=== PATIENT | male | born 1955 | race Caucasian/White ===

== ENCOUNTER 2017-04-30 09:02 | Day surgery (SDC) | payer BC, OTHER ==
[~2017-04-30 09:02] MED LIST: Acetaminophen 325 MG Tab PO PRN; Cataract Ophth Solution EYELF ONE; Moxifloxacin 0.5% Ophth Soln 3 ML Bottle EYELF ONE; Ondansetron 4 MG/2 ML SDV IVPUSH PRN; Phenylephrine 10% Ophth Soln 5 ML Bot EYELF ONE; Phenylephrine 10% Ophth Soln 5 ML Bot EYELF PRN; Povidone-Iodine 5% Sterile Ophth Soln 30 ML Bottle EYELF ONE; Proparacaine 0.5% Ophth Soln 15 ML Bottle EYELF ONE; Sodium Chloride 0.9% 10 ML Syringe FLUSH PRN; Timolol Maleate 0.5% Ophth Soln 5 ML Bottle EYELF ONE
[2017-04-30] MEDS ORDERED: Midazolam 1 MG/ML 2 ML SDV IV ONE (09:03)
[2017-04-30] MEDS ORDERED: Sodium Chloride 0.9% 10 ML Syringe IV ONE (09:03)
[2017-04-30] MEDS ORDERED: Dexamethasone 4 MG/ML SDV IV ONE (09:03)
[2017-04-30] MEDS ORDERED: Povidone-Iodine 5% Sterile Ophth Soln 30 ML Bottle EYELF ONE (10:21)
[2017-04-30] MEDS ORDERED: Tetracaine HCl/PF 0.5% 4 ML Bottle EYELF ONE (10:21)
[2017-04-30] MEDS ORDERED: Lidocaine 1% 30 ML SDV ONE (10:21)
[2017-04-30] MEDS ORDERED: Diclofenac Sodium 0.1% Ophth Soln 5 ML Bottle EYELF ONE (10:22)
[2017-04-30] MEDS ORDERED: Dexamethasone/Neomycin/Polymyxin B Ophth Oint 3.5 GM Tube EYELF ONE (10:22)
[2017-04-30] MEDS ORDERED: Apraclonidine 0.5% Ophth Soln 5 ML Bot EYELF ONE (10:22)
[2017-04-30] MEDS ORDERED: Vancomycin 500 MG SDV EYELF ONE (10:22)
[2017-04-30] MEDS ORDERED: Balanced Salt Solution Ophth Irrig 500 ML Bottle IOCULAR ONE (10:22)
[2017-04-30] MEDS ORDERED: Chondroitin Sulfate/Hyaluronate Sodium Ophth Inj 0.75 ML Syringe EYELF ONE (10:23)
--- NOTE | 2017-04-30 11:08 | OR ---
DATE: 04/30/2017 PREOPERATIVE DIAGNOSIS: Cataract, left eye. POSTOPERATIVE DIAGNOSIS: Cataract, left eye. PROCEDURE: Extracapsular cataract extraction with intraocular lens implant, left eye. ANESTHESIA: Topical/local MAC. COMPLICATIONS: None. INDICATION: Mr. Najera was seen in the clinic with complaints of blurred vision, difficulty reading, difficulty seeing road signs. His clinical examination revealed nuclear and cortical cataract. I explained options to Mr. Najera. I offered cataract surgery and I explained risks including, but not limited to infection, retinal detachment, loss of vision, need for additional surgery, and risks associated with anesthesia. We discussed implant options. He has requested a monofocal implant. He is a habitual myop, and we have discussed refractive targets. He has requested a target of [id number] myopia. He understands that he will likely need glasses for best vision, symptomatic. He voiced an understanding with respect to risks and options and is motivated to proceed. OPERATIVE DESCRIPTION: After informed consent was obtained and the risks, benefits, and alternatives were explained, the patient was brought to the operative suite and topical anesthesia was administered. The patient was then prepped and draped in the sterile fashion and attention was placed on the left eye. A sterile lid speculum was placed into the left eye to allow operative exposure. A full-thickness paracentesis was made in the temporal portion of the operative eye. Preservative-free lidocaine 0.1 mL was injected into the anterior chamber followed by viscoelastic. A full-thickness corneal incision was then made into the anterior chamber. A bent needle cystotome was used to create a small mickey in the anterior capsule. The capsulorrhexis forceps were then used to create a 360-degree curvilinear capsulorrhexis. The nucleus was then removed using a phacoemulsification handpiece and the remaining cortical material was then removed with irrigation and aspiration handpiece. Following removal of the cortical material, the capsular bag was then inspected and noted to be free of any holes or tears. Viscoelastic was then injected into the capsular bag and the intraocular lens was inserted into the capsular bag. The viscoelastic material was then removed from both the anterior and posterior chambers and from behind the IOL. The lens and capsular bag were then reinspected. The IOL was well centered and the capsular bag intact. The wound and paracentesis sites were inspected and hydrated with balanced saline solution. Both were found to be self- sealing. The intraocular pressure was assessed digitally and found to be within normal range. A good red reflex was noted at the completion of the procedure. No complications occurred during the operation. At the completion of the procedure, Maxitrol, Voltaren, and Iopidine drops were placed into the operative eye. A sterile eye shield was placed over the operative eye and the patient was transported to the postoperative recovery area having tolerated the procedure well. Postoperative instructions were given along with a postoperative appointment. The patient was advised to call with any questions or concerns. [facility] /[id number]
[2017-04-30 15:24] VITALS: BP 120/67
== END 2017-04-30 11:25 | disposition home or self-care (01) ==
LOC: DL.SDS 09:02
PROVIDERS: ATTEND Ophthalmology
DX: H25.012 Cortical age-related cataract, left eye (principal); H25.12 Age-related nuclear cataract, left eye; J44.9 Chronic obstructive pulmonary disease, unspecified; E11.9 Type 2 diabetes mellitus without complications; K21.9 Gastro-esophageal reflux disease without esophagitis; I10 Essential (primary) hypertension; Z87.891 Personal history of nicotine dependence; Z79.84 Long term (current) use of oral hypoglycemic drugs; Z79.899 Other long term (current) drug therapy; Z88.1 Allergy status to other antibiotic agents; Z88.8 Allergy status to other drugs, medicaments and biological substances
CPT/HCPCS: 66984; 82962; A9270; J1100; J2250; J3370; J7050; V2632

== ENCOUNTER 2017-05-07 06:59 | Day surgery (SDC) | payer OTHER ==
[2017-05-07] MEDS ORDERED: Ondansetron 4 MG/2 ML SDV IVPUSH PRN (07:00)
[2017-05-07] MEDS ORDERED: Phenylephrine 10% Ophth Soln 5 ML Bot EYERT PRN (07:00)
[2017-05-07] MEDS ORDERED: Midazolam 1 MG/ML 2 ML SDV IV ONE (07:00)
[2017-05-07] MEDS ORDERED: Phenylephrine 10% Ophth Soln 5 ML Bot EYERT ONE (07:00)
[2017-05-07] MEDS ORDERED: Povidone-Iodine 5% Sterile Ophth Soln 30 ML Bottle EYERT ONE ×2 (07:00→09:22)
[2017-05-07] MEDS ORDERED: Moxifloxacin 0.5% Ophth Soln 3 ML Bottle EYERT ONE (07:00)
[2017-05-07] MEDS ORDERED: Timolol Maleate 0.5% Ophth Soln 5 ML Bottle EYERT ONE (07:00)
[2017-05-07] MEDS ORDERED: Sodium Chloride 0.9% 10 ML Syringe FLUSH PRN (07:00)
[2017-05-07] MEDS ORDERED: Dexamethasone 4 MG/ML SDV IV ONE (07:00)
[2017-05-07] MEDS ORDERED: Proparacaine 0.5% Ophth Soln 15 ML Bottle EYERT ONE (07:00)
[2017-05-07] MEDS ORDERED: Acetaminophen 325 MG Tab PO PRN (07:00)
[2017-05-07] MEDS ORDERED: Cataract Ophth Solution EYERT ONE (07:00)
[2017-05-07] MEDS ORDERED: Lidocaine 1% 30 ML SDV ONE (09:22)
[2017-05-07] MEDS ORDERED: Apraclonidine 0.5% Ophth Soln 5 ML Bot EYERT ONE (09:23)
[2017-05-07] MEDS ORDERED: Tetracaine HCl/PF 0.5% 4 ML Bottle EYERT ONE (09:23)
[2017-05-07] MEDS ORDERED: Vancomycin 500 MG SDV EYERT ONE (09:24)
[2017-05-07] MEDS ORDERED: Diclofenac Sodium 0.1% Ophth Soln 5 ML Bottle EYERT ONE (09:24)
[2017-05-07] MEDS ORDERED: Dexamethasone/Neomycin/Polymyxin B Ophth Oint 3.5 GM Tube EYERT ONE (09:24)
[2017-05-07] MEDS ORDERED: Chondroitin Sulfate/Hyaluronate Sodium Ophth Inj 0.75 ML Syringe EYERT ONE (09:25)
[2017-05-07] MEDS ORDERED: Balanced Salt Solution Ophth Irrig 500 ML Bottle IOCULAR ONE (09:25)
[2017-05-07 10:21] VITALS: BP 113/74
--- NOTE | 2017-05-07 11:20 | OR ---
DATE: 05/07/2017 PREOPERATIVE DIAGNOSIS: Cataract, right eye. POSTOPERATIVE DIAGNOSIS: Cataract, right eye. PROCEDURE: Extracapsular cataract extraction with intraocular lens implant, right eye. ANESTHESIA: Topical/local MAC. COMPLICATIONS: None. INDICATION: Mr. Najera was seen in the clinic with complaints of blurred vision, difficulty reading, and difficulty seeing street signs. Clinical examination revealed nuclear and cortical cataract. I explained options; I offered cataract surgery; and I explained risks including the potential for infection, retinal detachment, loss of vision, and need for additional surgery amongst others. We discussed implant options. He has requested a monofocal implant. We discussed refractive targets, and he requested targeting mild myopia. He understands he do not require glasses for some activities following surgery. He voiced an understanding with respect to risks and wished to proceed. OPERATIVE DESCRIPTION: After informed consent was obtained and the risks, benefits, and alternatives were explained, the patient was brought to the operative suite and topical anesthesia was administered. The patient was then prepped and draped in the sterile fashion and attention was placed on the right eye. A sterile lid speculum was placed into the right eye to allow operative exposure. A full-thickness paracentesis was made in the temporal portion of the operative eye. Preservative-free lidocaine 0.1 mL was injected into the anterior chamber followed by viscoelastic. A full-thickness corneal incision was then made into the anterior chamber. A bent needle cystotome was used to create a small mickey in the anterior capsule. The capsulorrhexis forceps was then used to create a 360-degree curvilinear capsulorrhexis. The nucleus was then removed using a phacoemulsification handpiece, and the remaining cortical material was then removed with irrigation and aspiration handpiece. Following removal of the cortical material, the capsular bag was then inspected and noted to be free of any holes or tears. Viscoelastic was then injected into the capsular bag, and the intraocular lens was inserted into the capsular bag. The viscoelastic material was then removed from both the anterior and posterior chambers and from behind the IOL. The lens and capsular bag were then reinspected. The IOL was well centered and the capsular bag intact. The wound and paracentesis sites were inspected and hydrated with balanced saline solution. Both were found to be self-sealing. The intraocular pressure was assessed digitally and found to be within normal range. A good red reflex was noted at the completion of the procedure. No complications occurred during the operation. At the completion of the procedure, Maxitrol, Voltaren, and Iopidine drops were placed into the operative eye. A sterile eye shield was placed over the operative eye and the patient was transported to the postoperative recovery area having tolerated the procedure well. Postoperative instructions were given along with a postoperative appointment. The patient was advised to call with any questions or concerns. [facility] /[id number]
[2017-05-07] MEDS ORDERED: Sodium Chloride 0.9% 10 ML Syringe IV ONE (14:58)
== END 2017-05-07 10:22 | disposition home or self-care (01) ==
LOC: DL.SDS 06:59
PROVIDERS: ATTEND Ophthalmology
DX: H25.011 Cortical age-related cataract, right eye (principal); J44.9 Chronic obstructive pulmonary disease, unspecified; E11.9 Type 2 diabetes mellitus without complications; K21.9 Gastro-esophageal reflux disease without esophagitis; I10 Essential (primary) hypertension; Z87.891 Personal history of nicotine dependence; Z79.84 Long term (current) use of oral hypoglycemic drugs; Z79.899 Other long term (current) drug therapy
CPT/HCPCS: 66984; 82962; A9270; J1100; J2250; J3370; J7050; V2632

== ENCOUNTER 2020-05-12 21:11 | Emergency (ER) | payer OTHER ==
[2020-05-12 21:29] VITALS: BP 154/91; PULSE 106
[2020-05-12] MEDS ORDERED: diphenhydrAMINE 50 MG/ML SDV IVPUSH ONE (21:30)
[2020-05-12] MEDS ORDERED: methylPREDNISolone Sodium Succinate 125 MG/2 ML SDV IVPUSH ONE (21:30)
--- NOTE | 2020-05-12 21:36 | EDM.PDOC ---
ED HPI GENERAL MEDICAL PROBLEM - General Chief Complaint: Allergic Reaction Stated Complaint: REACTION TO MEDICATION FACE SWELLING Time Seen by Provider: 05/12/20 21:31 Source of Information: Reports: Patient History Limitations: Reports: No Limitations - History of Present Illness INITIAL COMMENTS - FREE TEXT/NARRATIVE: states on chemo and Onco is Tx him for his tooth abscess with clinda 450mg qid. took one dose and developed swelling in both cheek areas. denies SOB, no drooling. . lower frontal tooth. Pain Score (Numeric/FACES): 5 - Related Data Allergies Allergy/AdvReac Type Severity Reaction Status Date / Time cephalexin [Cephalexin] Allergy Rash Verified 05/12/20 21:29 other environmental related Allergy Cannot Uncoded 05/12/20 21:29 things Remember Home Meds: Home Meds Budesonide/Formoterol [Symbicort 160-4.5 MCG] 4.5 - 160 mcg INH BID 03/17/13 [H istory] Losartan [Cozaar] 25 mg PO DAILY 03/17/13 [History] Sertraline [Zoloft] 50 mg PO DAILY 03/17/13 [History] Albuterol [Proair HFA] 108 mcg INH DAILY 04/29/17 [History] metFORMIN [Glucophage] 500 mg PO DAILY 04/29/17 [History] Past Medical History - Past Health History Medical/Surgical History: Denies Medical/Surgical History HEENT History: Reports: Cataract, Impaired Vision Cardiovascular History: Reports: Hypertension Respiratory History: Reports: Asthma, COPD Gastrointestinal History: Reports: Chronic Diarrhea, GERD, Irritable Bowel Syndrome, Other (See Below) Other Gastrointestinal History: COLITIS Genitourinary History: Reports: None Musculoskeletal History: Reports: None Neurological History: Reports: None Psychiatric History: Reports: Depression Endocrine/Metabolic History: Reports: Diabetes, Type II Hematologic History: Reports: Anemia Immunologic History: Reports: None Oncologic (Cancer) History: Reports: Lung Dermatologic History: Reports: None - Infectious Disease History Infectious Disease History: Reports: Chicken Pox, Measles, Mumps - Past Surgical History Head Surgeries/Procedures: Reports: None HEENT Surgical History: Reports: Cataract Surgery, Tonsillectomy Cardiovascular Surgical History: Reports: None Respiratory Surgical History: Reports: Lung Resection, Thoracotomy, Other (See Below) Other Respiratory Surgeries/Procedures: left lobe resection GI Surgical History: Reports: Cholecystectomy, Colonoscopy Social & Family History - Family History Family Medical History: No Pertinent Family History HEENT: Reports: Glaucoma Cardiac: Reports: Hypertension Respiratory: Reports: Other (See Below) Other Respiratory Family Hisory: emphysema GI: Reports: Colon Polyps - Caffeine Use Caffeine Use: Reports: Coffee, Soda, Tea - Living Situation & Occupation Living situation: Reports: with Family ED ROS ALLERGIC REACTION - Review of Systems Review Of Systems: Comprehensive ROS is negative, except as noted in HPI. ED EXAM GENERAL NO PERIP PULSE - Physical Exam Exam: See Below Exam Limited By: No Limitations General Appearance: Alert, WD/WN, Anxious, Mild Distress Ears: Hearing Grossly Normal Throat/Mouth: Normal Inspection, Normal Oropharynx, Normal Voice, No Airway Compromise, Other (mild cheek swelling) Head: Atraumatic Neck: Non-Tender, Full Range of Motion Respiratory/Chest: No Respiratory Distress Cardiovascular: Regular Rate, Rhythm GI/Abdominal: Soft, Non-Tender (Male) Exam: Deferred Rectal (Males) Exam: Deferred Back Exam: Full Range of Motion Extremities: Normal Range of Motion Neurological: Alert, Oriented, Normal Cognition, Normal Gait, No Motor/Sensory Deficits Psychiatric: Normal Affect, Normal Mood Skin Exam: Warm, Dry, Normal Color Lymphatic: No Adenopathy Course - Vital Signs Last Recorded V/S: Last Vital Signs Temp 36.0 C L 05/12/20 21:18 Pulse 106 H 05/12/20 21:18 Resp 16 05/12/20 21:18 BP 154/91 H 05/12/20 21:18 Pulse Ox 99 05/12/20 21:18 - Orders/Labs/Meds Orders: Active Orders 24 hr Category Date Time Status diphenhydrAMINE [Benadryl] Med 05/12/20 21:30 Once 25 mg IVPUSH ONETIME ONE methylPREDNISolone Sod Succ [Solu-MEDROL] Med 05/12/20 21:30 Once 125 mg IVPUSH ONETIME ONE Medication Orders Diphenhydramine HCl (Benadryl) 25 mg IVPUSH ONETIME ONE Stop: 05/12/20 21:31 Methylprednisolone Sodium Succinate (Solu-Medrol) 125 mg IVPUSH ONETIME ONE Stop: 05/12/20 21:31 Meds: Medications Generic Name Dose Route Start Last Admin Trade Name Freq PRN Reason Stop Dose Admin Diphenhydramine HCl 25 mg 05/12/20 21:30 Benadryl IVPUSH 05/12/20 21:31 ONETIME ONE Methylprednisolone Sodium Succinate 125 mg 05/12/20 21:30 Solu-Medrol IVPUSH 05/12/20 21:31 ONETIME ONE Departure - Departure Time of Disposition: 21:34 Disposition: Home, Self-Care 01 Condition: Good Clinical Impression: Medication reaction Qualifiers: Encounter type: initial encounter Qualified Code(s): T50.905A - Adverse effect of unspecified drugs, medicaments and biological substances, initial encounter - Discharge Information Additional Instructions: 1) stop clindamycin 2) take benadryl 25mg 3 to 4 times daily for cheek swelling 3) notify Oncologist Friday about anti-biotic change 4) recheck if there is any change or concern rx given; amoxil 250mg qid x 40 medrol dospak Sepsis Event Note (ED) - Evaluation Sepsis Screening Result: No Definite Risk - Focused Exam Vital Signs: Vital Signs Temp Pulse Resp BP Pulse Ox 05/12/20 21:18 36.0 C L 106 H 16 154/91 H 99 - My Orders Last 24 Hours: My Active Orders 05/12/20 21:30 diphenhydrAMINE [Benadryl] 25 mg IVPUSH ONETIME ONE methylPREDNISolone Sod Succ [Solu-MEDROL] 125 mg IVPUSH ONETIME ONE - Assessment/Plan Last 24 Hours: My Active Orders 05/12/20 21:30 diphenhydrAMINE [Benadryl] 25 mg IVPUSH ONETIME ONE methylPREDNISolone Sod Succ [Solu-MEDROL] 125 mg IVPUSH ONETIME ONE
== END 2020-05-12 21:53 | disposition home or self-care (01) ==
LOC: DL.ED 21:11
DX: R22.0 Localized swelling, mass and lump, head (principal); I10 Essential (primary) hypertension; J44.9 Chronic obstructive pulmonary disease, unspecified; E11.9 Type 2 diabetes mellitus without complications; Z88.1 Allergy status to other antibiotic agents; Z91.048 Other nonmedicinal substance allergy status; Z79.899 Other long term (current) drug therapy; Z79.84 Long term (current) use of oral hypoglycemic drugs; T36.8X5A Adverse effect of other systemic antibiotics, initial encounter
CPT/HCPCS: 96374; 96375; 99283; J1200; J2930

== ENCOUNTER 2020-12-10 10:22 | Emergency (ER) | payer OTHER ==
[2020-12-10 10:38] VITALS: BP 157/88; PULSE 100
--- NOTE | 2020-12-10 13:40 | EDM.PDOC ---
Scribed by Molly Lindquist 12/10/20 1240 for Stefania Stuart NP ED HPI GENERAL MEDICAL PROBLEM - General Chief Complaint: Respiratory Problem Stated Complaint: COVID EXPOSURE, COUGHING Time Seen by Provider: 12/10/20 12:20 Source of Information: Reports: Patient, RN, RN Notes Reviewed History Limitations: Reports: No Limitations - History of Present Illness INITIAL COMMENTS - FREE TEXT/NARRATIVE: Patient is a 65-year-old male who present to ER with complaint of fever and exposure to COVID. Patient states he has history of lung CA with wedge lobectomy. Symptoms began yesterday. Dolores who lives with him tested positive on Friday. Patient states he would like to consult with his oncologist regarding treatment for COVID. Onset: Gradual Duration: Constant Location: Reports: Head Quality: Reports: Ache Severity: Moderate Improves with: Reports: None Worsens with: Reports: None Associated Symptoms: Reports: No Other Symptoms Chest Pain Score (Numeric/FACES): 2 - Related Data Allergies Allergy/AdvReac Type Severity Reaction Status Date / Time cephalexin [Cephalexin] Allergy Rash Verified 12/10/20 10:34 other environmental related Allergy Cannot Uncoded 05/12/20 21:29 things Remember Home Meds: Home Meds Budesonide/Formoterol [Symbicort 160-4.5 MCG] 4.5 - 160 mcg INH BID 03/17/13 [History] Losartan [Cozaar] 25 mg PO DAILY 03/17/13 [History] Sertraline [Zoloft] 50 mg PO DAILY 03/17/13 [History] Albuterol [Proair HFA] 108 mcg INH DAILY 04/29/17 [History] metFORMIN [Glucophage] 500 mg PO DAILY 04/29/17 [History] Past Medical History - Past Health History Medical/Surgical History: Denies Medical/Surgical History HEENT History: Reports: Cataract, Impaired Vision Cardiovascular History: Reports: Hypertension Respiratory History: Reports: Asthma, COPD Gastrointestinal History: Reports: Chronic Diarrhea, GERD, Irritable Bowel Syndrome, Other (See Below) Other Gastrointestinal History: COLITIS Genitourinary History: Reports: None Musculoskeletal History: Reports: None Neurological History: Reports: None Psychiatric History: Reports: Depression Endocrine/Metabolic History: Reports: Diabetes, Type II Hematologic History: Reports: Anemia Immunologic History: Reports: None Oncologic (Cancer) History: Reports: Lung, Lymphoma Dermatologic History: Reports: None - Infectious Disease History Infectious Disease History: Reports: Chicken Pox, Measles, Mumps - Past Surgical History Head Surgeries/Procedures: Reports: None HEENT Surgical History: Reports: Cataract Surgery, Tonsillectomy Cardiovascular Surgical History: Reports: None Respiratory Surgical History: Reports: Lung Resection, Thoracotomy, Other (See Below) Other Respiratory Surgeries/Procedures: left lobe resection GI Surgical History: Reports: Cholecystectomy, Colonoscopy Other Oncologic Surgeries/Procedures: states dx in 2019. Follow up with PET scans. Social & Family History - Family History Family Medical History: No Pertinent Family History HEENT: Reports: Glaucoma Cardiac: Reports: Hypertension Respiratory: Reports: Other (See Below) Other Respiratory Family Hisory: emphysema GI: Reports: Colon Polyps - Tobacco Use Tobacco Use Status *Q: Former Tobacco User Used Tobacco, but Quit: Yes Month/Year Tobacco Last Used: 2006 - Caffeine Use Caffeine Use: Reports: Coffee - Recreational Drug Use Recreational Drug Use: No - Living Situation & Occupation Living situation: Reports: with Family ED ROS GENERAL - Review of Systems Review Of Systems: Comprehensive ROS is negative, except as noted in HPI. ED EXAM, GENERAL - Physical Exam Exam: See Below Exam Limited By: No Limitations General Appearance: Alert, WD/WN, No Apparent Distress Eye Exam: Bilateral Eye: EOMI, Normal Inspection, PERRL Ears: Normal External Exam, Normal Canal, Hearing Grossly Normal, Normal TMs Nose: Normal Inspection, Normal Mucosa, No Blood Throat/Mouth: Normal Inspection, Normal Lips, Normal Teeth, Normal Gums, Normal Oropharynx, Normal Voice, No Airway Compromise Head: Atraumatic, Normocephalic Neck: Normal Inspection, Supple, Non-Tender, Full Range of Motion Respiratory/Chest: Lungs Clear Cardiovascular: Normal Peripheral Pulses, Regular Rate, Rhythm, No Edema, No Gallop, No JVD, No Murmur, No Rub GI/Abdominal: Normal Bowel Sounds, Soft, Non-Tender, No Organomegaly, No Distention, No Abnormal Bruit, No Mass (Male) Exam: Deferred Rectal (Males) Exam: Deferred Back Exam: Normal Inspection, Full Range of Motion, NT Extremities: Normal Inspection, Normal Range of Motion, Non-Tender, Normal Capillary Refill, No Pedal Edema Neurological: Alert, Oriented, CN II-XII Intact, Normal Cognition, Normal Gait, Normal Reflexes, No Motor/Sensory Deficits Psychiatric: Normal Affect, Normal Mood Skin Exam: Warm, Dry, Intact, Normal Color, No Rash Lymphatic: No Adenopathy Course - Vital Signs Last Recorded V/S: Last Vital Signs Temp 36.2 C 12/10/20 10:38 Pulse 100 12/10/20 10:38 Resp 20 12/10/20 10:38 BP 157/88 H 12/10/20 10:38 Pulse Ox 99 12/10/20 10:38 - Orders/Labs/Meds Orders: Active Orders 24 hr Category Date Time Status Isolation [COMM] Routine Oth 12/10/20 10:31 Active Labs: Laboratory Tests 12/10/20 Range/Units 10:46 SARS-CoV-2 RNA (IVONNE) Positive H (NEGATIVE) Departure - Departure Time of Disposition: 12:38 Disposition: Home, Self-Care 01 Condition: Good Clinical Impression: COVID, Hx of cancer of lung - Discharge Information *PRESCRIPTION DRUG MONITORING PROGRAM REVIEWED*: No *COPY OF PRESCRIPTION DRUG MONITORING REPORT IN PATIENT ERIN: No Instructions: COVID-19 Frequently Asked Questions, What You Should Know About COVID-19 to Protect Yourself and Others - CDC, COVID-19: Quarantine vs. Isolation - [facility] [facility] [place] Forms: ED Department Discharge Additional Instructions: Go home and quarantine Call your oncologist and inquire about "Regeneron" Regen-COV for COVID-19 Treat symptomatically May use Tylenol and/or ibuprofen as directed for fever pain Rest Drink plenty of fluids and stay hydrated Inquire with public health regarding having family members in your home tested Sepsis Event Note (ED) - Evaluation Sepsis Screening Result: Possible Sepsis Risk - Focused Exam Vital Signs: Vital Signs Temp Pulse Resp BP Pulse Ox 12/10/20 10:38 36.2 C 100 20 157/88 H 99 I have read and agree with the documentation that has been completed regarding this visit. By signing this record, I attest that the documentation was completed in my physical presence and is an accurate record of the encounter.
== END 2020-12-10 12:40 | disposition home or self-care (01) ==
LOC: DL.ED 10:22
DX: U07.1 COVID-19 (principal); I10 Essential (primary) hypertension; J44.9 Chronic obstructive pulmonary disease, unspecified; E11.9 Type 2 diabetes mellitus without complications; Z87.891 Personal history of nicotine dependence; Z88.1 Allergy status to other antibiotic agents; Z91.048 Other nonmedicinal substance allergy status; Z79.84 Long term (current) use of oral hypoglycemic drugs; Z79.899 Other long term (current) drug therapy
CPT/HCPCS: 87804; 99283; U0002

== ENCOUNTER 2020-12-18 22:56 | Inpatient (IN) | payer OTHER ==
[2020-12-19 00:01] LABS: ANION GAP 6.7 mEq/L (7-13); CHLORIDE,CL 98 mmol/L (98-107); SODIUM,NA 130 mmol/L (136-145)
--- NOTE | 2020-12-19 00:19 | EDM.PDOC ---
ED HPI GENERAL MEDICAL PROBLEM - General Chief Complaint: Respiratory Problem Stated Complaint: TROUBLE BREATHING COVID POSITIVE WEEK AGE Time Seen by Provider: 12/18/20 23:30 Source of Information: Reports: Patient, Family History Limitations: Reports: No Limitations - History of Present Illness INITIAL COMMENTS - FREE TEXT/NARRATIVE: ED with increased SOB Hx stage 3 lung cancer on Right upper and stage 1 on left, Dx with covid one week ago. Started home oxygen since COVID dx . Today 5L/ NC. On presentation RA 70%. Some cough. No fever, decreased appetite no vomiting. Chest discomfort with cough. Has received one COVID vaccine. Chest Pain Score (Numeric/FACES): 3 Back Pain Score (Numeric/FACES): 5 - Related Data Allergies Allergy/AdvReac Type Severity Reaction Status Date / Time cephalexin [Cephalexin] Allergy Rash Verified 12/10/20 10:34 other environmental related Allergy Cannot Uncoded 05/12/20 21:29 things Remember Home Meds: Home Meds Budesonide/Formoterol [Symbicort 160-4.5 MCG] 2 inh PO BID 03/17/13 [History] Albuterol [Proair HFA] 2 inh PO Q4H PRN 04/29/17 [History] Losartan [Cozaar] 50 mg PO DAILY #30 tablet 12/25/20 [Rx] Rivaroxaban [Xarelto] 10 mg PO WITHDINNER #30 tablet 12/25/20 [Rx] Sertraline [Zoloft] 50 mg PO DAILY #90 12/25/20 [Rx] dexAMETHasone [Decadron] 6 mg PO DAILY 2 Days #2 tab 12/25/20 [Rx] metFORMIN [Glucophage] 500 mg PO BIDMEALS #60 12/25/20 [Rx] Past Medical History - Past Health History Medical/Surgical History: Denies Medical/Surgical History HEENT History: Reports: Cataract, Impaired Vision Cardiovascular History: Reports: Hypertension Respiratory History: Reports: Asthma, COPD Other Respiratory History: stage 3 lung cancer Gastrointestinal History: Reports: Chronic Diarrhea, GERD, Irritable Bowel Syndrome, Other (See Below) Other Gastrointestinal History: COLITIS Genitourinary History: Reports: None Musculoskeletal History: Reports: None Neurological History: Reports: None Psychiatric History: Reports: Depression Endocrine/Metabolic History: Reports: Diabetes, Type II Hematologic History: Reports: Anemia Immunologic History: Reports: None Oncologic (Cancer) History: Reports: Lung, Lymphoma Dermatologic History: Reports: None - Infectious Disease History Infectious Disease History: Reports: Chicken Pox, Measles, Mumps - Past Surgical History Head Surgeries/Procedures: Reports: None HEENT Surgical History: Reports: Cataract Surgery, Tonsillectomy Cardiovascular Surgical History: Reports: None Respiratory Surgical History: Reports: Lung Resection, Thoracotomy, Other (See Below) Other Respiratory Surgeries/Procedures: left lobe resection GI Surgical History: Reports: Cholecystectomy, Colonoscopy Other Oncologic Surgeries/Procedures: states dx in 2019. Follow up with PET scans. Social & Family History - Family History Family Medical History: No Pertinent Family History HEENT: Reports: Glaucoma Cardiac: Reports: Hypertension Respiratory: Reports: Other (See Below) Other Respiratory Family Hisory: emphysema GI: Reports: Colon Polyps - Tobacco Use Tobacco Use Status *Q: Never Tobacco User Second Hand Smoke Exposure: No - Caffeine Use Caffeine Use: Reports: Coffee - Living Situation & Occupation Living situation: Reports: with Family ED ROS GENERAL - Review of Systems Review Of Systems: Comprehensive ROS is negative, except as noted in HPI. ED EXAM, GENERAL - Physical Exam Exam: See Below Exam Limited By: No Limitations General Appearance: Alert, Mild Distress Eye Exam: Bilateral Eye: EOMI Nose: Normal Inspection Throat/Mouth: Normal Inspection Head: Atraumatic, Normocephalic Neck: Normal Inspection Respiratory/Chest: Decreased Breath Sounds (greater right upper). No: Normal Breath Sounds Cardiovascular: Normal Peripheral Pulses, Regular Rate, Rhythm GI/Abdominal: Normal Bowel Sounds, Soft Back Exam: Normal Inspection Extremities: Normal Range of Motion, No Pedal Edema Neurological: Alert, Oriented #1 Interpretation EKG Date: 12/18/20 Time: 23:48 Rhythm: NSR Rate (Beats/Min): 96 [place]: Normal P-Wave: Present QRS: Normal ST-T: Normal Comparison: NA - No Prior EKG Course - Vital Signs Last Recorded V/S: Last Vital Signs Temp 97.2 F 12/25/20 12:00 Pulse 96 12/25/20 12:00 Resp 20 12/25/20 12:00 BP 131/93 H 12/25/20 12:00 Pulse Ox 94 L 12/25/20 12:00 - Orders/Labs/Meds Labs: Laboratory Tests 09/06/21 09/06/21 09/06/21 Range/Units 23:30 23:30 23:30 WBC 4.1 L (5.0-10.0) 10^3/uL RBC 5.08 (4.6-6.2) 10^6/uL Hgb 13.3 L (14.0-18.0) g/dL Hct 40.6 (40.0-54.0) % MCV 79.9 L (80-100) fL MCH 26.2 L (27.0-34.0) pg MCHC 32.8 L (33.0-35.0) g/dL Plt Count 122 L (150-450) 10^3/uL Neut % (Auto) 90.3 H (42.2-75.2) % Lymph % (Auto) 2.9 L (20.5-50.1) % [place] % (Auto) 6.6 (2-8) % Eos % (Auto) 0.2 L (1.0-3.0) % Baso % (Auto) 0.0 (0.0-1.0) % PT (9.0-12.0) SEC INR (0.9-1.2) D-Dimer, Quantitative (0-400) ng/mL ABG pH (7.35-7.45) ABG pCO2 (35-45) mmHg ABG pO2 (70-100) mmHg ABG HCO3 (22-26) mmol/L ABG O2 Saturation (95-100) % ABG Base Excess ((-2)-(+3)) mmol/L Rishabh Test O2 Delivery Device Sodium 130 L (136-145) mmol/L Potassium 3.7 (3.5-5.1) mmol/L Chloride 98 (98-107) mmol/L Carbon Dioxide 29 (21-32) mmol/L Anion Gap 6.7 L (7-13) mEq/L BUN 16 (7-18) mg/dL Creatinine 0.98 (0.70-1.30) mg/dL Est Cr Clr Drug Dosing 73.67 mL/min Estimated GFR (MDRD) > 60 BUN/Creatinine Ratio 16.3 (No establ ref range) Glucose 245 H (70-99) mg/dL Lactic Acid 2.3 H* (0.4-2.0) mmol/L Calcium 8.7 (8.5-10.1) mg/dL Magnesium 1.8 (1.8-2.4) mg/dL Total Bilirubin 0.4 (0.2-1.0) mg/dL AST 69 H (15-37) U/L ALT 163 H (16-63) U/L Alkaline Phosphatase 78 (46-116) U/L Troponin I High Sens 6 (<=76) pg/mL Total Protein 7.0 (6.4-8.2) g/dL Albumin 3.0 L (3.4-5.0) g/dL Globulin 4.0 Albumin/Globulin Ratio 0.75 12/18/20 12/19/20 Range/Units 23:30 00:14 WBC (5.0-10.0) 10^3/uL RBC (4.6-6.2) 10^6/uL Hgb (14.0-18.0) g/dL Hct (40.0-54.0) % MCV (80-100) fL MCH (27.0-34.0) pg MCHC (33.0-35.0) g/dL Plt Count (150-450) 10^3/uL Neut % (Auto) (42.2-75.2) % Lymph % (Auto) (20.5-50.1) % [place] % (Auto) (2-8) % Eos % (Auto) (1.0-3.0) % Baso % (Auto) (0.0-1.0) % PT 9.7 (9.0-12.0) SEC INR 1.0 (0.9-1.2) D-Dimer, Quantitative 682 H (0-400) ng/mL ABG pH 7.45 (7.35-7.45) ABG pCO2 38 (35-45) mmHg ABG pO2 64 L (70-100) mmHg ABG HCO3 26.2 H (22-26) mmol/L ABG O2 Saturation 93 L (95-100) % ABG Base Excess 3 ((-2)-(+3)) mmol/L Rishabh Test Positive O2 Delivery Device Om Sodium (136-145) mmol/L Potassium (3.5-5.1) mmol/L Chloride (98-107) mmol/L Carbon Dioxide (21-32) mmol/L Anion Gap (7-13) mEq/L BUN (7-18) mg/dL Creatinine (0.70-1.30) mg/dL Est Cr Clr Drug Dosing mL/min Estimated GFR (MDRD) BUN/Creatinine Ratio (No establ ref range) Glucose (70-99) mg/dL Lactic Acid (0.4-2.0) mmol/L Calcium (8.5-10.1) mg/dL Magnesium (1.8-2.4) mg/dL Total Bilirubin (0.2-1.0) mg/dL AST (15-37) U/L ALT (16-63) U/L Alkaline Phosphatase (46-116) U/L Troponin I High Sens (<=76) pg/mL Total Protein (6.4-8.2) g/dL Albumin (3.4-5.0) g/dL Globulin Albumin/Globulin Ratio Meds: Medications Discontinued Medications Generic Name Dose Route Start Last Admin Trade Name Freq PRN Reason Stop Dose Admin Acetaminophen 650 mg 12/19/20 01:36 12/24/20 21:06 Acetaminophen 325 Mg Tab PO 650 mg Q4H PRN Administration Pain (Mild 1-3)/fever Albuterol 2.5 mg 12/19/20 01:46 Albuterol 0.083% 2.5 Mg/3 Ml Neb Soln NEB Q2H PRN Wheezing Albuterol 0 gm 12/20/20 14:00 Albuterol 6.7 Gm Inhaler INH Q4HR IKER Albuterol 6.7 gm 12/19/20 18:36 Albuterol 6.7 Gm Inhaler INH Q4H PRN Shortness of Breath Albuterol/Ipratropium 3 ml 12/19/20 07:00 12/19/20 08:20 Albuterol/Ipratropium 3.0-0.5 Mg/3 Ml Neb Soln NEB 3 ml Q6HRRT IKER Administration Amoxicillin/Clavulanate Potassium 1 tab 12/23/20 21:00 12/25/20 08:08 Amoxicillin/Clavulanate K 875-125 Mg Tab PO 1 tab Q12HR IKER Administration Dexamethasone 6 mg 12/19/20 01:45 12/25/20 08:11 Dexamethasone 4 Mg/Ml Sdv IVPUSH 12/27/20 09:01 6 mg DAILY IKER Administration Dextrose/Water 50 ml 12/19/20 08:15 50% Dextrose In Water 50 Ml Syringe IVPUSH Q15M PRN Hypoglycemia Enoxaparin Sodium 40 mg 12/19/20 09:00 12/19/20 09:17 Enoxaparin 40 Mg/0.4 Ml Syringe SUBCUT 40 mg DAILY IKER Administration Enoxaparin Sodium 40 mg 12/19/20 21:00 12/21/20 08:27 Enoxaparin 40 Mg/0.4 Ml Syringe SUBCUT 40 mg Q12HR IKER Administration Glucagon 1 mg 12/19/20 08:15 Glucagon,Human Recombinant 1 Mg Vial IM Q15M PRN Hypoglycemia Glucagon 1 mg 12/23/20 17:17 Glucagon,Human Recombinant 1 Mg Vial IM Q15M PRN Hypoglycemia Heparin Sodium (Porcine) 500 units 12/25/20 14:33 12/25/20 14:44 Heparin Sodium 100 Units/Ml 5 Ml Syringe FLUSH 12/26/20 14:34 500 units ASDIRECTED PRN Administration Other Remdesivir 200 mg/ Sodium 250 mls @ 250 mls/hr 12/19/20 01:39 12/19/20 03:03 Chloride IV 12/19/20 02:38 250 mls/hr ONETIME ONE Administration Remdesivir 100 mg/ Sodium 100 mls @ 100 mls/hr 12/20/20 09:00 12/23/20 08:36 Chloride IV 12/23/20 09:59 100 mls/hr Q24H IKER Administration Sterile Water Confirm 12/19/20 02:37 12/19/20 03:05 Sterile Water For Injection Administered 12/19/20 02:38 Not Given Dose 40 mls @ as directed .ROUTE .STK-MED ONE Piperacillin Sod/Tazobactam 100 mls @ 200 mls/hr 12/19/20 03:00 12/19/20 09:57 Sod 3.375 gm/ Sodium Chloride IV Infused Q6H IKER Infusion Piperacillin Sod/Tazobactam 100 mls @ 200 mls/hr 12/19/20 13:30 12/23/20 12:20 Sod 3.375 gm/ Sodium Chloride IV 200 mls/hr Q6HR IKER Administration Insulin Glargine 20 unit 12/23/20 17:17 12/23/20 17:34 Insulin Glarg,Human.Rec.Analog 100 Unit/Ml SUBCUT 12/23/20 17:18 20 unit ONETIME ONE Administration Insulin Human Lispro 0 unit 12/19/20 12:00 12/19/20 17:11 Insulin Lispro 100 Units/Ml 3 Ml Vial SUBCUT 1 units TIDMEALS IKER Administration Protocol Insulin Human Lispro 0 unit 12/19/20 21:45 12/25/20 12:22 Insulin Lispro 100 Units/Ml 3 Ml Vial SUBCUT 3 units WITHMEALSANDBED IKER Administration Protocol Lorazepam 0.5 mg 12/19/20 02:28 12/24/20 21:07 Lorazepam 0.5 Mg Tab PO 0.5 mg Q8H PRN Administration Anxiety Losartan Potassium 25 mg 12/19/20 09:00 12/24/20 12:02 Losartan 50 Mg Tab PO Not Given DAILY IKER Losartan Potassium 25 mg 12/24/20 09:00 12/24/20 12:02 Losartan 25 Mg Tab PO Not Given DAILY IKER Losartan Potassium 50 mg 12/25/20 09:00 12/25/20 08:08 Losartan 50 Mg Tab PO 50 mg DAILY IKER Administration Losartan Potassium 50 mg 12/24/20 12:00 12/24/20 11:48 Losartan 50 Mg Tab PO 12/24/20 12:01 50 mg ONETIME ONE Administration Metformin HCl 500 mg 12/23/20 13:00 12/25/20 08:07 Metformin 500 Mg Tab PO 500 mg DAILY IKER Administration Mometasone Furoate/Formoterol Fumar 0 puff 12/19/20 21:00 12/25/20 08:09 Formoterol/Mometasone 200-5 Mcg 8.8 Gm Inhaler IH 2 puff BID IKER Administration Rivaroxaban 10 mg 12/21/20 18:00 12/24/20 19:45 Rivaroxaban 10 Mg Tab PO 10 mg WITHDINNER IKER Administration Sertraline HCl 50 mg 12/19/20 09:00 12/25/20 08:08 Sertraline 50 Mg Tab PO 50 mg DAILY IKER Administration Sodium Chloride 10 ml 12/19/20 09:58 12/19/20 13:56 Sodium Chloride 0.9% 10 Ml Syringe IV 10 ml ASDIRECTED PRN Administration Keep Vein Open Sodium Chloride 10 ml 12/19/20 19:35 12/25/20 08:13 Sodium Chloride 0.9% 10 Ml Syringe FLUSH 10 ml ASDIRECTED PRN Administration IV Use Departure - Departure Time of Disposition: 01:25 Disposition: Admitted As Inpatient 67 Condition: Undetermined Clinical Impression: Hypoxia, COVID, Hx of malignant neoplasm of lung - Discharge Information *PRESCRIPTION DRUG MONITORING PROGRAM REVIEWED*: No *COPY OF PRESCRIPTION DRUG MONITORING REPORT IN PATIENT ERIN: No
[2020-12-19 00:37] LABS: O2 DELIVERY DEVICE OM
[2020-12-19 00:38] LABS: ALLEN TEST POSITIVE; BASE EXCESS ARTERIAL 3 mmol/L ((-2)-(+3)); BICARBONATE,ARTERIAL 26.2 mmol/L (22-26); O2 SATURATION ARTERIAL 93 % (95-100); PCO2 ARTERIAL 38 mmHg (35-45); PO2 ARTERIAL 64 mmHg (70-100)
--- NOTE | 2020-12-19 00:39 | CT ---
PROCEDURE INFORMATION: Exam: CT Chest Without Contrast; Diagnostic Exam date and time: 12/18/2020 11:57 PM Age: 65 years old Clinical indication: Other: SOB covid, HX lung CA TECHNIQUE: Imaging protocol: Diagnostic computed tomography of the chest without contrast. Radiation optimization: All CT scans at this facility use at least one of these dose optimization techniques: automated exposure control; mA and/or kV adjustment per patient size (includes targeted exams where dose is matched to clinical indication); or iterative reconstruction. COMPARISON: CT CHEST 03/03/2013 1:34 PM FINDINGS: Tubes, catheters and devices: Right chest Port-A-Cath is noted. Lungs: Right upper lobe lobular and slightly spiculated mass measuring 2.4 x 2.4 cm. Patient has a known history of lung cancer. This focus was not present on a previous study from 2012. There is un appearance of underlying emphysema and pulmonary fibrosis. Some areas of peripheral ground-glass opacification are noted. Lateral segment right middle lobe. Lingular segment of left upper lobe. Posterior mid left lower lobe. Cannot exclude superimposed interstitial pneumonitis. Pleural spaces: Unremarkable. No pneumothorax. No pleural effusion. Heart: Normal heart size. No pericardial effusion. Mediastinal space: Small hiatal hernia. No acute edema. Aorta: Unremarkable. No aortic aneurysm. Lymph nodes: Pretracheal mediastinal lymph node 22 x 13 mm. Probable right hilar lymph node measuring approximately 2.3 x 2.1 cm. Limited evaluation without IV contrast. Liver: Fatty liver change. Gallbladder and bile ducts: Previous cholecystectomy. Adrenal glands: The adrenal glands are normal in size and contour bilaterally. Bones/joints: Unremarkable. No acute fracture. Soft tissues: Unremarkable. IMPRESSION: 1. Right upper lobe lung mass. Patient with a known history of lung cancer. 2. Chronic appearing interstitial fibrosis features. 3. Areas of more subtle peripheral ground-glass opacification involving the lateral segment of the right middle lobe, lingular segment of left upper lobe, and left lower lobe mid posterior region. Possibility of a superimposed interstitial pneumonitis cannot be excluded. 4. No pleural effusion. 5. Pretracheal enlarged mediastinal lymph node. Probable right hilar enlarged lymph node. Limited evaluation without IV contrast. 6. Right chest Port-A-Cath. 7. Fatty liver change. 8. No adrenal nodules. 9. Previous cholecystectomy. 10. Hiatal hernia.
[2020-12-19] MEDS ORDERED: REMDESIVIR 200 MG in Sodium Chloride 0.9% 250 ML IV ONE (01:39)
[2020-12-19] MEDS ORDERED: Albuterol 0.083% 2.5 MG/3 ML Neb Soln NEB PRN (01:46)
--- NOTE | 2020-12-19 01:46 | PCM.HP ---
H&P History of Present Illness - General Date of Service: 12/19/20 Admit Problem/Dx: Admission Diagnosis/Problem Admission Diagnosis/Problem Hypoxia Source of Information: Patient, EMS, EMS Notes Reviewed, Family - History of Present Illness Initial Comments - Free Text/Narative: Patient is a 65-year-old male with a past medical history of bilateral separate non-small cell lung cancer status post lobectomy, chemotherapy, radiation, immunotherapy, hypertension who presented with shortness of breath after COVID- 19 diagnosis. Patient states that he was exposed to COVID-19 pneumonia by family member. Patient states he first noticed worsening shortness of breath on 12-08-20. Patient tested positive for COVID-19 on 12-09-20. Patient states he had progressive worsening shortness of breath since the and he even borrowed a family member's oxygen concentrator. Patient states he does not use oxygen at baseline. Patient dates that he came in tonight because despite the supplemental oxygen he continued or worsening shortness of breath. He denies any fevers, chest pains, lower extremity swelling, headaches, vision changes, focal weakness or numbness. Patient presented the emergency department he was significantly hypoxic and required a nonrebreather to maintain oxygen saturations. Vital signs otherwise stable. Laboratory studies included a sodium 130, potassium 3.7, creatinine 0.98, white count 4.1, hemoglobin 13, platelet 122, AST 69, ALT 163, CRP 2.6, INR 1.0, troponin , D-dimer 682, lactic acid 2.3. ABG was obtained which showed pH of 7.45, PCO2 of 38, PO2 of 64. CT chest was obtained which showed patient's known right upper lobe mass, interstitial fibrosis, pretracheal lymph nodes, no pleural effusion was noted, groundglass opacities noted in the right middle lobe, left upper lobe, left lower lobe. Patient was admitted for further evaluation. I initially placed patient on a high flow nasal cannula 80% FiO2 he was maintaining oxygen saturations. I had a prolonged discussion with the patient regarding his COVID- 19 pneumonia diagnosis, his significant comorbidities with his lung cancer history. Patient maintained that he wished to be full code at this time. Patient states that he is not sure what the next step for his cancer treatment is and states that he did have a trial of immunotherapy which he had a reaction to. - Related Data Allergies/Adverse Reactions: Allergies Allergy/AdvReac Type Severity Reaction Status Date / Time cephalexin [Cephalexin] Allergy Rash Verified 12/10/20 10:34 other environmental related Allergy Cannot Uncoded 05/12/20 21:29 things Remember Home Medications: Home Meds Budesonide/Formoterol [Symbicort 160-4.5 MCG] 4.5 - 160 mcg INH BID 03/17/13 [History] Losartan [Cozaar] 25 mg PO DAILY 03/17/13 [History] Sertraline [Zoloft] 50 mg PO DAILY 03/17/13 [History] Albuterol [Proair HFA] 108 mcg INH DAILY 04/29/17 [History] metFORMIN [Glucophage] 500 mg PO DAILY 04/29/17 [History] Past Medical History - Past Health History Medical/Surgical History: Denies Medical/Surgical History HEENT History: Reports: Cataract, Impaired Vision Cardiovascular History: Reports: Hypertension Respiratory History: Reports: Asthma, COPD Other Respiratory History: stage 3 lung cancer Gastrointestinal History: Reports: Chronic Diarrhea, GERD, Irritable Bowel Syndrome, Other (See Below) Other Gastrointestinal History: COLITIS Genitourinary History: Reports: None Musculoskeletal History: Reports: None Neurological History: Reports: None Psychiatric History: Reports: Depression Endocrine/Metabolic History: Reports: Diabetes, Type II Hematologic History: Reports: Anemia Immunologic History: Reports: None Oncologic (Cancer) History: Reports: Lung, Lymphoma Dermatologic History: Reports: None - Infectious Disease History Infectious Disease History: Reports: Chicken Pox, Measles, Mumps - Past Surgical History Head Surgeries/Procedures: Reports: None HEENT Surgical History: Reports: Cataract Surgery, Tonsillectomy Cardiovascular Surgical History: Reports: None Respiratory Surgical History: Reports: Lung Resection, Thoracotomy, Other (See Below) Other Respiratory Surgeries/Procedures: left lobe resection GI Surgical History: Reports: Cholecystectomy, Colonoscopy Other Oncologic Surgeries/Procedures: states dx in 2020. Follow up with PET scans. Social & Family History - Family History Family Medical History: No Pertinent Family History HEENT: Reports: Glaucoma Cardiac: Reports: Hypertension Respiratory: Reports: Other (See Below) Other Respiratory Family Hisory: emphysema GI: Reports: Colon Polyps - Tobacco Use Tobacco Use Status *Q: Never Tobacco User Second Hand Smoke Exposure: No - Caffeine Use Caffeine Use: Reports: Coffee - Living Situation & Occupation Living situation: Reports: with Family H&P Review of Systems - Review of Systems: Review Of Systems: Comprehensive ROS is negative, except as noted in HPI. Exam - Exam Exam: See Below - Vital Signs Vital Signs: Last Vital Signs Temp 97.6 F 12/18/20 23:25 Pulse 118 H 12/18/20 23:25 Resp 24 H 12/18/20 23:25 BP 134/89 12/18/20 23:25 Pulse Ox Weight: 184 lb - Exam Quality Assessment: Other (Patient is on high flow nasal cannula) General: Alert, Oriented HEENT: Conjunctiva Clear Neck: Supple, Trachea Midline Lungs: Decreased Breath Sounds (Significantly decreased breath sounds bilaterally, crackles noted in right mid and lower lung, patient in obvious respiratory distress on high flow nasal cannula), Crackles Cardiovascular: Regular Rhythm, Tachycardia GI/Abdominal Exam: Normal Bowel Sounds, Soft Extremities: Normal Inspection Peripheral Pulses: 2+: Radial (L), Radial (R) Skin: Warm, Dry Neurological: Cranial Nerves Intact Neuro Extensive - Mental Status: Alert, Oriented x3 Neuro Extensive - Motor, Sensory, Reflexes: CN II-XII Intact Psychiatric: Alert, Normal Affect - Patient Data Lab Results Last 24 hrs: Laboratory Results - last 24 hr 12/18/20 12/18/20 12/18/20 Range/Units 23:30 23:30 23:30 WBC 4.1 L (5.0-10.0) 10^3/uL RBC 5.08 (4.6-6.2) 10^6/uL Hgb 13.3 L (14.0-18.0) g/dL Hct 40.6 (40.0-54.0) % MCV 79.9 L (80-100) fL MCH 26.2 L (27.0-34.0) pg MCHC 32.8 L (33.0-35.0) g/dL Plt Count 122 L (150-450) 10^3/uL Neut % (Auto) 90.3 H (42.2-75.2) % Lymph % (Auto) 2.9 L (20.5-50.1) % Lewis % (Auto) 6.6 (2-8) % Eos % (Auto) 0.2 L (1.0-3.0) % Baso % (Auto) 0.0 (0.0-1.0) % PT (9.0-12.0) SEC INR (0.9-1.2) D-Dimer, Quantitative (0-400) ng/mL ABG pH (7.35-7.45) ABG pCO2 (35-45) mmHg ABG pO2 (70-100) mmHg ABG HCO3 (22-26) mmol/L ABG O2 Saturation (95-100) % ABG Base Excess ((-2)-(+3)) mmol/L Rishabh Test O2 Delivery Device Sodium 130 L (136-145) mmol/L Potassium 3.7 (3.5-5.1) mmol/L Chloride 98 (98-107) mmol/L Carbon Dioxide 29 (21-32) mmol/L Anion Gap 6.7 L (7-13) mEq/L BUN 16 (7-18) mg/dL Creatinine 0.98 (0.70-1.30) mg/dL Est Cr Clr Drug Dosing 73.67 mL/min Estimated GFR (MDRD) > 60 BUN/Creatinine Ratio 16.3 (No establ ref range) Glucose 245 H (70-99) mg/dL Lactic Acid 2.3 H* (0.4-2.0) mmol/L Calcium 8.7 (8.5-10.1) mg/dL Magnesium 1.8 (1.8-2.4) mg/dL Total Bilirubin 0.4 (0.2-1.0) mg/dL AST 69 H (15-37) U/L ALT 163 H (16-63) U/L Alkaline Phosphatase 78 (46-116) U/L Troponin I High Sens 6 (<=76) pg/mL C-Reactive Protein (0.0-0.9) mg/dL Total Protein 7.0 (6.4-8.2) g/dL Albumin 3.0 L (3.4-5.0) g/dL Globulin 4.0 Albumin/Globulin Ratio 0.75 12/18/20 12/19/20 12/19/20 Range/Units 23:30 00:14 23:30 WBC (5.0-10.0) 10^3/uL RBC (4.6-6.2) 10^6/uL Hgb (14.0-18.0) g/dL Hct (40.0-54.0) % MCV (80-100) fL MCH (27.0-34.0) pg MCHC (33.0-35.0) g/dL Plt Count (150-450) 10^3/uL Neut % (Auto) (42.2-75.2) % Lymph % (Auto) (20.5-50.1) % Lewis % (Auto) (2-8) % Eos % (Auto) (1.0-3.0) % Baso % (Auto) (0.0-1.0) % PT 9.7 (9.0-12.0) SEC INR 1.0 (0.9-1.2) D-Dimer, Quantitative 682 H (0-400) ng/mL ABG pH 7.45 (7.35-7.45) ABG pCO2 38 (35-45) mmHg ABG pO2 64 L (70-100) mmHg ABG HCO3 26.2 H (22-26) mmol/L ABG O2 Saturation 93 L (95-100) % ABG Base Excess 3 ((-2)-(+3)) mmol/L Rishabh Test Positive O2 Delivery Device Om Sodium (136-145) mmol/L Potassium (3.5-5.1) mmol/L Chloride (98-107) mmol/L Carbon Dioxide (21-32) mmol/L Anion Gap (7-13) mEq/L BUN (7-18) mg/dL Creatinine (0.70-1.30) mg/dL Est Cr Clr Drug Dosing mL/min Estimated GFR (MDRD) BUN/Creatinine Ratio (No establ ref range) Glucose (70-99) mg/dL Lactic Acid (0.4-2.0) mmol/L Calcium (8.5-10.1) mg/dL Magnesium (1.8-2.4) mg/dL Total Bilirubin (0.2-1.0) mg/dL AST (15-37) U/L ALT (16-63) U/L Alkaline Phosphatase (46-116) U/L Troponin I High Sens (<=76) pg/mL C-Reactive Protein 2.6 H (0.0-0.9) mg/dL Total Protein (6.4-8.2) g/dL Albumin (3.4-5.0) g/dL Globulin Albumin/Globulin Ratio Result Diagrams: 12/18/20 23:30 12/18/20 23:30 Shine Results Last 24 hrs: Microbiology 12/18/20 23:30 Anaerobic Blood Culture - Final Blood - Picc Line - Problem List (1) COVID SNOMED Code(s): 853052429 ICD Code: U07.1 - COVID-19 Status: Acute Current Visit: No (2) Hx of cancer of lung SNOMED Code(s): 795816248, 135196326 ICD Code: Z85.118 - PERSONAL HISTORY OF MALIGNANT NEOPLASM OF BRONCHUS AND LUNG Status: Acute Current Visit: No (3) Hypoxia SNOMED Code(s): 406436590 ICD Code: R09.02 - HYPOXEMIA Status: Acute Current Visit: No (4) ARDS (adult respiratory distress syndrome) SNOMED Code(s): 89420309, 22267249 ICD Code: J80 - ACUTE RESPIRATORY DISTRESS SYNDROME Status: Acute Current Visit: Yes Problem List Initiated/Reviewed/Updated: Yes Orders Last 24hrs: Active Orders 24 hr Category Date Time Status Admission Diagnosis [ADT] Stat ADT 12/19/20 00:57 Ordered Admission Status [Patient Status] [ADT] Routine ADT 12/19/20 00:57 Active Blood Glucose Check, Bedside [RC] BIDMEALS Care 12/19/20 01:36 Ordered Nurse Communication: Isolation [RC] ASDIRECTED Care 12/19/20 01:40 Ordered Oxygen Therapy [RC] PRN Care 12/19/20 01:36 Ordered Up With Assistance [RC] ASDIRECTED Care 12/19/20 01:36 Ordered VTE/DVT Education [RC] PER UNIT ROUTINE Care 12/19/20 01:36 Ordered Vital Signs [RC] Q4H Care 12/19/20 01:36 Ordered Nothing per Oral Now Diet [DIET] Diet 12/19/20 Breakfast Ordered BILIRUBIN DIRECT [CHEM] DAILY Lab 12/19/20 01:45 Stop Req CULTURE BLOOD [BC] Stat Lab 12/18/20 23:30 Results CULTURE BLOOD [BC] Stat Lab 12/18/20 23:35 Received Acetaminophen [TylenoL] Med 12/19/20 01:36 Ordered 650 mg PO Q4H PRN Enoxaparin [Lovenox] Med 12/19/20 09:00 Ordered 40 mg SUBCUT DAILY Remdesivir 100 mg Med 12/20/20 09:00 Ordered Sodium Chloride 0.9% [Normal Saline] 100 ml IV Q24H Remdesivir 200 mg Med 12/19/20 01:39 Ordered Sodium Chloride 0.9% [Normal Saline] 250 ml IV ONETIME dexAMETHasone [Decadron] Med 12/19/20 01:45 Ordered 6 mg IVPUSH DAILY Blood Culture x2 Reflex Set [OM.PC] Stat Oth 12/18/20 23:39 Ordered Isolation [COMM] Stat Oth 12/19/20 01:39 Ordered Code Status [Resuscitation Status] Stat Resus Stat 12/19/20 00:45 Ordered Medication Orders Acetaminophen (Acetaminophen 325 Mg Tab) 650 mg PO Q4H PRN PRN Reason: Pain (Mild 1-3)/fever Dexamethasone (Dexamethasone 4 Mg/Ml Sdv) 6 mg IVPUSH DAILY [facility] Stop: 12/27/20 09:01 Enoxaparin Sodium (Enoxaparin 40 Mg/0.4 Ml Syringe) 40 mg SUBCUT DAILY [facility] Remdesivir 200 mg/ Sodium (Chloride) 250 mls @ 250 mls/hr IV ONETIME ONE Stop: 12/19/20 02:38 Remdesivir 100 mg/ Sodium (Chloride) 100 mls @ 100 mls/hr IV Q24H [facility] Stop: 12/23/20 09:59 Assessment/Plan Comment:: 65-year-old male with significant pulmonary comorbidities including bilateral pulmonary neoplasms status post chemotherapy, radiation, immunotherapy and lobectomy who presented with acute hypoxic respiratory failure secondary to COVID-19 pneumonia. Acute hypoxic respiratory failure secondary to COVID-19 pneumonia/ARDS -Noted groundglass opacities in multiple lung elder with positive covid test on 12/09/20 - overall consistent with COVID-19 pneumonia in a background of interstitial fibrosis likely secondary to patient's recent lung cancer treatments, right upper lobe mass also noted on CT scan with patient's known non-small cell lung cancer -Patient is requiring initially nonrebreather and now high flow nasal cannula, current FiO2 is 80% - PA FiO2 ratio less than 100, patient meets criteria for severe ARDS - continuous pulse oximetry, telemetry monitoring -We will initiate treatment dexamethasone 6 mg daily for 10 days of treatment, remdesivir 200 mg initial with 100 mg daily - daily ALT level while on remdesivir - d/c if ALT >5x upper limit of normal -discussed the benefits and risks of remdesivir treatment patient was agreeable -Scheduled DuoNeb, albuterol nebulizer as needed -Self proning as tolerated -Zosyn for any superimposed bacterial pneumonia concerns -Overall patient is significantly poor prognosis, had prolonged discussion about CODE STATUS -at this point patient wishes to be full code despite the low chance of survival given his non-small cell lung cancer, history of lobectomy and severe ARDS secondary to COVID-19 pneumonia Diabetes mellituswell controlled on Metformin, hold Metformin, twice daily glucose checks for now, may need setting scale insulin given likely hyperglycemia with steroid administration Hypertensioncontinue losartan as studies have shown ours to be potentially beneficial Anxiety/depressioncontinue sertraline, ordered 0.5 mg Ativan every 8 hour for anxiety due to dyspnea Fluidsnone Electrolyteswithin normal lites Dietn.p.o. for now given respiratory status DVT prophylaxis Lovenox
[2020-12-19] MEDS ORDERED: Water For Injection, Sterile 40 ML ONE (02:37)
[2020-12-19] MEDS: Dexamethasone 4 MG/ML SDV IVPUSH SCH ×2 (03:02→09:17)
[2020-12-19] MEDS: LORazepam 0.5 MG Tab PO PRN (03:04)
[2020-12-19] MEDS: Piperacillin/Tazobactam 3.375 GM in Sodium Chloride 0.9% 100 ML IV SCH ×5 (04:24→23:56)
[2020-12-19] MEDS ORDERED: Albuterol/Ipratropium 3.0-0.5 MG/3 ML Neb Soln NEB SCH (07:00)
[2020-12-19] MEDS ORDERED: 50% Dextrose in Water 50 ML Syringe IVPUSH PRN (08:15)
[2020-12-19] MEDS ORDERED: Glucagon,Human Recombinant 1 MG Vial IM PRN (08:15)
[2020-12-19] MEDS ORDERED: Enoxaparin 40 MG/0.4 ML Syringe SUBCUT SCH (09:00)
[2020-12-19] MEDS: Sertraline 50 MG Tab PO SCH (09:17)
[2020-12-19] MEDS: Losartan 50 MG Tab PO SCH (09:18)
[2020-12-19] MEDS: Insulin Lispro 100 Units/ML 3 ML Vial SUBCUT SCH ×3 (13:08→21:48)
[2020-12-19] MEDS: Sodium Chloride 0.9% 10 ML Syringe IV PRN ×2 (13:12→13:56)
[2020-12-19] MEDS ORDERED: Albuterol 6.7 GM Inhaler INH PRN (18:36)
[2020-12-19] MEDS: Acetaminophen 325 MG Tab PO PRN (20:03)
[2020-12-19] MEDS: Formoterol/Mometasone 200-5 MCG 8.8 GM Inhaler IH SCH (21:17)
[2020-12-19] MEDS: Enoxaparin 40 MG/0.4 ML Syringe SUBCUT SCH (21:18)
[2020-12-19] MEDS: Sodium Chloride 0.9% 10 ML Syringe FLUSH PRN (23:55)
[2020-12-20] MEDS: LORazepam 0.5 MG Tab PO PRN ×2 (00:10→21:21)
[2020-12-20] MEDS: Sodium Chloride 0.9% 10 ML Syringe FLUSH PRN (06:05)
[2020-12-20] MEDS: Piperacillin/Tazobactam 3.375 GM in Sodium Chloride 0.9% 100 ML IV SCH ×3 (06:05→17:10)
[2020-12-20] MEDS: Enoxaparin 40 MG/0.4 ML Syringe SUBCUT SCH ×2 (08:07→21:10)
[2020-12-20] MEDS: REMDESIVIR 100 MG in Sodium Chloride 0.9% 100 ML IV SCH (08:07)
[2020-12-20] MEDS: Dexamethasone 4 MG/ML SDV IVPUSH SCH (08:07)
[2020-12-20] MEDS: Sertraline 50 MG Tab PO SCH (08:08)
[2020-12-20] MEDS: Losartan 50 MG Tab PO SCH (08:08)
[2020-12-20] MEDS: Formoterol/Mometasone 200-5 MCG 8.8 GM Inhaler IH SCH ×2 (08:17→21:10)
[2020-12-20] MEDS: Insulin Lispro 100 Units/ML 3 ML Vial SUBCUT SCH ×4 (08:20→21:09)
[2020-12-20] MEDS: Acetaminophen 325 MG Tab PO PRN (12:13)
--- NOTE | 2020-12-20 12:59 | PCM.PN ---
- General Info Date of Service: 12/20/20 Admission Dx/Problem (Free Text): Admission Diagnosis/Problem Admission Diagnosis/Problem Hypoxia Subjective Update: 12/20/20 afebrile/vss on high flow 80% down to 7 liter flow // tolerating prone . desats hard when walking to b.r. no chest pain . slept fair. appetite poor. i/os normal voiding patterns. lab reviewed p.e. lungs decreased throughout but clear. no ronchii or rales. abd benign cor rrr 110 /sats 92-96% at rest . no edema feet well perfused . assess. covid syndrome on high flow 80 to 75 /o2 o2 .6.. day 13 by symptoms count . cont current support and wean as tolerated. b.s tolerable. boh Functional Status: Reports: Pain Controlled - Review of Systems General: Reports: No Symptoms HEENT: Reports: No Symptoms Pulmonary: Reports: No Symptoms, Shortness of Breath, Cough, Wheezing Cardiovascular: Reports: No Symptoms Gastrointestinal: Reports: No Symptoms Genitourinary: Reports: No Symptoms Musculoskeletal: Reports: No Symptoms Skin: Reports: No Symptoms Neurological: Reports: No Symptoms Psychiatric: Reports: No Symptoms - Patient Data Vitals - Most Recent: Last Vital Signs Temp 36.4 C 12/20/20 11:54 Pulse 78 12/20/20 11:54 Resp 20 12/20/20 11:54 BP 134/78 12/20/20 11:54 Pulse Ox 90 L 12/20/20 11:54 Weight - Most Recent: 82.463 kg I&O - Last 24 Hours: Intake & Output 12/19/20 12/20/20 12/20/20 22:59 06:59 14:59 Intake Total 520 200 220 Balance 520 200 220 Lab Results Last 24 Hours: Laboratory Results - last 24 hr 12/19/20 12/19/20 12/20/20 Range/Units 17:03 21:15 06:28 POC Glucose 190 H 202 H (70-99) mg/dL ALT 160 H (16-63) U/L 12/20/20 12/20/20 Range/Units 08:05 11:48 POC Glucose 146 H 275 H (70-99) mg/dL ALT (16-63) U/L Shine Results Last 24 Hours: Microbiology 12/18/20 23:35 Aerobic Blood Culture - Preliminary Blood - Picc Line NO GROWTH AFTER 1 DAY Anaerobic Blood Culture - Preliminary NO GROWTH AFTER 1 DAY 12/18/20 23:30 Aerobic Blood Culture - Preliminary Blood - Picc Line NO GROWTH AFTER 1 DAY Anaerobic Blood Culture - Final Med Orders - Current: Current Medications Acetaminophen (Acetaminophen 325 Mg Tab) 650 mg PO Q4H PRN PRN Reason: Pain (Mild 1-3)/fever Last Admin: 12/20/20 12:13 Dose: 650 mg Documented by: Albuterol (Albuterol 6.7 Gm Inhaler) 6.7 gm INH Q4H PRN PRN Reason: Shortness of Breath Dexamethasone (Dexamethasone 4 Mg/Ml Sdv) 6 mg IVPUSH DAILY [facility] Stop: 12/27/20 09:01 Last Admin: 12/20/20 08:07 Dose: 6 mg Documented by: Dextrose/Water (50% Dextrose In Water 50 Ml Syringe) 50 ml IVPUSH Q15M PRN PRN Reason: Hypoglycemia Enoxaparin Sodium (Enoxaparin 40 Mg/0.4 Ml Syringe) 40 mg SUBCUT Q12HR [facility] Last Admin: 12/20/20 08:07 Dose: 40 mg Documented by: Glucagon (Glucagon,Human Recombinant 1 Mg Vial) 1 mg IM Q15M PRN PRN Reason: Hypoglycemia Remdesivir 100 mg/ Sodium (Chloride) 100 mls @ 100 mls/hr IV Q24H [facility] Stop: 12/23/20 09:59 Last Admin: 12/20/20 08:07 Dose: 100 mls/hr Documented by: Piperacillin Sod/Tazobactam (Sod 3.375 gm/ Sodium Chloride) 100 mls @ 200 mls/hr IV Q6HR [facility] Last Admin: 12/20/20 11:49 Dose: 200 mls/hr Documented by: Insulin Human Lispro (Insulin Lispro 100 Units/Ml 3 Ml Vial) 0 unit SUBCUT WITHMEALSANDBED [facility]; Protocol Last Admin: 12/20/20 11:56 Dose: 3 units Documented by: Lorazepam (Lorazepam 0.5 Mg Tab) 0.5 mg PO Q8H PRN PRN Reason: Anxiety Last Admin: 12/20/20 00:10 Dose: 0.5 mg Documented by: Losartan Potassium (Losartan 50 Mg Tab) 25 mg PO DAILY [facility] Last Admin: 12/20/20 08:08 Dose: 25 mg Documented by: Mometasone Furoate/Formoterol Fumar (Formoterol/Mometasone 200-5 Mcg 8.8 Gm Inhaler) 0 puff IH BID [facility] Last Admin: 12/20/20 08:17 Dose: 2 puff Documented by: Sertraline HCl (Sertraline 50 Mg Tab) 50 mg PO DAILY [facility] Last Admin: 12/20/20 08:08 Dose: 50 mg Documented by: Sodium Chloride (Sodium Chloride 0.9% 10 Ml Syringe) 10 ml FLUSH ASDIRECTED PRN PRN Reason: IV Use Last Admin: 12/20/20 06:05 Dose: 10 ml Documented by: Discontinued Medications Albuterol (Albuterol 0.083% 2.5 Mg/3 Ml Neb Soln) 2.5 mg NEB Q2H PRN PRN Reason: Wheezing Albuterol (Albuterol 6.7 Gm Inhaler) 0 gm INH Q4HR [facility] Albuterol/Ipratropium (Albuterol/Ipratropium 3.0-0.5 Mg/3 Ml Neb Soln) 3 ml NEB Q6HRRT [facility] Last Admin: 12/19/20 08:20 Dose: 3 ml Documented by: Enoxaparin Sodium (Enoxaparin 40 Mg/0.4 Ml Syringe) 40 mg SUBCUT DAILY [facility] Last Admin: 12/19/20 09:17 Dose: 40 mg Documented by: Remdesivir 200 mg/ Sodium (Chloride) 250 mls @ 250 mls/hr IV ONETIME ONE Stop: 12/19/20 02:38 Last Admin: 12/19/20 03:03 Dose: 250 mls/hr Documented by: Sterile Water (Sterile Water For Injection) Confirm Administered Dose 40 mls @ as directed .ROUTE .STK-MED ONE Stop: 12/19/20 02:38 Last Admin: 12/19/20 03:05 Dose: Not Given Documented by: Piperacillin Sod/Tazobactam (Sod 3.375 gm/ Sodium Chloride) 100 mls @ 200 mls/hr IV Q6H [facility] Last Infusion: 12/19/20 09:57 Dose: Infused Documented by: Insulin Human Lispro (Insulin Lispro 100 Units/Ml 3 Ml Vial) 0 unit SUBCUT TIDMEALS [facility]; Protocol Last Admin: 12/19/20 17:11 Dose: 1 units Documented by: Sodium Chloride (Sodium Chloride 0.9% 10 Ml Syringe) 10 ml IV ASDIRECTED PRN PRN Reason: Keep Vein Open Last Admin: 12/19/20 13:56 Dose: 10 ml Documented by: - Exam General: Alert, Oriented HEENT: Pupils Equal, Pupils Reactive, EOMI, Mucous Membr. Moist/[place] Neck: Supple Lungs: Clear to Auscultation, Normal Respiratory Effort Cardiovascular: Regular Rate, Regular Rhythm GI/Abdominal Exam: Normal Bowel Sounds, Soft, Non-Tender, No Organomegaly, No Distention, No Abnormal Bruit, No Mass, Pelvis Stable (Male) Exam: No Hernia, Normal Inspection, Normal Prostate, Circumcised Back Exam: Normal Inspection, Full Range of Motion Extremities: Normal Inspection, Normal Range of Motion, Non-Tender, No Pedal Edema, Normal Capillary Refill Skin: Warm, Dry, Intact Wound/Incisions: Healing Well Neurological: No New Focal Deficit Psy/Mental Status: Alert, Normal Affect, Normal Mood - Patient Data Lab Results Last 24 hrs: Laboratory Results - last 24 hr 12/19/20 12/19/20 12/20/20 Range/Units 17:03 21:15 06:28 POC Glucose 190 H 202 H (70-99) mg/dL ALT 160 H (16-63) U/L 12/20/20 12/20/20 Range/Units 08:05 11:48 POC Glucose 146 H 275 H (70-99) mg/dL ALT (16-63) U/L Result Diagrams: 12/18/20 23:30 12/18/20 23:30 Shine Results Last 24 hrs: Microbiology 12/18/20 23:35 Aerobic Blood Culture - Preliminary Blood - Picc Line NO GROWTH AFTER 1 DAY Anaerobic Blood Culture - Preliminary NO GROWTH AFTER 1 DAY 12/18/20 23:30 Aerobic Blood Culture - Preliminary Blood - Picc Line NO GROWTH AFTER 1 DAY Anaerobic Blood Culture - Final Sepsis Event Note - Evaluation Sepsis Screening Result: No Definite Risk - Focused Exam Vital Signs: Vital Signs Temp Pulse Resp BP BP BP Pulse Ox 12/20/20 11:54 36.4 C 78 20 134/78 90 L 12/20/20 09:41 103/59 L 12/20/20 08:08 122/100 H 12/20/20 08:00 36.9 C 78 20 122/100 H 86 L 12/20/20 04:00 36.1 C 74 19 114/69 83 L - Problem List & Annotations (1) COVID SNOMED Code(s): 294229757 Code(s): U07.1 - COVID-19 Status: Acute Priority: High Current Visit: No Onset Date: ~12/07/20 (2) Hx of cancer of lung SNOMED Code(s): 610950474, 916871105 Code(s): Z85.118 - PERSONAL HISTORY OF MALIGNANT NEOPLASM OF BRONCHUS AND LUNG Status: Acute Priority: Medium Current Visit: No Onset Date: ~12/20/20 (3) Hypoxia SNOMED Code(s): 928832395 Code(s): R09.02 - HYPOXEMIA Status: Acute Priority: High Current Visit: No Onset Date: ~12/20/20 - Problem List Review Problem List Initiated/Reviewed/Updated: Yes - Plan Plan:: 65-year-old male with significant pulmonary comorbidities including bilateral pulmonary neoplasms status post chemotherapy, radiation, immunotherapy and lobectomy who presented with acute hypoxic respiratory failure secondary to COVID-19 pneumonia. Acute hypoxic respiratory failure secondary to COVID-19 pneumonia/ARDS -Noted groundglass opacities in multiple lung elder with positive covid test on 12/09/20 - overall consistent with COVID-19 pneumonia in a background of interstitial fibrosis likely secondary to patient's recent lung cancer treatments, right upper lobe mass also noted on CT scan with patient's known non-small cell lung cancer -Patient is requiring initially nonrebreather and now high flow nasal cannula, current FiO2 is 80% - PA FiO2 ratio less than 100, patient meets criteria for severe ARDS - continuous pulse oximetry, telemetry monitoring -We will initiate treatment dexamethasone 6 mg daily for 10 days of treatment, remdesivir 200 mg initial with 100 mg daily - daily ALT level while on remdesivir - d/c if ALT >5x upper limit of normal -discussed the benefits and risks of remdesivir treatment patient was agreeable -Scheduled DuoNeb, albuterol nebulizer as needed -Self proning as tolerated -Zosyn for any superimposed bacterial pneumonia concerns -Overall patient is significantly poor prognosis, had prolonged discussion about CODE STATUS -at this point patient wishes to be full code despite the low chance of survival given his non-small cell lung cancer, history of lobectomy and severe ARDS secondary to COVID-19 pneumonia Diabetes mellituswell controlled on Metformin, hold Metformin, twice daily glucose checks for now, may need setting scale insulin given likely hyperg lycemia with steroid administration Hypertensioncontinue losartan as studies have shown ours to be potentially beneficial Anxiety/depressioncontinue sertraline, ordered 0.5 mg Ativan every 8 hour for anxiety due to dyspnea Fluidsnone Electrolyteswithin normal lites Dietn.p.o. for now given respiratory status DVT prophylaxis Lovenox. 12/20/20 afebrile/vss on high flow 80% down to 7 liter flow // tolerating prone . desats hard when walking to b.r. no chest pain . slept fair. appetite poor. i/os normal voiding patterns. lab reviewed p.e. lungs decreased throughout but clear. no ronchii or rales. abd benign cor rrr 110 /sats 92-96% at rest . no edema feet well perfused . assess. covid syndrome on high flow 80 to 75 /o2 o2 .6.. day 13 by symptoms count . cont current support and wean as tolerated. b.s tolerable. boh
[2020-12-20] MEDS ORDERED: Albuterol 6.7 GM Inhaler INH SCH (14:00)
[2020-12-20 15:22] LABS: ANION GAP 12.3 mEq/L (7-13); CHLORIDE,CL 105 mmol/L (98-107); SODIUM,NA 142 mmol/L (136-145)
[2020-12-21] MEDS: Piperacillin/Tazobactam 3.375 GM in Sodium Chloride 0.9% 100 ML IV SCH ×4 (00:52→17:16)
[2020-12-21 06:47] LABS: CHLORIDE,CL 104 mmol/L (98-107); SODIUM,NA 142 mmol/L (136-145)
[2020-12-21] MEDS: REMDESIVIR 100 MG in Sodium Chloride 0.9% 100 ML IV SCH (08:13)
[2020-12-21] MEDS: Insulin Lispro 100 Units/ML 3 ML Vial SUBCUT SCH ×4 (08:14→21:04)
[2020-12-21] MEDS: Dexamethasone 4 MG/ML SDV IVPUSH SCH (08:15)
[2020-12-21] MEDS: Losartan 50 MG Tab PO SCH (08:26)
[2020-12-21] MEDS: Sertraline 50 MG Tab PO SCH (08:26)
[2020-12-21] MEDS: Enoxaparin 40 MG/0.4 ML Syringe SUBCUT SCH (08:27)
[2020-12-21] MEDS: Acetaminophen 325 MG Tab PO PRN (08:27)
[2020-12-21] MEDS: Formoterol/Mometasone 200-5 MCG 8.8 GM Inhaler IH SCH ×2 (08:28→21:05)
--- NOTE | 2020-12-21 12:24 | PCM.PN ---
- General Info Date of Service: 12/21/20 Admission Dx/Problem (Free Text): Admission Diagnosis/Problem Admission Diagnosis/Problem Hypoxia Subjective Update: 12/20/20 afebrile/vss on high flow 80% down to 7 liter flow // tolerating prone . desats hard when walking to b.r. no chest pain . slept fair. appetite poor. i/os normal voiding patterns. lab reviewed p.e. lungs decreased throughout but clear. no ronchii or rales. abd benign cor rrr 110 /sats 92-96% at rest . no edema feet well perfused . assess. covid syndrome on high flow 80 to 75 /o2 o2 .6.. day 13 by symptoms count . cont current support and wean as tolerated. b.s tolerable. boh 12/21/20 afebrile vss o2 at 70% with 30 liters flow rate. slept fair . mild chest discomfort now better(with deep breathes being easier)/ cough mild.no pleuritic or cardiac pain. appetite poor. b.s stable taking glucerna. day 2 remdesivier.// steriods // high flow o2// hhn. p.e. bs better with better air exchange.no ronchii or rales. decreased rt posterior lobe (lobectomy) resting rr 20 cor:rrr 100-110 no murmur s3/s4 abd benign m.s benign. neuro:more alert and interactive.[id number] assess:plan 1// covid day 12 or 13 ding better turning corner slowly // day 2 re mdkelseyvier and hgih flow o2 day 5 . anticipate weaning today and over next few days. 2// p.e. prophylaxis started oral xaralto sec to high d dimer. no signs of organ failure or cv compromise,euvolemic 3// anorexia slowly resolving. 4// dm stable. 5// lung cancer and pneumonia day 5 ? repeat xray or cont emperic treatment for few more days and dc . 6// home going possible over weekend or early next week . boh Functional Status: Reports: Pain Controlled - Review of Systems General: Reports: No Symptoms, Weakness, Fatigue Pulmonary: Reports: Shortness of Breath, Cough Cardiovascular: Reports: No Symptoms Gastrointestinal: Reports: No Symptoms, Decreased Appetite Genitourinary: Reports: No Symptoms Musculoskeletal: Reports: No Symptoms Skin: Reports: No Symptoms Neurological: Reports: No Symptoms Psychiatric: Reports: No Symptoms - Patient Data Vitals - Most Recent: Last Vital Signs Temp 37.1 C 12/21/20 08:00 Pulse 101 H 12/21/20 08:00 Resp 20 12/21/20 08:00 BP 112/78 12/21/20 08:26 Pulse Ox 90 L 12/21/20 08:00 Weight - Most Recent: 82.463 kg I&O - Last 24 Hours: Intake & Output 12/20/20 12/21/20 12/21/20 22:59 06:59 14:59 Intake Total 460 200 300 Balance 460 200 300 Lab Results Last 24 Hours: Laboratory Results - last 24 hr 12/20/20 12/20/20 12/20/20 Range/Units 06:28 06:28 06:28 WBC 4.2 L (5.0-10.0) 10^3/uL RBC 5.01 (4.6-6.2) 10^6/uL Hgb 13.1 L (14.0-18.0) g/dL Hct 40.4 (40.0-54.0) % MCV 80.6 (80-100) fL MCH 26.1 L (27.0-34.0) pg MCHC 32.4 L (33.0-35.0) g/dL Plt Count 144 L (150-450) 10^3/uL Neut % (Auto) 83.2 H (42.2-75.2) % Lymph % (Auto) 6.4 L (20.5-50.1) % Swisher % (Auto) 10.2 H (2-8) % Eos % (Auto) 0.2 L (1.0-3.0) % Baso % (Auto) 0.0 (0.0-1.0) % Add Manual Diff Yes Neutrophils % (Manual) 81 H (42-75) % Band Neutrophils % 4 % Lymphocytes % (Manual) 8 L (20-50) % Monocytes % (Manual) 7 (2-8) % Toxic Granulation 1+ slight ESR 25 H (0-15) mm/hr D-Dimer, Quantitative (0-400) ng/mL Sodium 142 D (136-145) mmol/L Potassium 4.3 (3.5-5.1) mmol/L Chloride 105 (98-107) mmol/L Carbon Dioxide 29 (21-32) mmol/L Anion Gap 12.3 (7-13) mEq/L BUN 21 H (7-18) mg/dL Creatinine 1.02 (0.70-1.30) mg/dL Est Cr Clr Drug Dosing 70.78 mL/min Estimated GFR (MDRD) > 60 BUN/Creatinine Ratio 20.6 (No establ ref range) Glucose 161 H (70-99) mg/dL POC Glucose (70-99) mg/dL Calcium 8.7 (8.5-10.1) mg/dL Total Bilirubin 0.4 (0.2-1.0) mg/dL AST 63 H (15-37) U/L ALT 166 H (16-63) U/L Alkaline Phosphatase 75 (46-116) U/L C-Reactive Protein 1.4 H (0.0-0.9) mg/dL Total Protein 6.5 (6.4-8.2) g/dL Albumin 2.7 L (3.4-5.0) g/dL Globulin 3.8 Albumin/Globulin Ratio 0.71 12/20/20 12/20/20 12/20/20 Range/Units 06:28 11:48 17:08 WBC (5.0-10.0) 10^3/uL RBC (4.6-6.2) 10^6/uL Hgb (14.0-18.0) g/dL Hct (40.0-54.0) % MCV (80-100) fL MCH (27.0-34.0) pg MCHC (33.0-35.0) g/dL Plt Count (150-450) 10^3/uL Neut % (Auto) (42.2-75.2) % Lymph % (Auto) (20.5-50.1) % Swisher % (Auto) (2-8) % Eos % (Auto) (1.0-3.0) % Baso % (Auto) (0.0-1.0) % Add Manual Diff Neutrophils % (Manual) (42-75) % Band Neutrophils % % Lymphocytes % (Manual) (20-50) % Monocytes % (Manual) (2-8) % Toxic Granulation ESR (0-15) mm/hr D-Dimer, Quantitative 349 (0-400) ng/mL Sodium (136-145) mmol/L Potassium (3.5-5.1) mmol/L Chloride (98-107) mmol/L Carbon Dioxide (21-32) mmol/L Anion Gap (7-13) mEq/L BUN (7-18) mg/dL Creatinine (0.70-1.30) mg/dL Est Cr Clr Drug Dosing mL/min Estimated GFR (MDRD) BUN/Creatinine Ratio (No establ ref range) Glucose (70-99) mg/dL POC Glucose 275 H 239 H (70-99) mg/dL Calcium (8.5-10.1) mg/dL Total Bilirubin (0.2-1.0) mg/dL AST (15-37) U/L ALT (16-63) U/L Alkaline Phosphatase (46-116) U/L C-Reactive Protein (0.0-0.9) mg/dL Total Protein (6.4-8.2) g/dL Albumin (3.4-5.0) g/dL Globulin Albumin/Globulin Ratio 12/20/20 12/21/20 12/21/20 Range/Units 21:04 06:17 06:17 WBC 5.9 (5.0-10.0) 10^3/uL RBC 4.94 (4.6-6.2) 10^6/uL Hgb 12.8 L (14.0-18.0) g/dL Hct 39.6 L (40.0-54.0) % MCV 80.2 (80-100) fL MCH 25.9 L (27.0-34.0) pg MCHC 32.3 L (33.0-35.0) g/dL Plt Count 151 (150-450) 10^3/uL Neut % (Auto) 85.8 H (42.2-75.2) % Lymph % (Auto) 6.6 L (20.5-50.1) % Swisher % (Auto) 6.9 (2-8) % Eos % (Auto) 0.5 L (1.0-3.0) % Baso % (Auto) 0.2 (0.0-1.0) % Add Manual Diff Neutrophils % (Manual) (42-75) % Band Neutrophils % % Lymphocytes % (Manual) (20-50) % Monocytes % (Manual) (2-8) % Toxic Granulation ESR 23 H (0-15) mm/hr D-Dimer, Quantitative 437 H (0-400) ng/mL Sodium (136-145) mmol/L Potassium (3.5-5.1) mmol/L Chloride (98-107) mmol/L Carbon Dioxide (21-32) mmol/L Anion Gap (7-13) mEq/L BUN (7-18) mg/dL Creatinine (0.70-1.30) mg/dL Est Cr Clr Drug Dosing mL/min Estimated GFR (MDRD) BUN/Creatinine Ratio (No establ ref range) Glucose (70-99) mg/dL POC Glucose 202 H (70-99) mg/dL Calcium (8.5-10.1) mg/dL Total Bilirubin (0.2-1.0) mg/dL AST (15-37) U/L ALT (16-63) U/L Alkaline Phosphatase (46-116) U/L C-Reactive Protein (0.0-0.9) mg/dL Total Protein (6.4-8.2) g/dL Albumin (3.4-5.0) g/dL Globulin Albumin/Globulin Ratio 12/21/20 12/21/20 Range/Units 06:17 08:07 WBC (5.0-10.0) 10^3/uL RBC (4.6-6.2) 10^6/uL Hgb (14.0-18.0) g/dL Hct (40.0-54.0) % MCV (80-100) fL MCH (27.0-34.0) pg MCHC (33.0-35.0) g/dL Plt Count (150-450) 10^3/uL Neut % (Auto) (42.2-75.2) % Lymph % (Auto) (20.5-50.1) % Swisher % (Auto) (2-8) % Eos % (Auto) (1.0-3.0) % Baso % (Auto) (0.0-1.0) % Add Manual Diff Neutrophils % (Manual) (42-75) % Band Neutrophils % % Lymphocytes % (Manual) (20-50) % Monocytes % (Manual) (2-8) % Toxic Granulation ESR (0-15) mm/hr D-Dimer, Quantitative (0-400) ng/mL Sodium 142 (136-145) mmol/L Potassium 4.0 (3.5-5.1) mmol/L Chloride 104 (98-107) mmol/L Carbon Dioxide 33 H (21-32) mmol/L Anion Gap 9.0 (7-13) mEq/L BUN 24 H (7-18) mg/dL Creatinine 0.99 (0.70-1.30) mg/dL Est Cr Clr Drug Dosing 72.93 mL/min Estimated GFR (MDRD) > 60 BUN/Creatinine Ratio 24.2 (No establ ref range) Glucose 118 H (70-99) mg/dL POC Glucose 118 H (70-99) mg/dL Calcium 8.3 L (8.5-10.1) mg/dL Total Bilirubin 0.4 (0.2-1.0) mg/dL AST 47 H (15-37) U/L ALT 140 H (16-63) U/L Alkaline Phosphatase 71 (46-116) U/L C-Reactive Protein 1.1 H (0.0-0.9) mg/dL Total Protein 6.2 L (6.4-8.2) g/dL Albumin 2.5 L (3.4-5.0) g/dL Globulin 3.7 Albumin/Globulin Ratio 0.68 Shine Results Last 24 Hours: Microbiology 12/18/20 23:35 Aerobic Blood Culture - Preliminary Blood - Picc Line NO GROWTH AFTER 2 DAYS Anaerobic Blood Culture - Preliminary NO GROWTH AFTER 2 DAYS 12/18/20 23:30 Aerobic Blood Culture - Preliminary Blood - Picc Line NO GROWTH AFTER 2 DAYS Anaerobic Blood Culture - Final Med Orders - Current: Current Medications Acetaminophen (Acetaminophen 325 Mg Tab) 650 mg PO Q4H PRN PRN Reason: Pain (Mild 1-3)/fever Last Admin: 12/21/20 08:27 Dose: 650 mg Documented by: Albuterol (Albuterol 6.7 Gm Inhaler) 6.7 gm INH Q4H PRN PRN Reason: Shortness of Breath Dexamethasone (Dexamethasone 4 Mg/Ml Sdv) 6 mg IVPUSH DAILY [facility] Stop: 12/27/20 09:01 Last Admin: 12/21/20 08:15 Dose: 6 mg Documented by: Dextrose/Water (50% Dextrose In Water 50 Ml Syringe) 50 ml IVPUSH Q15M PRN PRN Reason: Hypoglycemia Glucagon (Glucagon,Human Recombinant 1 Mg Vial) 1 mg IM Q15M PRN PRN Reason: Hypoglycemia Remdesivir 100 mg/ Sodium (Chloride) 100 mls @ 100 mls/hr IV Q24H [facility] Stop: 12/23/20 09:59 Last Admin: 12/21/20 08:13 Dose: 100 mls/hr Documented by: Piperacillin Sod/Tazobactam (Sod 3.375 gm/ Sodium Chloride) 100 mls @ 200 mls/hr IV Q6HR [facility] Last Admin: 12/21/20 06:39 Dose: 200 mls/hr Documented by: Insulin Human Lispro (Insulin Lispro 100 Units/Ml 3 Ml Vial) 0 unit SUBCUT WITHMEALSANDBED [facility]; Protocol Last Admin: 12/21/20 08:14 Dose: Not Given Documented by: Lorazepam (Lorazepam 0.5 Mg Tab) 0.5 mg PO Q8H PRN PRN Reason: Anxiety Last Admin: 12/20/20 21:21 Dose: 0.5 mg Documented by: Losartan Potassium (Losartan 50 Mg Tab) 25 mg PO DAILY [facility] Last Admin: 12/21/20 08:26 Dose: 25 mg Documented by: Mometasone Furoate/Formoterol Fumar (Formoterol/Mometasone 200-5 Mcg 8.8 Gm Inhaler) 0 puff IH BID [facility] Last Admin: 12/21/20 08:28 Dose: 2 puff Documented by: [facility]aroxaban ([facility] 10 Mg Tab) [facility] Sertraline HCl (Sertraline 50 Mg Tab) 50 mg PO DAILY [facility] Last Admin: 12/21/20 08:26 Dose: 50 mg Documented by: Sodium Chloride (Sodium Chloride 0.9% 10 Ml Syringe) 10 ml FLUSH ASDIRECTED PRN PRN Reason: IV Use Last Admin: 12/20/20 06:05 Dose: 10 ml Documented by: Discontinued Medications Albuterol (Albuterol 0.083% 2.5 Mg/3 Ml Neb Soln) 2.5 mg NEB Q2H PRN PRN Reason: Wheezing Albuterol (Albuterol 6.7 Gm Inhaler) 0 gm INH Q4HR [facility] Albuterol/Ipratropium (Albuterol/Ipratropium 3.0-0.5 Mg/3 Ml Neb Soln) 3 ml NEB Q6HRRT [facility] Last Admin: 12/19/20 08:20 Dose: 3 ml Documented by: Enoxaparin Sodium (Enoxaparin 40 Mg/0.4 Ml Syringe) 40 mg SUBCUT DAILY [facility] Last Admin: 12/19/20 09:17 Dose: 40 mg Documented by: Enoxaparin Sodium (Enoxaparin 40 Mg/0.4 Ml Syringe) 40 mg SUBCUT Q12HR [facility] Last Admin: 12/21/20 08:27 Dose: 40 mg Documented by: Remdesivir 200 mg/ Sodium (Chloride) 250 mls @ 250 mls/hr IV ONETIME ONE Stop: 12/19/20 02:38 Last Admin: 12/19/20 03:03 Dose: 250 mls/hr Documented by: Sterile Water (Sterile Water For Injection) Confirm Administered Dose 40 mls @ as directed .ROUTE .STK-MED ONE Stop: 12/19/20 02:38 Last Admin: 12/19/20 03:05 Dose: Not Given Documented by: Piperacillin Sod/Tazobactam (Sod 3.375 gm/ Sodium Chloride) 100 mls @ 200 mls/hr IV Q6H [facility] Last Infusion: 12/19/20 09:57 Dose: Infused Documented by: Insulin Human Lispro (Insulin Lispro 100 Units/Ml 3 Ml Vial) 0 unit SUBCUT TIDMEALS [facility]; Protocol Last Admin: 12/19/20 17:11 Dose: 1 units Documented by: Sodium Chloride (Sodium Chloride 0.9% 10 Ml Syringe) 10 ml IV ASDIRECTED PRN PRN Reason: Keep Vein Open Last Admin: 12/19/20 13:56 Dose: 10 ml Documented by: - Exam Quality Assessment: Supplemental Oxygen General: Alert, Oriented HEENT: Pupils Equal, Pupils Reactive, EOMI, Mucous Membr. Moist/Gore Neck: Supple Lungs: Clear to Auscultation, Normal Respiratory Effort, Decreased Breath Sounds Cardiovascular: Regular Rate, Regular Rhythm GI/Abdominal Exam: Normal Bowel Sounds, Soft, Non-Tender, No Organomegaly, No Distention, No Abnormal Bruit, No Mass, Pelvis Stable (Male) Exam: No Hernia, Normal Inspection, Normal Prostate, Circumcised Back Exam: Normal Inspection, Full Range of Motion Extremities: Normal Inspection, Normal Range of Motion, Non-Tender, No Pedal Edema, Normal Capillary Refill Skin: Warm, Dry, Intact Wound/Incisions: Healing Well Neurological: No New Focal Deficit Psy/Mental Status: Alert, Normal Affect, Normal Mood - Patient Data Lab Results Last 24 hrs: Laboratory Results - last 24 hr 12/20/20 12/20/20 12/20/20 Range/Units 06:28 06:28 06:28 WBC 4.2 L (5.0-10.0) 10^3/uL RBC 5.01 (4.6-6.2) 10^6/uL Hgb 13.1 L (14.0-18.0) g/dL Hct 40.4 (40.0-54.0) % MCV 80.6 (80-100) fL MCH 26.1 L (27.0-34.0) pg MCHC 32.4 L (33.0-35.0) g/dL Plt Count 144 L (150-450) 10^3/uL Neut % (Auto) 83.2 H (42.2-75.2) % Lymph % (Auto) 6.4 L (20.5-50.1) % Swisher % (Auto) 10.2 H (2-8) % Eos % (Auto) 0.2 L (1.0-3.0) % Baso % (Auto) 0.0 (0.0-1.0) % Add Manual Diff Yes Neutrophils % (Manual) 81 H (42-75) % Band Neutrophils % 4 % Lymphocytes % (Manual) 8 L (20-50) % Monocytes % (Manual) 7 (2-8) % Toxic Granulation 1+ slight ESR 25 H (0-15) mm/hr D-Dimer, Quantitative (0-400) ng/mL Sodium 142 D (136-145) mmol/L Potassium 4.3 (3.5-5.1) mmol/L Chloride 105 (98-107) mmol/L Carbon Dioxide 29 (21-32) mmol/L Anion Gap 12.3 (7-13) mEq/L BUN 21 H (7-18) mg/dL Creatinine 1.02 (0.70-1.30) mg/dL Est Cr Clr Drug Dosing 70.78 mL/min Estimated GFR (MDRD) > 60 BUN/Creatinine Ratio 20.6 (No establ ref range) Glucose 161 H (70-99) mg/dL POC Glucose (70-99) mg/dL Calcium 8.7 (8.5-10.1) mg/dL Total Bilirubin 0.4 (0.2-1.0) mg/dL AST 63 H (15-37) U/L ALT 166 H (16-63) U/L Alkaline Phosphatase 75 (46-116) U/L C-Reactive Protein 1.4 H (0.0-0.9) mg/dL Total Protein 6.5 (6.4-8.2) g/dL Albumin 2.7 L (3.4-5.0) g/dL Globulin 3.8 Albumin/Globulin Ratio 0.71 12/20/20 12/20/20 12/20/20 Range/Units 06:28 11:48 17:08 WBC (5.0-10.0) 10^3/uL RBC (4.6-6.2) 10^6/uL Hgb (14.0-18.0) g/dL Hct (40.0-54.0) % MCV (80-100) fL MCH (27.0-34.0) pg MCHC (33.0-35.0) g/dL Plt Count (150-450) 10^3/uL Neut % (Auto) (42.2-75.2) % Lymph % (Auto) (20.5-50.1) % Swisher % (Auto) (2-8) % Eos % (Auto) (1.0-3.0) % Baso % (Auto) (0.0-1.0) % Add Manual Diff Neutrophils % (Manual) (42-75) % Band Neutrophils % % Lymphocytes % (Manual) (20-50) % Monocytes % (Manual) (2-8) % Toxic Granulation ESR (0-15) mm/hr D-Dimer, Quantitative 349 (0-400) ng/mL Sodium (136-145) mmol/L Potassium (3.5-5.1) mmol/L Chloride (98-107) mmol/L Carbon Dioxide (21-32) mmol/L Anion Gap (7-13) mEq/L BUN (7-18) mg/dL Creatinine (0.70-1.30) mg/dL Est Cr Clr Drug Dosing mL/min Estimated GFR (MDRD) BUN/Creatinine Ratio (No establ ref range) Glucose (70-99) mg/dL POC Glucose 275 H 239 H (70-99) mg/dL Calcium (8.5-10.1) mg/dL Total Bilirubin (0.2-1.0) mg/dL AST (15-37) U/L ALT (16-63) U/L Alkaline Phosphatase (46-116) U/L C-Reactive Protein (0.0-0.9) mg/dL Total Protein (6.4-8.2) g/dL Albumin (3.4-5.0) g/dL Globulin Albumin/Globulin Ratio 12/20/20 12/21/20 12/21/20 Range/Units 21:04 06:17 06:17 WBC 5.9 (5.0-10.0) 10^3/uL RBC 4.94 (4.6-6.2) 10^6/uL Hgb 12.8 L (14.0-18.0) g/dL Hct 39.6 L (40.0-54.0) % MCV 80.2 (80-100) fL MCH 25.9 L (27.0-34.0) pg MCHC 32.3 L (33.0-35.0) g/dL Plt Count 151 (150-450) 10^3/uL Neut % (Auto) 85.8 H (42.2-75.2) % Lymph % (Auto) 6.6 L (20.5-50.1) % Swisher % (Auto) 6.9 (2-8) % Eos % (Auto) 0.5 L (1.0-3.0) % Baso % (Auto) 0.2 (0.0-1.0) % Add Manual Diff Neutrophils % (Manual) (42-75) % Band Neutrophils % % Lymphocytes % (Manual) (20-50) % Monocytes % (Manual) (2-8) % Toxic Granulation ESR 23 H (0-15) mm/hr D-Dimer, Quantitative 437 H (0-400) ng/mL Sodium (136-145) mmol/L Potassium (3.5-5.1) mmol/L Chloride (98-107) mmol/L Carbon Dioxide (21-32) mmol/L Anion Gap (7-13) mEq/L BUN (7-18) mg/dL Creatinine (0.70-1.30) mg/dL Est Cr Clr Drug Dosing mL/min Estimated GFR (MDRD) BUN/Creatinine Ratio (No establ ref range) Glucose (70-99) mg/dL POC Glucose 202 H (70-99) mg/dL Calcium (8.5-10.1) mg/dL Total Bilirubin (0.2-1.0) mg/dL AST (15-37) U/L ALT (16-63) U/L Alkaline Phosphatase (46-116) U/L C-Reactive Protein (0.0-0.9) mg/dL Total Protein (6.4-8.2) g/dL Albumin (3.4-5.0) g/dL Globulin Albumin/Globulin Ratio 12/21/20 12/21/20 Range/Units 06:17 08:07 WBC (5.0-10.0) 10^3/uL RBC (4.6-6.2) 10^6/uL Hgb (14.0-18.0) g/dL Hct (40.0-54.0) % MCV (80-100) fL MCH (27.0-34.0) pg MCHC (33.0-35.0) g/dL Plt Count (150-450) 10^3/uL Neut % (Auto) (42.2-75.2) % Lymph % (Auto) (20.5-50.1) % Swisher % (Auto) (2-8) % Eos % (Auto) (1.0-3.0) % Baso % (Auto) (0.0-1.0) % Add Manual Diff Neutrophils % (Manual) (42-75) % Band Neutrophils % % Lymphocytes % (Manual) (20-50) % Monocytes % (Manual) (2-8) % Toxic Granulation ESR (0-15) mm/hr D-Dimer, Quantitative (0-400) ng/mL Sodium 142 (136-145) mmol/L Potassium 4.0 (3.5-5.1) mmol/L Chloride 104 (98-107) mmol/L Carbon Dioxide 33 H (21-32) mmol/L Anion Gap 9.0 (7-13) mEq/L BUN 24 H (7-18) mg/dL Creatinine 0.99 (0.70-1.30) mg/dL Est Cr Clr Drug Dosing 72.93 mL/min Estimated GFR (MDRD) > 60 BUN/Creatinine Ratio 24.2 (No establ ref range) Glucose 118 H (70-99) mg/dL POC Glucose 118 H (70-99) mg/dL Calcium 8.3 L (8.5-10.1) mg/dL Total Bilirubin 0.4 (0.2-1.0) mg/dL AST 47 H (15-37) U/L ALT 140 H (16-63) U/L Alkaline Phosphatase 71 (46-116) U/L C-Reactive Protein 1.1 H (0.0-0.9) mg/dL Total Protein 6.2 L (6.4-8.2) g/dL Albumin 2.5 L (3.4-5.0) g/dL Globulin 3.7 Albumin/Globulin Ratio 0.68 Result Diagrams: 12/21/20 06:17 12/21/20 06:17 Shine Results Last 24 hrs: Microbiology 12/18/20 23:35 Aerobic Blood Culture - Preliminary Blood - Picc Line NO GROWTH AFTER 2 DAYS Anaerobic Blood Culture - Preliminary NO GROWTH AFTER 2 DAYS 12/18/20 23:30 Aerobic Blood Culture - Preliminary Blood - Picc Line NO GROWTH AFTER 2 DAYS Anaerobic Blood Culture - Final Sepsis Event Note - Evaluation Sepsis Screening Result: No Definite Risk - Focused Exam Vital Signs: Vital Signs Temp Pulse Resp BP BP BP Pulse Ox 12/21/20 08:26 112/78 12/21/20 08:00 37.1 C 101 H 20 112/87 90 L 12/21/20 04:00 36.4 C 70 20 133/69 92 L 12/21/20 01:00 Pulse Ox 12/21/20 08:26 12/21/20 08:00 12/21/20 04:00 12/21/20 01:00 90 L - Problem List & Annotations (1) COVID SNOMED Code(s): 562133137 Code(s): U07.1 - COVID-19 Status: Acute Priority: Medium Current Visit: No Onset Date: ~12/07/20 Annotation/Comment:: better see note. (2) Hx of cancer of lung SNOMED Code(s): 132871306, 539463497 Code(s): Z85.118 - PERSONAL HISTORY OF MALIGNANT NEOPLASM OF BRONCHUS AND LUNG Status: Acute Priority: Medium Current Visit: No Onset Date: ~12/20/20 Annotation/Comment:: emperic antibiotics cefapime and suspect good response clinically so will anticipate. (3) Hypoxia SNOMED Code(s): 266993984 Code(s): R09.02 - HYPOXEMIA Status: Acute Priority: Medium Current Visit: No Onset Date: ~12/20/20 Annotation/Comment:: improving 72% and flow rate 30 liters and weaning todayas tolerated. emperic treatment of elavated d dimer given hx of cancer and no available pulm angiogram. didmier 370 to 440 again this am so appears related to inflamitory response. no clinical symptoms of p.e but high risk. monitoring d dimer /hgn a nd platelets daily . (4) Thrombocytopenia SNOMED Code(s): 703660444 Code(s): D69.6 - THROMBOCYTOPENIA, UNSPECIFIED Status: Acute Priority: Medium Current Visit: Yes Onset Date: ~12/19/20 Annotation/Comment:: consumption plus hx of chronic thombocytopenia related to chemo and rad suspected. - Problem List Review Problem List Initiated/Reviewed/Updated: Yes - My Orders Last 24 Hours: My Active Orders 12/20/20 14:26 Antiembolic Devices [RC] PER UNIT ROUTINE SCD [Sequential Compression Device] [OM.PC] Routine 12/21/20 18:00 Rivaroxaban [Xarelto] 10 mg PO WITHDINNER - Plan Plan:: 65-year-old male with significant pulmonary comorbidities including bilateral pulmonary neoplasms status post chemotherapy, radiation, immunotherapy and lob ectomy who presented with acute hypoxic respiratory failure secondary to COVID- 19 pneumonia. Acute hypoxic respiratory failure secondary to COVID-19 pneumonia/ARDS -Noted groundglass opacities in multiple lung elder with positive covid test on 12/09/20 - overall consistent with COVID-19 pneumonia in a background of interstitial fibrosis likely secondary to patient's recent lung cancer treatments, right upper lobe mass also noted on CT scan with patient's known non-small cell lung cancer -Patient is requiring initially nonrebreather and now high flow nasal cannula, current FiO2 is 80% - PA FiO2 ratio less than 100, patient meets criteria for severe ARDS - continuous pulse oximetry, telemetry monitoring -We will initiate treatment dexamethasone 6 mg daily for 10 days of treatment, remdesivir 200 mg initial with 100 mg daily - daily ALT level while on remdesivir - d/c if ALT >5x upper limit of normal -discussed the benefits and risks of remdesivir treatment patient was agreeable -Scheduled DuoNeb, albuterol nebulizer as needed -Self proning as tolerated -Zosyn for any superimposed bacterial pneumonia concerns -Overall patient is significantly poor prognosis, had prolonged discussion about CODE STATUS -at this point patient wishes to be full code despite the low chance of survival given his non-small cell lung cancer, history of lobectomy and severe ARDS secondary to COVID-19 pneumonia Diabetes mellituswell controlled on Metformin, hold Metformin, twice daily glucose checks for now, may need setting scale insulin given likely hyperglycemia with steroid administration Hypertensioncontinue losartan as studies have shown ours to be potentially beneficial Anxiety/depressioncontinue sertraline, ordered 0.5 mg Ativan every 8 hour for anxiety due to dyspnea Fluidsnone Electrolyteswithin normal lites Dietn.p.o. for now given respiratory status DVT prophylaxis Lovenox. 12/20/20 afebrile/vss on high flow 80% down to 7 liter flow // tolerating prone . desats hard when walking to b.r. no chest pain . slept fair. appetite poor. i/os normal voiding patterns. lab reviewed p.e. lungs decreased throughout but clear. no ronchii or rales. abd benign cor rrr 110 /sats 92-96% at rest . no edema feet well perfused . assess. covid syndrome on high flow 80 to 75 /o2 o2 .6.. day 13 by symptoms count . cont current support and wean as tolerated. b.s tolerable. boh 12/21/20 afebrile vss o2 at 70% with 30 liters flow rate. slept fair . mild chest discomfort now better(with deep breathes being easier)/ cough mild.no pleuritic or cardiac pain. appetite poor. b.s stable taking glucerna. day 2 remdesivier.// steriods // high flow o2// hhn. p.e. bs better with better air exchange.no ronchii or rales. decreased rt posterior lobe (lobectomy) resting rr 20 cor:rrr 100-110 no murmur s3/s4 abd benign m.s benign. neuro:more alert and interactive.aox4 assess:plan 1// covid day 12 or 13 ding better turning corner slowly // day 2 remdesivier and hgih flow o2 day 5 . anticipate weaning today and over next few days. 2// p.e. prophylaxis started oral xaralto sec to high d dimer. no signs of organ failure or cv compromise,euvolemic 3// anorexia slowly resolving. 4// dm stable. 5// lung cancer and pneumonia day 5 ? repeat xray or cont emperic treatment for few more days and dc . 6// home going possible over weekend or early next week . boh 12/21/20 afebrile vss o2 at 70% with 30 liters flow rate. slept fair . mild chest discomfort now better(with deep breathes being easier)/ cough mild.no pleuritic or cardiac pain. appetite poor. b.s stable taking glucerna. day 2 remdesivier.// steriods // high flow o2// hhn. p.e. bs better with better air exchange.no ronchii or rales. decreased rt posterior lobe (lobectomy) resting rr 20 cor:rrr 100-110 no murmur s3/s4 abd benign m.s benign. neuro:more alert and interactive.aox4 assess:plan 1// covid day 12 or 13 ding better turning corner slowly // day 2 remdesivier and hgih flow o2 day 5 . anticipate weaning today and over next few days. 2// p.e. prophylaxis started oral xaralto sec to high d dimer. no signs of organ failure or cv compromise,euvolemic 3// anorexia slowly resolving. 4// dm stable. 5// lung cancer and pneumonia day 5 ? repeat xray or cont emperic treatment for few more days and dc . 6// home going possible over weekend or early next week . boh
[2020-12-21] MEDS: Rivaroxaban 10 MG Tab PO SCH (17:17)
[2020-12-21] MEDS: LORazepam 0.5 MG Tab PO PRN (21:00)
[2020-12-22] MEDS: Piperacillin/Tazobactam 3.375 GM in Sodium Chloride 0.9% 100 ML IV SCH ×5 (05:35→17:46)
[2020-12-22] MEDS: Losartan 50 MG Tab PO SCH (09:44)
[2020-12-22] MEDS: Sertraline 50 MG Tab PO SCH (09:44)
[2020-12-22] MEDS: Formoterol/Mometasone 200-5 MCG 8.8 GM Inhaler IH SCH ×2 (09:45→21:07)
[2020-12-22] MEDS: Dexamethasone 4 MG/ML SDV IVPUSH SCH (09:46)
[2020-12-22] MEDS: REMDESIVIR 100 MG in Sodium Chloride 0.9% 100 ML IV SCH (09:47)
[2020-12-22] MEDS: Sodium Chloride 0.9% 10 ML Syringe FLUSH PRN ×4 (09:47→13:12)
[2020-12-22] MEDS: Acetaminophen 325 MG Tab PO PRN (09:49)
[2020-12-22] MEDS: Insulin Lispro 100 Units/ML 3 ML Vial SUBCUT SCH ×4 (09:55→21:06)
--- NOTE | 2020-12-22 10:27 | PCM.PN ---
- General Info Date of Service: 12/22/20 Admission Dx/Problem (Free Text): Admission Diagnosis/Problem Admission Diagnosis/Problem Hypoxia Subjective Update: 12/22/20 afebrile good night /slept fair.desats to mid 80S and o2 increased to 80% and 30 liters air flow. feels comfortable and sitting in chair.sats 94% hr100// rr 20 eating better// no n/v .voiding well . no pain really . p.e. lungs decreased slightly rt base and fair otherwise. no rales or ronchii no increased wob cor rrr without murmur / no chest wall pain . abd benign neuro aox 4 and good awareness/[place] easily . lab lfts remain elevated but stable. day 3 remdesivir/ day 3 zosyn// day 3 high flow o2 with nebs. assess: 1// covid stable but not weaning yesterday and again looks and feels better but slowly improving . cont . current treatments . o2 at 30 liters flow and 80 %fio2. 2//pneumonia: on zosyn and will cont . limit xrays sec to exposure.hgigher risk for sepsis sec to lung ca recurrance ad fibrosis likely will need o2 home therapy sith slow progress during recovery . 3//lung ca no change in status. 4//nutrition : improving appetite. 5// weakness still prominant but starting to improve. tolerates non prone positions better. in chair and comfortable. boh Functional Status: Reports: Pain Controlled - Review of Systems General: Reports: No Symptoms HEENT: Reports: No Symptoms Pulmonary: Reports: No Symptoms, Shortness of Breath Cardiovascular: Reports: No Symptoms Gastrointestinal: Reports: No Symptoms Genitourinary: Reports: No Symptoms Musculoskeletal: Reports: No Symptoms Skin: Reports: No Symptoms Neurological: Reports: No Symptoms Psychiatric: Reports: No Symptoms - Patient Data Vitals - Most Recent: Last Vital Signs Temp 36.3 C 12/22/20 08:00 Pulse 92 12/22/20 08:00 Resp 20 12/22/20 08:00 BP 129/80 12/22/20 09:44 Pulse Ox 95 12/22/20 08:00 Weight - Most Recent: 82.463 kg I&O - Last 24 Hours: Intake & Output 12/21/20 12/22/20 12/22/20 22:59 06:59 14:59 Intake Total 440 0 Balance 440 0 Lab Results Last 24 Hours: Laboratory Results - last 24 hr 12/21/20 12/21/20 12/21/20 Range/Units 12:10 17:13 20:58 POC Glucose 324 H 277 H 217 H (70-99) mg/dL 12/22/20 Range/Units 08:00 POC Glucose 129 H (70-99) mg/dL Shine Results Last 24 Hours: Microbiology 12/18/20 23:35 Aerobic Blood Culture - Preliminary Blood - Picc Line NO GROWTH AFTER 3 DAYS Anaerobic Blood Culture - Preliminary NO GROWTH AFTER 3 DAYS 12/18/20 23:30 Aerobic Blood Culture - Preliminary Blood - Picc Line NO GROWTH AFTER 3 DAYS Anaerobic Blood Culture - Final Med Orders - Current: Current Medications Acetaminophen (Acetaminophen 325 Mg Tab) 650 mg PO Q4H PRN PRN Reason: Pain (Mild 1-3)/fever Last Admin: 12/22/20 09:49 Dose: 650 mg Documented by: Albuterol (Albuterol 6.7 Gm Inhaler) 6.7 gm INH Q4H PRN PRN Reason: Shortness of Breath Dexamethasone (Dexamethasone 4 Mg/Ml Sdv) 6 mg IVPUSH DAILY [facility] Stop: 12/27/20 09:01 Last Admin: 12/22/20 09:46 Dose: 6 mg Documented by: Dextrose/Water (50% Dextrose In Water 50 Ml Syringe) 50 ml IVPUSH Q15M PRN PRN Reason: Hypoglycemia Glucagon (Glucagon,Human Recombinant 1 Mg Vial) 1 mg IM Q15M PRN PRN Reason: Hypoglycemia Remdesivir 100 mg/ Sodium (Chloride) 100 mls @ 100 mls/hr IV Q24H [facility] Stop: 12/23/20 09:59 Last Admin: 12/22/20 09:47 Dose: 100 mls/hr Documented by: Piperacillin Sod/Tazobactam (Sod 3.375 gm/ Sodium Chloride) 100 mls @ 200 mls/hr IV Q6HR [facility] Last Admin: 12/22/20 05:35 Dose: 200 mls/hr Documented by: Insulin Human Lispro (Insulin Lispro 100 Units/Ml 3 Ml Vial) 0 unit SUBCUT WITHMEALSANDBED [facility]; Protocol Last Admin: 12/22/20 09:55 Dose: Not Given Documented by: Lorazepam (Lorazepam 0.5 Mg Tab) 0.5 mg PO Q8H PRN PRN Reason: Anxiety Last Admin: 12/21/20 21:00 Dose: 0.5 mg Documented by: Losartan Potassium (Losartan 50 Mg Tab) 25 mg PO DAILY [facility] Last Admin: 12/22/20 09:44 Dose: 25 mg Documented by: Mometasone Furoate/Formoterol Fumar (Formoterol/Mometasone 200-5 Mcg 8.8 Gm Inhaler) 0 puff IH BID [facility] Last Admin: 12/22/20 09:45 Dose: 2 puff Documented by: Rivaroxaban (Rivaroxaban 10 Mg Tab) 10 mg PO WITHDINNER [facility] Last Admin: 12/21/20 17:17 Dose: 10 mg Documented by: Sertraline HCl (Sertraline 50 Mg Tab) 50 mg PO DAILY [facility] Last Admin: 12/22/20 09:44 Dose: 50 mg Documented by: Sodium Chloride (Sodium Chloride 0.9% 10 Ml Syringe) 10 ml FLUSH ASDIRECTED PRN PRN Reason: IV Use Last Admin: 12/22/20 09:47 Dose: 10 ml Documented by: Discontinued Medications Albuterol (Albuterol 0.083% 2.5 Mg/3 Ml Neb Soln) 2.5 mg NEB Q2H PRN PRN Reason: Wheezing Albuterol (Albuterol 6.7 Gm Inhaler) 0 gm INH Q4HR [facility] Albuterol/Ipratropium (Albuterol/Ipratropium 3.0-0.5 Mg/3 Ml Neb Soln) 3 ml NEB Q6HRRT [facility] Last Admin: 12/19/20 08:20 Dose: 3 ml Documented by: Enoxaparin Sodium (Enoxaparin 40 Mg/0.4 Ml Syringe) 40 mg SUBCUT DAILY [facility] Last Admin: 12/19/20 09:17 Dose: 40 mg Documented by: Enoxaparin Sodium (Enoxaparin 40 Mg/0.4 Ml Syringe) 40 mg SUBCUT Q12HR [facility] Last Admin: 12/21/20 08:27 Dose: 40 mg Documented by: Remdesivir 200 mg/ Sodium (Chloride) 250 mls @ 250 mls/hr IV ONETIME ONE Stop: 12/19/20 02:38 Last Admin: 12/19/20 03:03 Dose: 250 mls/hr Documented by: Sterile Water (Sterile Water For Injection) Confirm Administered Dose 40 mls @ as directed .ROUTE .STK-MED ONE Stop: 12/19/20 02:38 Last Admin: 12/19/20 03:05 Dose: Not Given Documented by: Piperacillin Sod/Tazobactam (Sod 3.375 gm/ Sodium Chloride) 100 mls @ 200 mls/hr IV Q6H [facility] Last Infusion: 12/19/20 09:57 Dose: Infused Documented by: Insulin Human Lispro (Insulin Lispro 100 Units/Ml 3 Ml Vial) 0 unit SUBCUT TIDMEALS [facility]; Protocol Last Admin: 12/19/20 17:11 Dose: 1 units Documented by: Sodium Chloride (Sodium Chloride 0.9% 10 Ml Syringe) 10 ml IV ASDIRECTED PRN PRN Reason: Keep Vein Open Last Admin: 12/19/20 13:56 Dose: 10 ml Documented by: - Exam Quality Assessment: Supplemental Oxygen General: Alert, Oriented HEENT: Pupils Equal, Pupils Reactive, EOMI, Mucous Membr. Moist/[place]ia Neck: Supple Lungs: Clear to Auscultation, Normal Respiratory Effort, Decreased Breath Sounds Cardiovascular: Regular Rate, Regular Rhythm GI/Abdominal Exam: Normal Bowel Sounds, Soft, Non-Tender, No Organomegaly, No Distention, No Abnormal Bruit, No Mass, Pelvis Stable (Male) Exam: No Hernia, Normal Inspection, Normal Prostate, Circumcised Back Exam: Normal Inspection, Full Range of Motion Extremities: Normal Inspection, Normal Range of Motion, Non-Tender, No Pedal Edema, Normal Capillary Refill Skin: Warm, Dry, Intact Wound/Incisions: Healing Well Neurological: No New Focal Deficit Psy/Mental Status: Alert, Normal Affect, Normal Mood - Patient Data Lab Results Last 24 hrs: Laboratory Results - last 24 hr 12/21/20 12/21/20 12/21/20 Range/Units 12:10 17:13 20:58 POC Glucose 324 H 277 H 217 H (70-99) mg/dL 12/22/20 Range/Units 08:00 POC Glucose 129 H (70-99) mg/dL Result Diagrams: 12/21/20 06:17 12/21/20 06:17 Shine Results Last 24 hrs: Microbiology 12/18/20 23:35 Aerobic Blood Culture - Preliminary Blood - Picc Line NO GROWTH AFTER 3 DAYS Anaerobic Blood Culture - Preliminary NO GROWTH AFTER 3 DAYS 12/18/20 23:30 Aerobic Blood Culture - Preliminary Blood - Picc Line NO GROWTH AFTER 3 DAYS Anaerobic Blood Culture - Final Sepsis Event Note - Evaluation Sepsis Screening Result: No Definite Risk - Focused Exam Vital Signs: Vital Signs Temp Pulse Resp BP BP BP Pulse Ox 12/22/20 09:44 129/80 12/22/20 08:00 36.3 C 92 20 129/80 95 12/22/20 04:00 36.7 C 72 20 107/68 92 L 12/22/20 01:00 12/22/20 00:00 36.4 C 82 20 105/61 92 L Pulse Ox 12/22/20 09:44 12/22/20 08:00 12/22/20 04:00 12/22/20 01:00 92 L 12/22/20 00:00 - Problem List & Annotations (1) COVID SNOMED Code(s): 327424547 Code(s): U07.1 - COVID-19 Status: Acute Priority: Medium Current Visit: No Onset Date: ~12/07/20 Annotation/Comment:: better see note. (2) Hx of cancer of lung SNOMED Code(s): 545165635, 588455134 Code(s): Z85.118 - PERSONAL HISTORY OF MALIGNANT NEOPLASM OF BRONCHUS AND LUNG Status: Acute Priority: Medium Current Visit: No Onset Date: ~12/20/20 Annotation/Comment:: emperic antibiotics cefapime and suspect good response clinically so will anticipate. (3) Hypoxia SNOMED Code(s): 627898886 Code(s): R09.02 - HYPOXEMIA Status: Acute Priority: Medium Current Visit: No Onset Date: ~12/20/20 Annotation/Comment:: improving 72% and flow rate 30 liters and weaning todayas tolerated. emperic treatment of elavated d dimer given hx of cancer and no available pulm angiogram. didmier 370 to 440 again this am so appears related to inflamitory response. no clinical symptoms of p.e but high risk. monitoring d dimer /hgn a nd platelets daily . (4) Thrombocytopenia SNOMED Code(s): 210799652 Code(s): D69.6 - THROMBOCYTOPENIA, UNSPECIFIED Status: Acute Priority: Medium Current Visit: Yes Onset Date: ~12/19/20 Annotation/Comment:: consumption plus hx of chronic thombocytopenia related to chemo and rad suspected. - Problem List Review Problem List Initiated/Reviewed/Updated: Yes - My Orders Last 24 Hours: My Active Orders 12/21/20 18:00 Rivaroxaban [Xarelto] 10 mg PO WITHDINNER - Plan Plan:: 65-year-old male with significant pulmonary comorbidities including bilateral pulmonary neoplasms status post chemotherapy, radiation, immunotherapy and lobectomy who presented with acute hypoxic respiratory failure secondary to COVID-19 pneumonia. Acute hypoxic respiratory failure secondary to COVID-19 pneumonia/ARDS -Noted groundglass opacities in multiple lung elder with positive covid test on 12/09/20 - overall consistent with COVID-19 pneumonia in a background of interstitial fibrosis likely secondary to patient's recent lung cancer treatments, right upper lobe mass also noted on CT scan with patient's known non-small cell lung cancer -Patient is requiring initially nonrebreather and now high flow nasal cannula, current FiO2 is 80% - PA FiO2 ratio less than 100, patient meets criteria for severe ARDS - continuous pulse oximetry, telemetry monitoring -We will initiate treatment dexamethasone 6 mg daily for 10 days of treatment, remdesivir 200 mg initial with 100 mg daily - daily ALT level while on remdesivir - d/c if ALT >5x upper limit of normal -discussed the benefits and risks of remdesivir treatment patient was agreeable -Scheduled DuoNeb, albuterol nebulizer as needed -Self proning as tolerated -Zosyn for any superimposed bacterial pneumonia concerns -Overall patient is significantly poor prognosis, had prolonged discussion about CODE STATUS -at this point patient wishes to be full code despite the low c janis of survival given his non-small cell lung cancer, history of lobectomy and severe ARDS secondary to COVID-19 pneumonia Diabetes mellituswell controlled on Metformin, hold Metformin, twice daily glucose checks for now, may need setting scale insulin given likely hyper glycemia with steroid administration Hypertensioncontinue losartan as studies have shown ours to be potentially beneficial Anxiety/depressioncontinue sertraline, ordered 0.5 mg Ativan every 8 hour for anxiety due to dyspnea Fluidsnone Electrolyteswithin normal lites Dietn.p.o. for now given respiratory status DVT prophylaxis Lovenox. 12/20/20 afebrile/vss on high flow 80% down to 7 liter flow // tolerating prone . desats hard when walking to b.r. no chest pain . slept fair. appetite poor. i/os normal voiding patterns. lab reviewed p.e. lungs decreased throughout but clear. no ronchii or rales. abd benign cor rrr 110 /sats 92-96% at rest . no edema feet well perfused . assess. covid syndrome on high flow 80 to 75 /o2 o2 .6.. day 13 by symptoms count . cont current support and wean as tolerated. [facility] afebrile vss o2 at 70% with 30 liters flow rate. slept fair . mild chest discomfort now better(with deep breathes being easier)/ cough mild.no pleuritic or cardiac pain. appetite poor. b.s stable taking glucerna. day 2 remdesivier.// steriods // high flow o2// hhn. p.e. bs better with better air exchange.no ronchii or rales. decreased rt posterior lobe (lobectomy) resting rr 20 cor:rrr 100-110 no murmur s3/s4 abd benign m.s benign. neuro:more alert and interactive.aox4 assess:plan 1// covid day 12 or 13 ding better turning corner slowly // day 2 remdesivier and hgih flow o2 day 5 . anticipate weaning today and over next few days. 2// p.e. prophylaxis started oral xaralto sec to high d dimer. no signs of organ failure or cv compromise,euvolemic 3// anorexia slowly resolving. 4// dm stable. 5// lung cancer and pneumonia day 5 ? repeat xray or cont emperic treatment for few more days and dc . 6// home going possible over weekend or early next week . [facility] afebrile vss o2 at 70% with 30 liters flow rate. slept fair . mild chest discomfort now better(with deep breathes being easier)/ cough mild.no pleuritic or cardiac pain. appetite poor. b.s stable taking glucerna. day 2 remdesivier.// steriods // high flow o2// hhn. p.e. bs better with better air exchange.no ronchii or rales. decreased rt posterior lobe (lobectomy) resting rr 20 cor:rrr 100-110 no murmur s3/s4 abd benign m.s benign. neuro:more alert and interactive.aox4 assess:plan 1// covid day 12 or 13 ding better turning corner slowly // day 2 remdesivier and hgih flow o2 day 5 . anticipate weaning today and over next few days. 2// p.e. prophylaxis started oral xaralto sec to high d dimer. no signs of organ failure or cv compromise,euvolemic 3// anorexia slowly resolving. 4// dm stable. 5// lung cancer and pneumonia day 5 ? repeat xray or cont emperic treatment for few more days and dc . 6// home going possible over weekend or early next week . [facility] 12/22/20 afebrile good night /slept fair.desats to mid 80S and o2 increased to 80% and 30 liters air flow. feels comfortable and sitting in chair.sats 94% hr100// rr 20 eating better// no n/v .voiding well . no pain really . p.e. lungs decreased slightly rt base and fair otherwise. no rales or ronchii no increased wob cor rrr without murmur / no chest wall pain . abd benign neuro aox 4 and good awareness/[place] easily . lab lfts remain elevated but stable. day 3 remdesivir/ day 3 zosyn// day 3 high flow o2 with nebs. assess: 1// covid stable but not weaning yesterday and again looks and feels better but slowly improving . cont . current treatments . o2 at 30 liters flow and 80 %fio2. 2//pneumonia: on zosyn and will cont . limit xrays sec to exposure.hgigher risk for sepsis sec to lung ca recurrance ad fibrosis likely will need o2 home therapy sith slow progress during recovery . 3//lung ca no change in status. 4//nutrition : improving appetite. 5// weakness still prominant but starting to improve. tolerates non prone positions better. in chair and comfortable. boh
[2020-12-22] MEDS: Rivaroxaban 10 MG Tab PO SCH (17:47)
[2020-12-22] MEDS: LORazepam 0.5 MG Tab PO PRN (21:07)
[2020-12-23] MEDS: Piperacillin/Tazobactam 3.375 GM in Sodium Chloride 0.9% 100 ML IV SCH ×3 (00:32→12:20)
[2020-12-23] MEDS: Losartan 50 MG Tab PO SCH (08:35)
[2020-12-23] MEDS: Dexamethasone 4 MG/ML SDV IVPUSH SCH (08:35)
[2020-12-23] MEDS: Sertraline 50 MG Tab PO SCH (08:36)
[2020-12-23] MEDS: REMDESIVIR 100 MG in Sodium Chloride 0.9% 100 ML IV SCH (08:36)
[2020-12-23] MEDS: Insulin Lispro 100 Units/ML 3 ML Vial SUBCUT SCH ×4 (08:45→21:01)
[2020-12-23] MEDS: Formoterol/Mometasone 200-5 MCG 8.8 GM Inhaler IH SCH ×2 (08:46→21:00)
--- NOTE | 2020-12-23 10:35 | PCM.PN ---
- General Info Date of Service: 12/23/20 Admission Dx/Problem (Free Text): covid/resp failure Subjective Update: 12/22/20 afebrile good night /slept fair.desats to mid 80S and o2 increased to 80% and 30 liters air flow. feels comfortable and sitting in chair.sats 94% hr100// rr 20 eating better// no n/v .voiding well . no pain really . p.e. lungs decreased slightly rt base and fair otherwise. no rales or ronchii no increased wob cor rrr without murmur / no chest wall pain . abd benign neuro aox 4 and good awareness/[place] easily . lab lfts remain elevated but stable. day 3 remdesivir/ day 3 zosyn// day 3 high flow o2 with nebs. assess: 1// covid stable but not weaning yesterday and again looks and feels better but slowly improving . cont . current treatments . o2 at 30 liters flow and 80 %fio2. 2//pneumonia: on zosyn and will cont . limit xrays sec to exposure.hgigher risk for sepsis sec to lung ca recurrance ad fibrosis likely will need o2 home therapy sith slow progress during recovery . 3//lung ca no change in status. 4//nutrition : improving appetite. 5// weakness still prominant but starting to improve. tolerates non prone positions better. in chair and comfortable. boh Functional Status: Reports: Pain Controlled - Review of Systems General: Reports: No Symptoms HEENT: Reports: No Symptoms Pulmonary: Reports: No Symptoms Cardiovascular: Reports: No Symptoms, Dyspnea on Exertion Gastrointestinal: Reports: No Symptoms Genitourinary: Reports: No Symptoms Musculoskeletal: Reports: No Symptoms Skin: Reports: No Symptoms Neurological: Reports: No Symptoms Psychiatric: Reports: No Symptoms - Patient Data Vitals - Most Recent: Last Vital Signs Temp 37.0 C 12/23/20 08:32 Pulse 70 12/23/20 08:32 Resp 22 H 12/23/20 08:32 BP 136/82 12/23/20 08:35 Pulse Ox 96 12/23/20 08:32 Weight - Most Recent: 82.463 kg I&O - Last 24 Hours: Intake & Output 12/22/20 12/23/20 12/23/20 22:59 06:59 14:59 Intake Total 300 400 Balance 300 400 Lab Results Last 24 Hours: Laboratory Results - last 24 hr 12/22/20 12/22/20 12/22/20 Range/Units 12:16 17:42 20:20 POC Glucose 205 H 293 H 317 H (70-99) mg/dL 12/23/20 Range/Units 08:45 POC Glucose 134 H (70-99) mg/dL Shine Results Last 24 Hours: Microbiology 12/18/20 23:35 Aerobic Blood Culture - Preliminary Blood - Picc Line NO GROWTH AFTER 4 DAYS Anaerobic Blood Culture - Preliminary NO GROWTH AFTER 4 DAYS 12/18/20 23:30 Aerobic Blood Culture - Preliminary Blood - Picc Line NO GROWTH AFTER 4 DAYS Anaerobic Blood Culture - Final Med Orders - Current: Current Medications Acetaminophen (Acetaminophen 325 Mg Tab) 650 mg PO Q4H PRN PRN Reason: Pain (Mild 1-3)/fever Last Admin: 12/22/20 09:49 Dose: 650 mg Documented by: Albuterol (Albuterol 6.7 Gm Inhaler) 6.7 gm INH Q4H PRN PRN Reason: Shortness of Breath Dexamethasone (Dexamethasone 4 Mg/Ml Sdv) 6 mg IVPUSH DAILY [facility] Stop: 12/27/20 09:01 Last Admin: 12/23/20 08:35 Dose: 6 mg Documented by: Dextrose/Water (50% Dextrose In Water 50 Ml Syringe) 50 ml IVPUSH Q15M PRN PRN Reason: Hypoglycemia Glucagon (Glucagon,Human Recombinant 1 Mg Vial) 1 mg IM Q15M PRN PRN Reason: Hypoglycemia Piperacillin Sod/Tazobactam (Sod 3.375 gm/ Sodium Chloride) 100 mls @ 200 mls/hr IV Q6HR [facility] Last Admin: 12/23/20 05:45 Dose: 200 mls/hr Documented by: Insulin Human Lispro (Insulin Lispro 100 Units/Ml 3 Ml Vial) 0 unit SUBCUT WITHMEALSANDBED [facility]; Protocol Last Admin: 12/23/20 08:45 Dose: Not Given Documented by: Lorazepam (Lorazepam 0.5 Mg Tab) 0.5 mg PO Q8H PRN PRN Reason: Anxiety Last Admin: 12/22/20 21:07 Dose: 0.5 mg Documented by: Losartan Potassium (Losartan 50 Mg Tab) 25 mg PO DAILY [facility] Last Admin: 12/23/20 08:35 Dose: 25 mg Documented by: Mometasone Furoate/Formoterol Fumar (Formoterol/Mometasone 200-5 Mcg 8.8 Gm Inhaler) 0 puff IH BID [facility] Last Admin: 12/23/20 08:46 Dose: 2 puff Documented by: Rivaroxaban (Rivaroxaban 10 Mg Tab) 10 mg PO WITHDINNER [facility] Last Admin: 12/22/20 17:47 Dose: 10 mg Documented by: Sertraline HCl (Sertraline 50 Mg Tab) 50 mg PO DAILY [facility] Last Admin: 12/23/20 08:36 Dose: 50 mg Documented by: Sodium Chloride (Sodium Chloride 0.9% 10 Ml Syringe) 10 ml FLUSH ASDIRECTED PRN PRN Reason: IV Use Last Admin: 12/22/20 13:12 Dose: 10 ml Documented by: Discontinued Medications Albuterol (Albuterol 0.083% 2.5 Mg/3 Ml Neb Soln) 2.5 mg NEB Q2H PRN PRN Reason: Wheezing Albuterol (Albuterol 6.7 Gm Inhaler) 0 gm INH Q4HR [facility] Albuterol/Ipratropium (Albuterol/Ipratropium 3.0-0.5 Mg/3 Ml Neb Soln) 3 ml NEB Q6HRRT [facility] Last Admin: 12/19/20 08:20 Dose: 3 ml Documented by: Enoxaparin Sodium (Enoxaparin 40 Mg/0.4 Ml Syringe) 40 mg SUBCUT DAILY [facility] Last Admin: 12/19/20 09:17 Dose: 40 mg Documented by: Enoxaparin Sodium (Enoxaparin 40 Mg/0.4 Ml Syringe) 40 mg SUBCUT Q12HR [facility] Last Admin: 12/21/20 08:27 Dose: 40 mg Documented by: Remdesivir 200 mg/ Sodium (Chloride) 250 mls @ 250 mls/hr IV ONETIME ONE Stop: 12/19/20 02:38 Last Admin: 12/19/20 03:03 Dose: 250 mls/hr Documented by: Remdesivir 100 mg/ Sodium (Chloride) 100 mls @ 100 mls/hr IV Q24H [facility] Stop: 12/23/20 09:59 Last Admin: 12/23/20 08:36 Dose: 100 mls/hr Documented by: Sterile Water (Sterile Water For Injection) Confirm Administered Dose 40 mls @ as directed .ROUTE .STK-MED ONE Stop: 12/19/20 02:38 Last Admin: 12/19/20 03:05 Dose: Not Given Documented by: Piperacillin Sod/Tazobactam (Sod 3.375 gm/ Sodium Chloride) 100 mls @ 200 mls/hr IV Q6H [facility] Last Infusion: 12/19/20 09:57 Dose: Infused Documented by: Insulin Human Lispro (Insulin Lispro 100 Units/Ml 3 Ml Vial) 0 unit SUBCUT TIDMEALS [facility]; Protocol Last Admin: 12/19/20 17:11 Dose: 1 units Documented by: Sodium Chloride (Sodium Chloride 0.9% 10 Ml Syringe) 10 ml IV ASDIRECTED PRN PRN Reason: Keep Vein Open Last Admin: 12/19/20 13:56 Dose: 10 ml Documented by: - Exam Quality Assessment: Supplemental Oxygen General: Alert, Oriented HEENT: Pupils Equal, Pupils Reactive, EOMI, Mucous Membr. Moist/[place] Neck: Supple Lungs: Clear to Auscultation, Normal Respiratory Effort, Decreased Breath Sounds Cardiovascular: Regular Rate, Regular Rhythm GI/Abdominal Exam: Normal Bowel Sounds, Soft, Non-Tender, No Organomegaly, No Distention, No Abnormal Bruit, No Mass, Pelvis Stable (Male) Exam: No Hernia, Normal Inspection, Normal Prostate, Circumcised Back Exam: Normal Inspection, Full Range of Motion Extremities: Normal Inspection, Normal Range of Motion, Non-Tender, No Pedal Edema, Normal Capillary Refill Skin: Warm, Dry, Intact Wound/Incisions: Healing Well Neurological: No New Focal Deficit Psy/Mental Status: Alert, Normal Affect, Normal Mood - Patient Data Lab Results Last 24 hrs: Laboratory Results - last 24 hr 12/22/20 12/22/20 12/22/20 Range/Units 12:16 17:42 20:20 POC Glucose 205 H 293 H 317 H (70-99) mg/dL 12/23/20 Range/Units 08:45 POC Glucose 134 H (70-99) mg/dL Result Diagrams: 12/21/20 06:17 12/21/20 06:17 Shine Results Last 24 hrs: Microbiology 12/18/20 23:35 Aerobic Blood Culture - Preliminary Blood - Picc Line NO GROWTH AFTER 4 DAYS Anaerobic Blood Culture - Preliminary NO GROWTH AFTER 4 DAYS 12/18/20 23:30 Aerobic Blood Culture - Preliminary Blood - Picc Line NO GROWTH AFTER 4 DAYS Anaerobic Blood Culture - Final Sepsis Event Note - Evaluation Sepsis Screening Result: No Definite Risk - Focused Exam Vital Signs: Vital Signs Temp Pulse Resp BP BP Pulse Ox 12/23/20 08:35 136/82 12/23/20 08:32 37.0 C 70 22 H 136/82 96 12/23/20 04:00 36.7 C 70 18 118/67 93 L 12/23/20 00:00 36.9 C 74 20 137/70 91 L - Problem List & Annotations (1) COVID SNOMED Code(s): 701280745 Code(s): U07.1 - COVID-19 Status: Acute Priority: Medium Current Visit: No Onset Date: ~12/07/20 Annotation/Comment:: better see note. 12/22/20 slow improvment no weaning (2) Hx of cancer of lung SNOMED Code(s): 106499397, 348580692 Code(s): Z85.118 - PERSONAL HISTORY OF MALIGNANT NEOPLASM OF BRONCHUS AND LUNG Status: Acute Priority: Medium Current Visit: No Onset Date: ~12/20/20 Annotation/Comment:: emperic antibiotics cefapime and suspect good response clinically so will cont. (3) Hypoxia SNOMED Code(s): 567403559 Code(s): R09.02 - HYPOXEMIA Status: Acute Priority: Medium Current Visit: No Onset Date: ~12/20/20 Annotation/Comment:: improving 72% and flow rate 30 liters and weaning today as tolerated. emperic treatment of elavated d dimer given hx of cancer and no available pulm angiogram. ddimier 370 to 440 again this am so appears related to inflamitory response. no clinical symptoms of p.e but high risk. monitoring d dimer /hgn a nd platelets daily . (4) Thrombocytopenia SNOMED Code(s): 115292014 Code(s): D69.6 - THROMBOCYTOPENIA, UNSPECIFIED Status: Acute Priority: Medium Current Visit: Yes Onset Date: ~12/19/20 Annotation/Comment:: consumption plus hx of chronic thombocytopenia related to chemo and rad suspected. - Problem List Review Problem List Initiated/Reviewed/Updated: Yes - Assessment Assessment:: 12/22/20 afebrile good night /slept fair.desats to mid 80S and o2 increased to 80% and 30 liters air flow. feels comfortable and sitting in chair.sats 94% hr100// rr 20 eating better// no n/v .voiding well . no pain really . p.e. lungs decreased slightly rt base and fair otherwise. no rales or ronchii no increased wob cor rrr without murmur / no chest wall pain . abd benign neuro aox 4 and good awareness/[place] easily . lab lfts remain elevated but stable. day 3 remdesivir/ day 3 zosyn// day 3 high flow o2 with nebs. assess: 1// covid stable but not weaning yesterday and again looks and feels better but slowly improving . cont . current treatments . o2 at 30 liters flow and 80 %fio2. 2//pneumonia: on zosyn and will cont . limit xrays sec to exposure.hgigher risk for sepsis sec to lung ca recurrance ad fibrosis likely will need o2 home therapy sith slow progress during recovery . 3//lung ca no change in status. 4//nutrition : improving appetite. 5// weakness still prominant but starting to improve. tolerates non prone positions better. in chair and comfortable. chon - Plan Plan:: 65-year-old male with significant pulmonary comorbidities including bilateral pulmonary neoplasms status post chemotherapy, radiation, immunotherapy and lobectomy who presented with acute hypoxic respiratory failure secondary to COVID-19 pneumonia. Acute hypoxic respiratory failure secondary to COVID-19 pneumonia/ARDS -Noted groundglass opacities in multiple lung elder with positive covid test on 12/09/20 - overall consistent with COVID-19 pneumonia in a background of interstitial fibrosis likely secondary to patient's recent lung cancer treatments, right upper lobe mass also noted on CT scan with patient's known non-small cell lung cancer -Patient is requiring initially nonrebreather and now high flow nasal cannula, current FiO2 is 80% - PA FiO2 ratio less than 100, patient meets criteria for severe ARDS - continuous pulse oximetry, telemetry monitoring -We will initiate treatment dexamethasone 6 mg daily for 10 days of treatment, remdesivir 200 mg initial with 100 mg daily - daily ALT level while on remdesivir - d/c if ALT >5x upper limit of normal -discussed the benefits and risks of remdesivir treatment patient was agreeable -Scheduled DuoNeb, albuterol nebulizer as needed -Self proning as tolerated -Zosyn for any superimposed bacterial pneumonia concerns -Overall patient is significantly poor prognosis, had prolonged discussion about CODE STATUS -at this point patient wishes to be full code despite the low chance of survival given his non-small cell lung cancer, history of lobectomy and severe ARDS secondary to COVID-19 pneumonia Diabetes mellituswell controlled on Metformin, hold Metformin, twice daily glucose checks for now, may need setting scale insulin given likely hyperglycemia with steroid administration Hypertensioncontinue losartan as studies have shown ours to be potentially beneficial Anxiety/depressioncontinue sertraline, ordered 0.5 mg Ativan every 8 hour for anxiety due to dyspnea Fluidsnone Electrolyteswithin normal lites Dietn.p.o. for now given respiratory status DVT prophylaxis Lovenox. 12/20/20 afebrile/vss on high flow 80% down to 7 liter flow // tolerating prone . desats hard when walking to b.r. no chest pain . slept fair. appetite poor. i/os normal voiding patterns. lab reviewed p.e. lungs decreased throughout but clear. no ronchii or rales. abd benign cor rrr 110 /sats 92-96% at rest . no edema feet well perfused . assess. covid syndrome on high flow 80 to 75 /o2 o2 .6.. day 13 by symptoms count . cont current support and wean as tolerated. b.s tolerable. boh 12/21/20 afebrile vss o2 at 70% with 30 liters flow rate. slept fair . mild chest discomfort now better(with deep breathes being easier)/ cough mild.no pleuritic or cardiac pain. appetite poor. b.s stable taking glucerna. day 2 remdesivier.// steriods // high flow o2// hhn. p.e. bs better with better air exchange.no ronchii or rales. decreased rt posterior lobe (lobectomy) resting rr 20 cor:rrr 100-110 no murmur s3/s4 abd benign m.s benign. neuro:more alert and interactive.aox4 assess:plan 1// covid day 12 or 13 ding better turning corner slowly // day 2 remdesivier and hgih flow o2 day 5 . anticipate weaning today and over next few days. 2// p.e. prophylaxis started oral xaralto sec to high d dimer. no signs of organ failure or cv compromise,euvolemic 3// anorexia slowly resolving. 4// dm stable. 5// lung cancer and pneumonia day 5 ? repeat xray or cont emperic treatment for few more days and dc . 6// home going possible over weekend or early next week . boh 12/21/20 afebrile vss o2 at 70% with 30 liters flow rate. slept fair . mild chest discomfort now better(with deep breathes being easier)/ cough mild.no pleuritic or cardiac pain. appetite poor. b.s stable taking glucerna. day 2 remdesivier.// steriods // high flow o2// hhn. p.e. bs better with better air exchange.no ronchii or rales. decreased rt posterior lobe (lobectomy) resting rr 20 cor:rrr 100-110 no murmur s3/s4 abd benign m.s benign. neuro:more alert and interactive.aox4 assess:plan 1// covid day 12 or 13 ding better turning corner slowly // day 2 remdesivier and hgih flow o2 day 5 . anticipate weaning today and over next few days. 2// p.e. prophylaxis started oral xaralto sec to high d dimer. no signs of organ failure or cv compromise,euvolemic 3// anorexia slowly resolving. 4// dm stable. 5// lung cancer and pneumonia day 5 ? repeat xray or cont emperic treatment for few more days and dc . 6// home going possible over weekend or early next week . boh 12/22/20 afebrile good night /slept fair.desats to mid 80S and o2 increased to 80% and 30 liters air flow. feels comfortable and sitting in chair.sats 94% hr100// rr 20 eating better// no n/v .voiding well . no pain really . p.e. lungs decreased slightly rt base and fair otherwise. no rales or ronchii no increased wob cor rrr without murmur / no chest wall pain . abd benign neuro aox 4 and good awareness/[place] easily . lab lfts remain elevated but stable. day 3 remdesivir/ day 3 zosyn// day 3 high flow o2 with nebs. assess: 1// covid stable but not weaning yesterday and again looks and feels better but slowly improving . cont . current treatments . o2 at 30 liters flow and 80 %fio2. 2//pneumonia: on Zosyn and will cont . limit xrays sec to exposure.hgigher risk for sepsis sec to lung ca recurrance ad fibrosis likely will need o2 home therapy sith slow progress during recovery . 3//lung ca no change in status. 4//nutrition : improving appetite. 5// weakness still prominent but starting to improve. tolerates non prone positions better. in chair and comfortable. boh
--- NOTE | 2020-12-23 12:42 | PCM.PN ---
- General Info Date of Service: 12/23/20 Admission Dx/Problem (Free Text): covid/resp failure Subjective Update: 12/23/20* afebrile // vss tachycardia and tachypnea improved. fio2 80 to 62% high flow 30 liters. sats mid 90s and wob easier. p.e. unchanged. assess: plan 1// covid improving and will wean aggressively as tolerated today. 2// elevated d dimer : on Xarelto and tracking.discussed anticoag. recommendations and cont x 3 months. 3// elevated b.s : sec to steroids day 4 remdisivir /zosyn and dexamethasone and treat with insulin sliding scale as appetite improving. 4// elevated lfts: sec to unknown causes plus remdisivir .cont monitors stable since started. 5// pneumonia : day 4 zosyn and will cont today and switch in am if clinically improving. 6// copd/pulm fibrosis: stable ,cont . current hhn. 7// bone marrow suppression: wbc stable/hgn stable/ mild thrombocytopenia monitoring. 8// home going status: dc planing likely on o2 and in next 72-96 hours if cont. to improve. boh Functional Status: Reports: Pain Controlled, Tolerating Diet - Review of Systems General: Reports: No Symptoms HEENT: Reports: No Symptoms Pulmonary: Reports: No Symptoms, Shortness of Breath, Cough Cardiovascular: Reports: No Symptoms Gastrointestinal: Reports: No Symptoms Genitourinary: Reports: No Symptoms Musculoskeletal: Reports: No Symptoms Skin: Reports: No Symptoms Neurological: Reports: No Symptoms Psychiatric: Reports: No Symptoms - Patient Data Vitals - Most Recent: Last Vital Signs Temp 37.0 C 12/23/20 08:32 Pulse 70 12/23/20 08:32 Resp 22 H 12/23/20 08:32 BP 136/82 12/23/20 08:35 Pulse Ox 96 12/23/20 08:32 Weight - Most Recent: 82.463 kg I&O - Last 24 Hours: Intake & Output 12/22/20 12/23/20 12/23/20 22:59 06:59 14:59 Intake Total 300 400 240 Balance 300 400 240 Lab Results Last 24 Hours: Laboratory Results - last 24 hr 12/22/20 12/22/20 12/22/20 Range/Units 12:16 17:42 20:20 POC Glucose 205 H 293 H 317 H (70-99) mg/dL 12/23/20 Range/Units 08:45 POC Glucose 134 H (70-99) mg/dL Shine Results Last 24 Hours: Microbiology 12/18/20 23:35 Aerobic Blood Culture - Preliminary Blood - Picc Line NO GROWTH AFTER 4 DAYS Anaerobic Blood Culture - Preliminary NO GROWTH AFTER 4 DAYS 12/18/20 23:30 Aerobic Blood Culture - Preliminary Blood - Picc Line NO GROWTH AFTER 4 DAYS Anaerobic Blood Culture - Final Med Orders - Current: Current Medications Acetaminophen (Acetaminophen 325 Mg Tab) 650 mg PO Q4H PRN PRN Reason: Pain (Mild 1-3)/fever Last Admin: 12/22/20 09:49 Dose: 650 mg Documented by: Albuterol (Albuterol 6.7 Gm Inhaler) 6.7 gm INH Q4H PRN PRN Reason: Shortness of Breath Dexamethasone (Dexamethasone 4 Mg/Ml Sdv) 6 mg IVPUSH DAILY [facility] Stop: 12/27/20 09:01 Last Admin: 12/23/20 08:35 Dose: 6 mg Documented by: Dextrose/Water (50% Dextrose In Water 50 Ml Syringe) 50 ml IVPUSH Q15M PRN PRN Reason: Hypoglycemia Glucagon (Glucagon,Human Recombinant 1 Mg Vial) 1 mg IM Q15M PRN PRN Reason: Hypoglycemia Piperacillin Sod/Tazobactam (Sod 3.375 gm/ Sodium Chloride) 100 mls @ 200 mls/hr IV Q6HR [facility] Last Admin: 12/23/20 12:20 Dose: 200 mls/hr Documented by: Insulin Human Lispro (Insulin Lispro 100 Units/Ml 3 Ml Vial) 0 unit SUBCUT WITHMEALSANDBED [facility]; Protocol Last Admin: 12/23/20 12:19 Dose: 3 units Documented by: Lorazepam (Lorazepam 0.5 Mg Tab) 0.5 mg PO Q8H PRN PRN Reason: Anxiety Last Admin: 12/22/20 21:07 Dose: 0.5 mg Documented by: Losartan Potassium (Losartan 50 Mg Tab) 25 mg PO DAILY [facility] Last Admin: 12/23/20 08:35 Dose: 25 mg Documented by: Mometasone Furoate/Formoterol Fumar (Formoterol/Mometasone 200-5 Mcg 8.8 Gm Inhaler) 0 puff IH BID [facility] Last Admin: 12/23/20 08:46 Dose: 2 puff Documented by: Rivaroxaban (Rivaroxaban 10 Mg Tab) 10 mg PO WITHDINNER [facility] Last Admin: 12/22/20 17:47 Dose: 10 mg Documented by: Sertraline HCl (Sertraline 50 Mg Tab) 50 mg PO DAILY [facility] Last Admin: 12/23/20 08:36 Dose: 50 mg Documented by: Sodium Chloride (Sodium Chloride 0.9% 10 Ml Syringe) 10 ml FLUSH ASDIRECTED PRN PRN Reason: IV Use Last Admin: 12/22/20 13:12 Dose: 10 ml Documented by: Discontinued Medications Albuterol (Albuterol 0.083% 2.5 Mg/3 Ml Neb Soln) 2.5 mg NEB Q2H PRN PRN Reason: Wheezing Albuterol (Albuterol 6.7 Gm Inhaler) 0 gm INH Q4HR IKER Albuterol/Ipratropium (Albuterol/Ipratropium 3.0-0.5 Mg/3 Ml Neb Soln) 3 ml NEB Q6HRRT [facility] Last Admin: 12/19/20 08:20 Dose: 3 ml Documented by: Enoxaparin Sodium (Enoxaparin 40 Mg/0.4 Ml Syringe) 40 mg SUBCUT DAILY [facility] Last Admin: 12/19/20 09:17 Dose: 40 mg Documented by: Enoxaparin Sodium (Enoxaparin 40 Mg/0.4 Ml Syringe) 40 mg SUBCUT Q12HR [facility] Last Admin: 12/21/20 08:27 Dose: 40 mg Documented by: Remdesivir 200 mg/ Sodium (Chloride) 250 mls @ 250 mls/hr IV ONETIME ONE Stop: 12/19/20 02:38 Last Admin: 12/19/20 03:03 Dose: 250 mls/hr Documented by: Remdesivir 100 mg/ Sodium (Chloride) 100 mls @ 100 mls/hr IV Q24H [facility] Stop: 12/23/20 09:59 Last Admin: 12/23/20 08:36 Dose: 100 mls/hr Documented by: Sterile Water (Sterile Water For Injection) Confirm Administered Dose 40 mls @ as directed .ROUTE .STK-MED ONE Stop: 12/19/20 02:38 Last Admin: 12/19/20 03:05 Dose: Not Given Documented by: Piperacillin Sod/Tazobactam (Sod 3.375 gm/ Sodium Chloride) 100 mls @ 200 mls/hr IV Q6H [facility] Last Infusion: 12/19/20 09:57 Dose: Infused Documented by: Insulin Human Lispro (Insulin Lispro 100 Units/Ml 3 Ml Vial) 0 unit SUBCUT TIDMEALS [facility]; Protocol Last Admin: 12/19/20 17:11 Dose: 1 units Documented by: Sodium Chloride (Sodium Chloride 0.9% 10 Ml Syringe) 10 ml IV ASDIRECTED PRN PRN Reason: Keep Vein Open Last Admin: 12/19/20 13:56 Dose: 10 ml Documented by: - Exam Quality Assessment: Supplemental Oxygen, DVT Prophylaxis General: Alert, Oriented HEENT: Pupils Equal, Pupils Reactive, EOMI, Mucous Membr. Moist/[place] Neck: Supple Lungs: Clear to Auscultation, Normal Respiratory Effort, Decreased Breath Sounds Cardiovascular: Regular Rate, Regular Rhythm GI/Abdominal Exam: Normal Bowel Sounds, Soft, Non-Tender, No Organomegaly, No Distention, No Abnormal Bruit, No Mass, Pelvis Stable (Male) Exam: No Hernia, Normal Inspection, Normal Prostate, Circumcised Back Exam: Normal Inspection, Full Range of Motion Extremities: Normal Inspection, Normal Range of Motion, Non-Tender, No Pedal Edema, Normal Capillary Refill Skin: Warm, Dry, Intact Wound/Incisions: Healing Well Neurological: No New Focal Deficit Psy/Mental Status: Alert, Normal Affect, Normal Mood - Patient Data Lab Results Last 24 hrs: Laboratory Results - last 24 hr 12/22/20 12/22/20 12/22/20 Range/Units 12:16 17:42 20:20 POC Glucose 205 H 293 H 317 H (70-99) mg/dL 12/23/20 Range/Units 08:45 POC Glucose 134 H (70-99) mg/dL Result Diagrams: 12/21/20 06:17 12/21/20 06:17 Shine Results Last 24 hrs: Microbiology 12/18/20 23:35 Aerobic Blood Culture - Preliminary Blood - Picc Line NO GROWTH AFTER 4 DAYS Anaerobic Blood Culture - Preliminary NO GROWTH AFTER 4 DAYS 12/18/20 23:30 Aerobic Blood Culture - Preliminary Blood - Picc Line NO GROWTH AFTER 4 DAYS Anaerobic Blood Culture - Final Sepsis Event Note - Evaluation Sepsis Screening Result: No Definite Risk - Focused Exam Vital Signs: Vital Signs Temp Pulse Resp BP BP Pulse Ox 12/23/20 08:35 136/82 12/23/20 08:32 37.0 C 70 22 H 136/82 96 12/23/20 04:00 36.7 C 70 18 118/67 93 L - Problem List & Annotations (1) COVID SNOMED Code(s): 513856299 Code(s): U07.1 - COVID-19 Status: Acute Priority: Medium Current Visit: No Onset Date: ~12/07/20 Annotation/Comment:: better see note. 12/22/20 slow improvment no weaning . doing better weaning. (2) Hx of cancer of lung SNOMED Code(s): 438097076, 226804761 Code(s): Z85.118 - PERSONAL HISTORY OF MALIGNANT NEOPLASM OF BRONCHUS AND LUNG Status: Acute Priority: Medium Current Visit: No Onset Date: ~12/20/20 Annotation/Comment:: emperic antibiotics cefapime and suspect good response clinically so will cont. 12/23/20 switch to po augmentin in am if stable (3) Hypoxia SNOMED Code(s): 868408788 Code(s): R09.02 - HYPOXEMIA Status: Acute Priority: Medium Current Visit: No Onset Date: ~12/20/20 Annotation/Comment:: improving 72% and flow rate 30 liters and weaning today as tolerated. emperic treatment of elavated d dimer given hx of cancer and no available pulm angiogram. ddimier 370 to 440 again this am so appears related to inflamitory response. no clinical symptoms of p.e but high risk. monitoring d dimer /hgn a nd platelets daily . (4) Thrombocytopenia SNOMED Code(s): 878321209 Code(s): D69.6 - THROMBOCYTOPENIA, UNSPECIFIED Status: Acute Priority: Medium Current Visit: Yes Onset Date: ~12/19/20 Annotation/Comment:: consumption plus hx of chronic thombocytopenia related to chemo and rad suspected. (5) Elevated LFTs SNOMED Code(s): 184642722 Code(s): R79.89 - OTHER SPECIFIED ABNORMAL FINDINGS OF BLOOD CHEMISTRY Status: Acute Priority: Medium Current Visit: Yes Onset Date: ~12/19/20 Annotation/Comment:: increased lfts prior to starting remdisivir and no known symptoms jaundice /hepatitis // + prev. cholycystectomy .// changes in lfts and cbc may be related to lung ca treatments. monitoring daily/ day 4 remdisivir - Problem List Review Problem List Initiated/Reviewed/Updated: Yes - Assessment Assessment:: 12/23/20* afebrile // vss tachycardia and tachypnea improved. fio2 80 to 62% high flow 30 liters. sats mid 90s and wob easier. p.e. unchanged. assess: plan 1// covid improving and will wean aggressively as tolerated today. 2// elevated d dimer : on Xarelto and tracking.discussed anticoag. recommendations and cont x 3 months. 3// elevated b.s : sec to steroids day 4 remdisivir /zosyn and dexamethasone and treat with insulin sliding scale as appetite improving. 4// elevated lfts: sec to unknown causes plus remdisivir .cont monitors stable since started. 5// pneumonia : day 4 zosyn and will cont today and switch in am if clinically improving. 6// copd/pulm fibrosis: stable ,cont . current hhn. 7// bone marrow suppression: wbc stable/hgn stable/ mild thrombocytopenia monitoring. 8// home going status: dc planing likely on o2 and in next 72-96 hours if cont. to improve. boh - Plan Plan:: 65-year-old male with significant pulmonary comorbidities including bilateral pulmonary neoplasms status post chemotherapy, radiation, immunotherapy and lobectomy who presented with acute hypoxic respiratory failure secondary to COVID-19 pneumonia. Acute hypoxic respiratory failure secondary to COVID-19 pneumonia/ARDS -Noted groundglass opacities in multiple lung elder with positive covid test on 12/09/20 - overall consistent with COVID-19 pneumonia in a background of interstitial fibrosis likely secondary to patient's recent lung cancer treatments, right upper lobe mass also noted on CT scan with patient's known non-small cell lung cancer -Patient is requiring initially nonrebreather and now high flow nasal cannula, current FiO2 is 80% - PA FiO2 ratio less than 100, patient meets criteria for severe ARDS - continuous pulse oximetry, telemetry monitoring -We will initiate treatment dexamethasone 6 mg daily for 10 days of treatment, remdesivir 200 mg initial with 100 mg daily - daily ALT level while on remdesivir - d/c if ALT >5x upper limit of normal -discussed the benefits and risks of remdesivir treatment patient was agreeable -Scheduled DuoNeb, albuterol nebulizer as needed -Self proning as tolerated -Zosyn for any superimposed bacterial pneumonia concerns -Overall patient is significantly poor prognosis, had prolonged discussion about CODE STATUS -at this point patient wishes to be full code despite the low chance of survival given his non-small cell lung cancer, history of lobectomy and severe ARDS secondary to COVID-19 pneumonia Diabetes mellituswell controlled on Metformin, hold Metformin, twice daily glucose checks for now, may need setting scale insulin given likely hyperglycemi a with steroid administration Hypertensioncontinue losartan as studies have shown ours to be potentially beneficial Anxiety/depressioncontinue sertraline, ordered 0.5 mg Ativan every 8 hour for anxiety due to dyspnea Fluidsnone Electrolyteswithin normal lites Dietn.p.o. for now given respiratory status DVT prophylaxis Lovenox. 12/20/20 afebrile/vss on high flow 80% down to 7 liter flow // tolerating prone . desats hard when walking to b.r. no chest pain . slept fair. appetite poor. i/os normal voiding patterns. lab reviewed p.e. lungs decreased throughout but clear. no ronchii or rales. abd benign cor rrr 110 /sats 92-96% at rest . no edema feet well perfused . assess. covid syndrome on high flow 80 to 75 /o2 o2 .6.. day 13 by symptoms count . cont current support and wean as tolerated. b.s tolerable. boh 12/21/20 afebrile vss o2 at 70% with 30 liters flow rate. slept fair . mild chest discomfort now better(with deep breathes being easier)/ cough mild.no pleuritic or cardiac pain. appetite poor. b.s stable taking glucerna. day 2 remdesivier.// steriods // high flow o2// hhn. p.e. bs better with better air exchange.no ronchii or rales. decreased rt posterior lobe (lobectomy) resting rr 20 cor:rrr 100-110 no murmur s3/s4 abd benign m.s benign. neuro:more alert and interactive.aox4 assess:plan 1// covid day 12 or 13 ding better turning corner slowly // day 2 remdesivier and hgih flow o2 day 5 . anticipate weaning today and over next few days. 2// p.e. prophylaxis started oral xaralto sec to high d dimer. no signs of organ failure or cv compromise,euvolemic 3// anorexia slowly resolving. 4// dm stable. 5// lung cancer and pneumonia day 5 ? repeat xray or cont emperic treatment for few more days and dc . 6// home going possible over weekend or early next week . boh 12/21/20 afebrile vss o2 at 70% with 30 liters flow rate. slept fair . mild chest discomfort now better(with deep breathes being easier)/ cough mild.no pleuritic or cardiac pain. appetite poor. b.s stable taking glucerna. day 2 remdesivier.// steriods // high flow o2// hhn. p.e. bs better with better air exchange.no ronchii or rales. decreased rt posterior lobe (lobectomy) resting rr 20 cor:rrr 100-110 no murmur s3/s4 abd benign m.s benign. neuro:more alert and interactive.aox4 assess:plan 1// covid day 12 or 13 ding better turning corner slowly // day 2 remdesivier and hgih flow o2 day 5 . anticipate weaning today and over next few days. 2// p.e. prophylaxis started oral xaralto sec to high d dimer. no signs of organ failure or cv compromise,euvolemic 3// anorexia slowly resolving. 4// dm stable. 5// lung cancer and pneumonia day 5 ? repeat xray or cont emperic treatment for few more days and dc . 6// home going possible over weekend or early next week . boh 12/22/20 afebrile good night /slept fair.desats to mid 80S and o2 increased to 80% and 30 liters air flow. feels comfortable and sitting in chair.sats 94% hr100// rr 20 eating better// no n/v .voiding well . no pain really . p.e. lungs decreased slightly rt base and fair otherwise. no rales or ronchii no increased wob cor rrr without murmur / no chest wall pain . abd benign neuro aox 4 and good awareness/[place] easily . lab lfts remain elevated but stable. day 3 remdesivir/ day 3 zosyn// day 3 high flow o2 with nebs. assess: 1// covid stable but not weaning yesterday and again looks and feels better but slowly improving . cont . current treatments . o2 at 30 liters flow and 80 %fio2. 2//pneumonia: on Zosyn and will cont . limit xrays sec to exposure.hgigher risk for sepsis sec to lung ca recurrance ad fibrosis likely will need o2 home therapy sith slow progress during recovery . 3//lung ca no change in status. 4//nutrition : improving appetite. 5// weakness still prominent but starting to improve. tolerates non prone positions better. in chair and comfortable. boh 12/23/20* afebrile // vss tachycardia and tachypnea improved. fio2 80 to 62% high flow 30 liters. sats mid 90s and wob easier. p.e. unchanged. assess: plan 1// covid improving and will wean aggressively as tolerated today. 2// elevated d dimer : on Xarelto and tracking.discussed anticoag. recommendations and cont x 3 months. 3// elevated b.s : sec to steroids day 4 remdisivir /zosyn and dexamethasone and treat with insulin sliding scale as appetite improving. 4// elevated lfts: sec to unknown causes plus remdisivir .cont monitors stable since started. 5// pneumonia : day 4 zosyn and will cont today and switch in am if clinically improving. 6// copd/pulm fibrosis: stable ,cont . current hhn. 7// bone marrow suppression: wbc stable/hgn stable/ mild thrombocytopenia monitoring. 8// home going status: dc planing likely on o2 and in next 72-96 hours if cont. to improve. boh
[2020-12-23 15:13] LABS: ANION GAP 12.3 mEq/L (7-13); CHLORIDE,CL 100 mmol/L (98-107); SODIUM,NA 136 mmol/L (136-145)
[2020-12-23] MEDS: metFORMIN 500 MG Tab PO SCH (15:57)
[2020-12-23] MEDS ORDERED: Insulin Glarg,Human.Rec.Analog 100 Unit/ML SUBCUT ONE (17:17)
[2020-12-23] MEDS ORDERED: Glucagon,Human Recombinant 1 MG Vial IM PRN (17:17)
[2020-12-23] MEDS: Rivaroxaban 10 MG Tab PO SCH (17:36)
[2020-12-23] MEDS: Amoxicillin/Clavulanate K 875-125 MG Tab PO SCH (21:00)
[2020-12-23] MEDS: LORazepam 0.5 MG Tab PO PRN (21:02)
[2020-12-24] MEDS: Insulin Lispro 100 Units/ML 3 ML Vial SUBCUT SCH ×4 (08:32→21:13)
[2020-12-24] MEDS: Formoterol/Mometasone 200-5 MCG 8.8 GM Inhaler IH SCH ×2 (08:32→21:05)
[2020-12-24] MEDS: Amoxicillin/Clavulanate K 875-125 MG Tab PO SCH ×2 (08:34→21:06)
[2020-12-24] MEDS: Sertraline 50 MG Tab PO SCH (08:35)
[2020-12-24] MEDS: Dexamethasone 4 MG/ML SDV IVPUSH SCH (08:35)
[2020-12-24] MEDS: metFORMIN 500 MG Tab PO SCH (08:45)
[2020-12-24] MEDS ORDERED: Losartan 25 MG Tab PO SCH (09:00)
--- NOTE | 2020-12-24 11:16 | PCM.PN ---
- General Info Date of Service: 12/24/20 Admission Dx/Problem (Free Text): covid/resp failure Subjective Update: 12/24/20 afebrile// vss feeling better / eating better. no new pains or complaints. slept fair. p.e. gen normal// no jaundice or abd pain . lungs clear and decreased.less wob currently 50% fio2 at 30 liters with sats 90-95% cor rrr abd benign. neuro clear and oriented. skin normal . boh lab: improved throughout. hgn stable /platlets stable wbc normal. lytes stable/ lfts stable b.s high and gen lantus 20 units and fbs this am form 340 to 124. assess:plan 1// covid day 13-14 doing better and agreesive weaning as tolerated switch to n.c. if able . day 5 remdesivir and dexamethasone. 2// secondary diabetes improved with daily Lantus will cont x 24 hours. restarted low dose metformin / increase dose if tolerated. 3// dc plans for fri//. dc if cont to improve with or without home o2 to be determined. 4// zosyn dced and now on augmentin and cont. x 5 day for 10 day course for clinical sec pneumonia. 5// lung ca stable . pulm fibrosis stable on hhn.increase activity and rehab. elavated d dimer >2100 and will cont Xarelto x 3 months 6// mild anemia tracking boh Functional Status: Reports: Pain Controlled - Review of Systems General: Reports: No Symptoms, Fatigue HEENT: Reports: No Symptoms Pulmonary: Reports: Shortness of Breath Cardiovascular: Reports: No Symptoms Gastrointestinal: Reports: No Symptoms Genitourinary: Reports: No Symptoms Musculoskeletal: Reports: No Symptoms Skin: Reports: No Symptoms Neurological: Reports: No Symptoms Psychiatric: Reports: No Symptoms - Patient Data Vitals - Most Recent: Last Vital Signs Temp 36.4 C 12/24/20 08:00 Pulse 68 12/24/20 08:00 Resp 22 H 12/24/20 08:00 BP 150/86 H 12/24/20 08:00 Pulse Ox 91 L 12/24/20 08:00 Weight - Most Recent: 82.463 kg I&O - Last 24 Hours: Intake & Output 12/23/20 12/24/20 12/24/20 22:59 06:59 14:59 Intake Total 450 150 Balance 450 150 Lab Results Last 24 Hours: Laboratory Results - last 24 hr 12/23/20 12/23/20 12/23/20 Range/Units 12:18 14:45 14:45 WBC 6.6 (5.0-10.0) 10^3/uL RBC 4.95 (4.6-6.2) 10^6/uL Hgb 12.9 L (14.0-18.0) g/dL Hct 39.4 L (40.0-54.0) % MCV 79.6 L (80-100) fL MCH 26.1 L (27.0-34.0) pg MCHC 32.7 L (33.0-35.0) g/dL Plt Count 195 (150-450) 10^3/uL Neut % (Auto) 93.6 H (42.2-75.2) % Lymph % (Auto) 2.6 L (20.5-50.1) % Finney % (Auto) 3.3 (2-8) % Eos % (Auto) 0.5 L (1.0-3.0) % Baso % (Auto) 0.0 (0.0-1.0) % D-Dimer, Quantitative 301 (0-400) ng/mL Sodium (136-145) mmol/L Potassium (3.5-5.1) mmol/L Chloride (98-107) mmol/L Carbon Dioxide (21-32) mmol/L Anion Gap (7-13) mEq/L BUN (7-18) mg/dL Creatinine (0.70-1.30) mg/dL Est Cr Clr Drug Dosing mL/min Estimated GFR (MDRD) BUN/Creatinine Ratio (No establ ref range) Glucose (70-99) mg/dL POC Glucose 282 H (70-99) mg/dL Calcium (8.5-10.1) mg/dL Total Bilirubin (0.2-1.0) mg/dL AST (15-37) U/L ALT (16-63) U/L Alkaline Phosphatase (46-116) U/L C-Reactive Protein (0.0-0.9) mg/dL Total Protein (6.4-8.2) g/dL Albumin (3.4-5.0) g/dL Globulin Albumin/Globulin Ratio 12/23/20 12/23/20 12/23/20 Range/Units 14:45 16:01 20:57 WBC (5.0-10.0) 10^3/uL RBC (4.6-6.2) 10^6/uL Hgb (14.0-18.0) g/dL Hct (40.0-54.0) % MCV (80-100) fL MCH (27.0-34.0) pg MCHC (33.0-35.0) g/dL Plt Count (150-450) 10^3/uL Neut % (Auto) (42.2-75.2) % Lymph % (Auto) (20.5-50.1) % Finney % (Auto) (2-8) % Eos % (Auto) (1.0-3.0) % Baso % (Auto) (0.0-1.0) % D-Dimer, Quantitative (0-400) ng/mL Sodium 136 (136-145) mmol/L Potassium 4.3 (3.5-5.1) mmol/L Chloride 100 (98-107) mmol/L Carbon Dioxide 28 (21-32) mmol/L Anion Gap 12.3 (7-13) mEq/L BUN 23 H (7-18) mg/dL Creatinine 1.11 (0.70-1.30) mg/dL Est Cr Clr Drug Dosing 65.05 mL/min Estimated GFR (MDRD) > 60 BUN/Creatinine Ratio 20.7 (No establ ref range) Glucose 409 H* (70-99) mg/dL POC Glucose 292 H 192 H (70-99) mg/dL Calcium 8.6 (8.5-10.1) mg/dL Total Bilirubin 0.4 (0.2-1.0) mg/dL AST 43 H (15-37) U/L ALT 105 H (16-63) U/L Alkaline Phosphatase 71 (46-116) U/L C-Reactive Protein 7.7 H (0.0-0.9) mg/dL Total Protein 6.5 (6.4-8.2) g/dL Albumin 2.6 L (3.4-5.0) g/dL Globulin 3.9 Albumin/Globulin Ratio 0.67 12/24/20 Range/Units 08:29 WBC (5.0-10.0) 10^3/uL RBC (4.6-6.2) 10^6/uL Hgb (14.0-18.0) g/dL Hct (40.0-54.0) % MCV (80-100) fL MCH (27.0-34.0) pg MCHC (33.0-35.0) g/dL Plt Count (150-450) 10^3/uL Neut % (Auto) (42.2-75.2) % Lymph % (Auto) (20.5-50.1) % Finney % (Auto) (2-8) % Eos % (Auto) (1.0-3.0) % Baso % (Auto) (0.0-1.0) % D-Dimer, Quantitative (0-400) ng/mL Sodium (136-145) mmol/L Potassium (3.5-5.1) mmol/L Chloride (98-107) mmol/L Carbon Dioxide (21-32) mmol/L Anion Gap (7-13) mEq/L BUN (7-18) mg/dL Creatinine (0.70-1.30) mg/dL Est Cr Clr Drug Dosing mL/min Estimated GFR (MDRD) BUN/Creatinine Ratio (No establ ref range) Glucose (70-99) mg/dL POC Glucose 114 H (70-99) mg/dL Calcium (8.5-10.1) mg/dL Total Bilirubin (0.2-1.0) mg/dL AST (15-37) U/L ALT (16-63) U/L Alkaline Phosphatase (46-116) U/L C-Reactive Protein (0.0-0.9) mg/dL Total Protein (6.4-8.2) g/dL Albumin (3.4-5.0) g/dL Globulin Albumin/Globulin Ratio Shine Results Last 24 Hours: Microbiology 12/18/20 23:35 Aerobic Blood Culture - Final Blood - Picc Line NO GROWTH AFTER 5 DAYS Anaerobic Blood Culture - Final NO GROWTH AFTER 5 DAYS 12/18/20 23:30 Aerobic Blood Culture - Final Blood - Picc Line NO GROWTH AFTER 5 DAYS Anaerobic Blood Culture - Final Med Orders - Current: Current Medications Acetaminophen (Acetaminophen 325 Mg Tab) 650 mg PO Q4H PRN PRN Reason: Pain (Mild 1-3)/fever Last Admin: 12/22/20 09:49 Dose: 650 mg Documented by: Albuterol (Albuterol 6.7 Gm Inhaler) 6.7 gm INH Q4H PRN PRN Reason: Shortness of Breath Amoxicillin/Clavulanate Potassium (Amoxicillin/Clavulanate K 875-125 Mg Tab) 1 tab PO Q12HR [facility] Last Admin: 12/24/20 08:34 Dose: 1 tab Documented by: Dexamethasone (Dexamethasone 4 Mg/Ml Sdv) 6 mg IVPUSH DAILY [facility] Stop: 12/27/20 09:01 Last Admin: 12/24/20 08:35 Dose: 6 mg Documented by: Dextrose/Water (50% Dextrose In Water 50 Ml Syringe) 50 ml IVPUSH Q15M PRN PRN Reason: Hypoglycemia Glucagon (Glucagon,Human Recombinant 1 Mg Vial) 1 mg IM Q15M PRN PRN Reason: Hypoglycemia Glucagon (Glucagon,Human Recombinant 1 Mg Vial) 1 mg IM Q15M PRN PRN Reason: Hypoglycemia Insulin Human Lispro (Insulin Lispro 100 Units/Ml 3 Ml Vial) 0 unit SUBCUT WITHMEALSANDBED [facility]; Protocol Last Admin: 12/24/20 08:32 Dose: Not Given Documented by: Lorazepam (Lorazepam 0.5 Mg Tab) 0.5 mg PO Q8H PRN PRN Reason: Anxiety Last Admin: 12/23/20 21:02 Dose: 0.5 mg Documented by: Losartan Potassium (Losartan 50 Mg Tab) 25 mg PO DAILY [facility] Last Admin: 12/23/20 08:35 Dose: 25 mg Documented by: Losartan Potassium (Losartan 25 Mg Tab) 25 mg PO DAILY [facility] Metformin HCl (Metformin 500 Mg Tab) 500 mg PO DAILY [facility] Last Admin: 12/23/20 15:57 Dose: 500 mg Documented by: Mometasone Furoate/Formoterol Fumar (Formoterol/Mometasone 200-5 Mcg 8.8 Gm Inhaler) 0 puff IH BID [facility] Last Admin: 12/24/20 08:32 Dose: 2 puff Documented by: Rivaroxaban (Rivaroxaban 10 Mg Tab) 10 mg PO WITHDINNER [facility] Last Admin: 12/23/20 17:36 Dose: 10 mg Documented by: Sertraline HCl (Sertraline 50 Mg Tab) 50 mg PO DAILY [facility] Last Admin: 12/24/20 08:35 Dose: 50 mg Documented by: Sodium Chloride (Sodium Chloride 0.9% 10 Ml Syringe) 10 ml FLUSH ASDIRECTED PRN PRN Reason: IV Use Last Admin: 12/22/20 13:12 Dose: 10 ml Documented by: Discontinued Medications Albuterol (Albuterol 0.083% 2.5 Mg/3 Ml Neb Soln) 2.5 mg NEB Q2H PRN PRN Reason: Wheezing Albuterol (Albuterol 6.7 Gm Inhaler) 0 gm INH Q4HR [facility] Albuterol/Ipratropium (Albuterol/Ipratropium 3.0-0.5 Mg/3 Ml Neb Soln) 3 ml NEB Q6HRRT [facility] Last Admin: 12/19/20 08:20 Dose: 3 ml Documented by: Enoxaparin Sodium (Enoxaparin 40 Mg/0.4 Ml Syringe) 40 mg SUBCUT DAILY [facility] Last Admin: 12/19/20 09:17 Dose: 40 mg Documented by: Enoxaparin Sodium (Enoxaparin 40 Mg/0.4 Ml Syringe) 40 mg SUBCUT Q12HR [facility] Last Admin: 12/21/20 08:27 Dose: 40 mg Documented by: Remdesivir 200 mg/ Sodium (Chloride) 250 mls @ 250 mls/hr IV ONETIME ONE Stop: 12/19/20 02:38 Last Admin: 12/19/20 03:03 Dose: 250 mls/hr Documented by: Remdesivir 100 mg/ Sodium (Chloride) 100 mls @ 100 mls/hr IV Q24H [facility] Stop: 12/23/20 09:59 Last Admin: 12/23/20 08:36 Dose: 100 mls/hr Documented by: Sterile Water (Sterile Water For Injection) Confirm Administered Dose 40 mls @ as directed .ROUTE .STK-MED ONE Stop: 12/19/20 02:38 Last Admin: 12/19/20 03:05 Dose: Not Given Documented by: Piperacillin Sod/Tazobactam (Sod 3.375 gm/ Sodium Chloride) 100 mls @ 200 mls/hr IV Q6H [facility] Last Infusion: 12/19/20 09:57 Dose: Infused Documented by: Piperacillin Sod/Tazobactam (Sod 3.375 gm/ Sodium Chloride) 100 mls @ 200 mls/hr IV Q6HR [facility] Last Admin: 12/23/20 12:20 Dose: 200 mls/hr Documented by: Insulin Glargine (Insulin Glarg,Human.Rec.Analog 100 Unit/Ml) 20 unit SUBCUT ONETIME ONE Stop: 12/23/20 17:18 Last Admin: 12/23/20 17:34 Dose: 20 unit Documented by: Insulin Human Lispro (Insulin Lispro 100 Units/Ml 3 Ml Vial) 0 unit SUBCUT TIDMEALS [facility]; Protocol Last Admin: 12/19/20 17:11 Dose: 1 units Documented by: Sodium Chloride (Sodium Chloride 0.9% 10 Ml Syringe) 10 ml IV ASDIRECTED PRN PRN Reason: Keep Vein Open Last Admin: 12/19/20 13:56 Dose: 10 ml Documented by: - Exam General: Alert, Oriented HEENT: Pupils Equal, Pupils Reactive, EOMI, Mucous Membr. Moist/[place] Neck: Supple Lungs: Clear to Auscultation, Normal Respiratory Effort, Decreased Breath Sounds Cardiovascular: Regular Rate, Regular Rhythm GI/Abdominal Exam: Normal Bowel Sounds, Soft, Non-Tender, No Organomegaly, No Distention, No Abnormal Bruit, No Mass, Pelvis Stable (Male) Exam: No Hernia, Normal Inspection, Normal Prostate, Circumcised Back Exam: Normal Inspection, Full Range of Motion Extremities: Normal Inspection, Normal Range of Motion, Non-Tender, No Pedal Edema, Normal Capillary Refill Skin: Warm, Dry, Intact Wound/Incisions: Healing Well Neurological: No New Focal Deficit Psy/Mental Status: Alert, Normal Affect, Normal Mood - Patient Data Lab Results Last 24 hrs: Laboratory Results - last 24 hr 12/23/20 12/23/20 12/23/20 Range/Units 12:18 14:45 14:45 WBC 6.6 (5.0-10.0) 10^3/uL RBC 4.95 (4.6-6.2) 10^6/uL Hgb 12.9 L (14.0-18.0) g/dL Hct 39.4 L (40.0-54.0) % MCV 79.6 L (80-100) fL MCH 26.1 L (27.0-34.0) pg MCHC 32.7 L (33.0-35.0) g/dL Plt Count 195 (150-450) 10^3/uL Neut % (Auto) 93.6 H (42.2-75.2) % Lymph % (Auto) 2.6 L (20.5-50.1) % Finney % (Auto) 3.3 (2-8) % Eos % (Auto) 0.5 L (1.0-3.0) % Baso % (Auto) 0.0 (0.0-1.0) % D-Dimer, Quantitative 301 (0-400) ng/mL Sodium (136-145) mmol/L Potassium (3.5-5.1) mmol/L Chloride (98-107) mmol/L Carbon Dioxide (21-32) mmol/L Anion Gap (7-13) mEq/L BUN (7-18) mg/dL Creatinine (0.70-1.30) mg/dL Est Cr Clr Drug Dosing mL/min Estimated GFR (MDRD) BUN/Creatinine Ratio (No establ ref range) Glucose (70-99) mg/dL POC Glucose 282 H (70-99) mg/dL Calcium (8.5-10.1) mg/dL Total Bilirubin (0.2-1.0) mg/dL AST (15-37) U/L ALT (16-63) U/L Alkaline Phosphatase (46-116) U/L C-Reactive Protein (0.0-0.9) mg/dL Total Protein (6.4-8.2) g/dL Albumin (3.4-5.0) g/dL Globulin Albumin/Globulin Ratio 12/23/20 12/23/20 12/23/20 Range/Units 14:45 16:01 20:57 WBC (5.0-10.0) 10^3/uL RBC (4.6-6.2) 10^6/uL Hgb (14.0-18.0) g/dL Hct (40.0-54.0) % MCV (80-100) fL MCH (27.0-34.0) pg MCHC (33.0-35.0) g/dL Plt Count (150-450) 10^3/uL Neut % (Auto) (42.2-75.2) % Lymph % (Auto) (20.5-50.1) % Finney % (Auto) (2-8) % Eos % (Auto) (1.0-3.0) % Baso % (Auto) (0.0-1.0) % D-Dimer, Quantitative (0-400) ng/mL Sodium 136 (136-145) mmol/L Potassium 4.3 (3.5-5.1) mmol/L Chloride 100 (98-107) mmol/L Carbon Dioxide 28 (21-32) mmol/L Anion Gap 12.3 (7-13) mEq/L BUN 23 H (7-18) mg/dL Creatinine 1.11 (0.70-1.30) mg/dL Est Cr Clr Drug Dosing 65.05 mL/min Estimated GFR (MDRD) > 60 BUN/Creatinine Ratio 20.7 (No establ ref range) Glucose 409 H* (70-99) mg/dL POC Glucose 292 H 192 H (70-99) mg/dL Calcium 8.6 (8.5-10.1) mg/dL Total Bilirubin 0.4 (0.2-1.0) mg/dL AST 43 H (15-37) U/L ALT 105 H (16-63) U/L Alkaline Phosphatase 71 (46-116) U/L C-Reactive Protein 7.7 H (0.0-0.9) mg/dL Total Protein 6.5 (6.4-8.2) g/dL Albumin 2.6 L (3.4-5.0) g/dL Globulin 3.9 Albumin/Globulin Ratio 0.67 /04/03 Range/Units 08:29 WBC (5.0-10.0) 10^3/uL RBC (4.6-6.2) 10^6/uL Hgb (14.0-18.0) g/dL Hct (40.0-54.0) % MCV (80-100) fL MCH (27.0-34.0) pg MCHC (33.0-35.0) g/dL Plt Count (150-450) 10^3/uL Neut % (Auto) (42.2-75.2) % Lymph % (Auto) (20.5-50.1) % Finney % (Auto) (2-8) % Eos % (Auto) (1.0-3.0) % Baso % (Auto) (0.0-1.0) % D-Dimer, Quantitative (0-400) ng/mL Sodium (136-145) mmol/L Potassium (3.5-5.1) mmol/L Chloride (98-107) mmol/L Carbon Dioxide (21-32) mmol/L Anion Gap (7-13) mEq/L BUN (7-18) mg/dL Creatinine (0.70-1.30) mg/dL Est Cr Clr Drug Dosing mL/min Estimated GFR (MDRD) BUN/Creatinine Ratio (No establ ref range) Glucose (70-99) mg/dL POC Glucose 114 H (70-99) mg/dL Calcium (8.5-10.1) mg/dL Total Bilirubin (0.2-1.0) mg/dL AST (15-37) U/L ALT (16-63) U/L Alkaline Phosphatase (46-116) U/L C-Reactive Protein (0.0-0.9) mg/dL Total Protein (6.4-8.2) g/dL Albumin (3.4-5.0) g/dL Globulin Albumin/Globulin Ratio Result Diagrams: 12/23/20 14:45 12/23/20 14:45 Shine Results Last 24 hrs: Microbiology 12/18/20 23:35 Aerobic Blood Culture - Final Blood - Picc Line NO GROWTH AFTER 5 DAYS Anaerobic Blood Culture - Final NO GROWTH AFTER 5 DAYS 12/18/20 23:30 Aerobic Blood Culture - Final Blood - Picc Line NO GROWTH AFTER 5 DAYS Anaerobic Blood Culture - Final Sepsis Event Note - Evaluation Sepsis Screening Result: No Definite Risk - Focused Exam Vital Signs: Vital Signs Temp Pulse Resp BP Pulse Ox 12/24/20 08:00 36.4 C 68 22 H 150/86 H 91 L 12/24/20 04:00 36.3 C 72 20 133/82 93 L 12/24/20 00:00 80 21 H 92 L - Problem List & Annotations (1) COVID SNOMED Code(s): 059467439 Code(s): U07.1 - COVID-19 Status: Acute Priority: Medium Current Visit: No Onset Date: ~12/07/20 Annotation/Comment:: better see note. 12/22/20 slow improvment no weaning . doing better weaning. 12/24/20 down to 50% 30 liter flow rate (2) Hx of cancer of lung SNOMED Code(s): 444738218, 746137925 Code(s): Z85.118 - PERSONAL HISTORY OF MALIGNANT NEOPLASM OF BRONCHUS AND LUNG Status: Acute Priority: Medium Current Visit: No Onset Date: ~12/20/20 Annotation/Comment:: starting augmetnin x 5 days (3) Hypoxia SNOMED Code(s): 747100507 Code(s): R09.02 - HYPOXEMIA Status: Acute Priority: Medium Current Visit: No Onset Date: ~12/20/20 Annotation/Comment:: 50% flow rate30 liters (4) Thrombocytopenia SNOMED Code(s): 770448486 Code(s): D69.6 - THROMBOCYTOPENIA, UNSPECIFIED Status: Acute Priority: Low Current Visit: Yes Onset Date: ~12/19/20 Annotation/Comment:: resolving. (5) Elevated LFTs SNOMED Code(s): 268502410 Code(s): R79.89 - OTHER SPECIFIED ABNORMAL FINDINGS OF BLOOD CHEMISTRY Status: Acute Priority: Medium Current Visit: Yes Onset Date: ~12/19/20 Annotation/Comment:: day 5 remdisavir/dexamethasone - Problem List Review Problem List Initiated/Reviewed/Updated: Yes - My Orders Last 24 Hours: My Active Orders 12/23/20 13:00 metFORMIN [Glucophage] 500 mg PO DAILY 12/23/20 17:17 Glucagon,Human Recombinant [GlucaGen] 1 mg IM Q15M PRN 12/23/20 21:00 Amoxicillin/Clavulanate K [Augmentin 875 MG/125 MG] 1 tab PO Q12HR 12/24/20 09:00 Losartan [Cozaar] 25 mg PO DAILY - Assessment Assessment:: 12/24/20 afebrile// vss feeling better / eating better. no new pains or complaints. slept fair. p.e. gen normal// no jaundice or abd pain . lungs clear and decreased.less wob currently 50% fio2 at 30 liters with sats 90-95% cor rrr abd benign. neuro clear and oriented. skin normal . boh lab: improved throughout. hgn stable /platlets stable wbc normal. lytes stable/ lfts stable b.s high and gen lantus 20 units and fbs this am form 340 to 124. assess:plan 1// covid day 13-14 doing better and agreesive weaning as tolerated switch to n.c. if able . day 5 remdesivir and dexamethasone. 2// secondary diabetes improved with daily Lantus will cont x 24 hours. restarted low dose metformin / increase dose if tolerated. 3// dc plans for mon//tu. dc if cont to improve with or without home o2 to be determined. 4// zosyn dced and now on augmentin and cont. x 5 day for 10 day course for clinical sec pneumonia. 5// lung ca stable . pulm fibrosis stable on hhn.increase activity and rehab. elavated d dimer >2100 and will cont Xarelto x 3 months 6// mild anemia tracking boh - Plan Plan:: 65-year-old male with significant pulmonary comorbidities including bilateral pulmonary neoplasms status post chemotherapy, radiation, immunotherapy and lobectomy who presented with acute hypoxic respiratory failure secondary to COVID-19 pneumonia. Acute hypoxic respiratory failure secondary to COVID-19 pneumonia/ARDS -Noted groundglass opacities in multiple lung elder with positive covid test on 12/09/20 - overall consistent with COVID-19 pneumonia in a background of interstitial fibrosis likely secondary to patient's recent lung cancer treatments, right upper lobe mass also noted on CT scan with patient's known non-small cell lung cancer -Patient is requiring initially nonrebreather and now high flow nasal cannula, current FiO2 is 80% - PA FiO2 ratio less than 100, patient meets criteria for severe ARDS - continuous pulse oximetry, telemetry monitoring -We will initiate treatment dexamethasone 6 mg daily for 10 days of treatment, remdesivir 200 mg initial with 100 mg daily - daily ALT level while on remdesivir - d/c if ALT >5x upper limit of normal -discussed the benefits and risks of remdesivir treatment patient was agreeable -Scheduled DuoNeb, albuterol nebulizer as needed -Self proning as tolerated -Zosyn for any superimposed bacterial pneumonia concerns -Overall patient is significantly poor prognosis, had prolonged discussion about CODE STATUS -at this point patient wishes to be full code despite the low chance of survival given his non-small cell lung cancer, history of lobectomy and severe ARDS secondary to COVID-19 pneumonia Diabetes mellituswell controlled on Metformin, hold Metformin, twice daily glucose checks for now, may need setting scale insulin given likely hyperglycemia with steroid administration Hypertensioncontinue losartan as studies have shown ours to be potentially beneficial Anxiety/depressioncontinue sertraline, ordered 0.5 mg Ativan every 8 hour for anxiety due to dyspnea Fluidsnone Electrolyteswithin normal lites Dietn.p.o. for now given respiratory status DVT prophylaxis Lovenox. 12/20/20 afebrile/vss on high flow 80% down to 7 liter flow // tolerating prone . desats hard when walking to b.r. no chest pain . slept fair. appetite poor. i/os normal voiding patterns. lab reviewed p.e. lungs decreased throughout but clear. no ronchii or rales. abd benign cor rrr 110 /sats 92-96% at rest . no edema feet well perfused . assess. covid syndrome on high flow 80 to 75 /o2 o2 .6.. day 13 by symptoms count . cont current support and wean as tolerated. b.s tolerable. boh 12/21/20 afebrile vss o2 at 70% with 30 liters flow rate. slept fair . mild chest discomfort now better(with deep breathes being easier)/ cough mild.no pleuritic or cardiac pain. appetite poor. b.s stable taking glucerna. day 2 remdesivier.// steriods // high flow o2// hhn. p.e. bs better with better air exchange.no ronchii or rales. decreased rt posterior lobe (lobectomy) resting rr 20 cor:rrr 100-110 no murmur s3/s4 abd benign m.s benign. neuro:more alert and interactive.aox4 assess:plan 1// covid day 12 or 13 ding better turning corner slowly // day 2 remdesivier and hgih flow o2 day 5 . anticipate weaning today and over next few days. 2// p.e. prophylaxis started oral xaralto sec to high d dimer. no signs of organ failure or cv compromise,euvolemic 3// anorexia slowly resolving. 4// dm stable. 5// lung cancer and pneumonia day 5 ? repeat xray or cont emperic treatment for few more days and dc . 6// home going possible over weekend or early next week . boh 12/21/20 afebrile vss o2 at 70% with 30 liters flow rate. slept fair . mild chest discomfort now better(with deep breathes being easier)/ cough mild.no pleuritic or cardiac pain. appetite poor. b.s stable taking glucerna. day 2 remdesivier.// steriods // high flow o2// hhn. p.e. bs better with better air exchange.no ronchii or rales. decreased rt posterior lobe (lobectomy) resting rr 20 cor:rrr 100-110 no murmur s3/s4 abd benign m.s benign. neuro:more alert and interactive.aox4 assess:plan 1// covid day 12 or 13 ding better turning corner slowly // day 2 remdesivier and hgih flow o2 day 5 . anticipate weaning today and over next few days. 2// p.e. prophylaxis started oral xaralto sec to high d dimer. no signs of organ failure or cv compromise,euvolemic 3// anorexia slowly resolving. 4// dm stable. 5// lung cancer and pneumonia day 5 ? repeat xray or cont emperic treatment for few more days and dc . 6// home going possible over weekend or early next week . boh 12/22/20 afebrile good night /slept fair.desats to mid 80S and o2 increased to 80% and 30 liters air flow. feels comfortable and sitting in chair.sats 94% hr100// rr 20 eating better// no n/v .voiding well . no pain really . p.e. lungs decreased slightly rt base and fair otherwise. no rales or ronchii no increased wob cor rrr without murmur / no chest wall pain . abd benign neuro aox 4 and good awareness/[place] easily . lab lfts remain elevated but stable. day 3 remdesivir/ day 3 zosyn// day 3 high flow o2 with nebs. assess: 1// covid stable but not weaning yesterday and again looks and feels better but slowly improving . cont . current treatments . o2 at 30 liters flow and 80 %fio2. 2//pneumonia: on Zosyn and will cont . limit xrays sec to exposure.hgigher risk for sepsis sec to lung ca recurrance ad fibrosis likely will need o2 home therapy sith slow progress during recovery . 3//lung ca no change in status. 4//nutrition : improving appetite. 5// weakness still prominent but starting to improve. tolerates non prone positions better. in chair and comfortable. boh 12/23/20* afebrile // vss tachycardia and tachypnea improved. fio2 80 to 62% high flow 30 liters. sats mid 90s and wob easier. p.e. unchanged. assess: plan 1// covid improving and will wean aggressively as tolerated today. 2// elevated d dimer : on Xarelto and tracking.discussed anticoag. recommendations and cont x 3 months. 3// elevated b.s : sec to steroids day 4 remdisivir /zosyn and dexamethasone and treat with insulin sliding scale as appetite improving. 4// elevated lfts: sec to unknown causes plus remdisivir .cont monitors stable since started. 5// pneumonia : day 4 zosyn and will cont today and switch in am if clinically improving. 6// copd/pulm fibrosis: stable ,cont . current hhn. 7// bone marrow suppression: wbc stable/hgn stable/ mild thrombocytopenia monitoring. 8// home going status: dc planing likely on o2 and in next 72-96 hours if cont. to improve. boh 12/24/20 afebrile// vss feeling better / eating better. no new pains or complaints. slept fair. p.e. gen normal// no jaundice or abd pain . lungs clear and decreased.less wob currently 50% fio2 at 30 liters with sats 90-95% cor rrr abd benign. neuro clear and oriented. skin normal . boh lab: improved throughout. hgn stable /platlets stable wbc normal. lytes stable/ lfts stable b.s high and gen lantus 20 units and fbs this am form 340 to 124. assess:plan 1// covid day 13-14 doing better and agreesive weaning as tolerated switch to n.c. if able . day 5 remdesivir and dexamethasone. 2// secondary diabetes improved with daily Lantus will cont x 24 hours. restarted low dose metformin / increase dose if tolerated. 3// dc plans for mon//tu. dc if cont to improve with or without home o2 to be determined. 4// zosyn dced and now on augmentin and cont. x 5 day for 10 day course for clinical sec pneumonia. 5// lung ca stable . pulm fibrosis stable on hhn.increase activity and rehab. elavated d dimer >2100 and will cont Xarelto x 3 months 6// mild anemia [id number]
[2020-12-24] MEDS ORDERED: Losartan 50 MG Tab PO ONE (12:00)
[2020-12-24] MEDS: Losartan 50 MG Tab PO SCH (12:02)
[2020-12-24] MEDS: Rivaroxaban 10 MG Tab PO SCH (19:45)
[2020-12-24] MEDS: Acetaminophen 325 MG Tab PO PRN (21:06)
[2020-12-24] MEDS: LORazepam 0.5 MG Tab PO PRN (21:07)
[2020-12-24] MEDS: Sodium Chloride 0.9% 10 ML Syringe FLUSH PRN (21:09)
[2020-12-25] MEDS: metFORMIN 500 MG Tab PO SCH (08:07)
[2020-12-25] MEDS: Sertraline 50 MG Tab PO SCH (08:08)
[2020-12-25] MEDS: Amoxicillin/Clavulanate K 875-125 MG Tab PO SCH (08:08)
[2020-12-25] MEDS: Formoterol/Mometasone 200-5 MCG 8.8 GM Inhaler IH SCH (08:09)
[2020-12-25] MEDS: Dexamethasone 4 MG/ML SDV IVPUSH SCH (08:11)
[2020-12-25] MEDS: Sodium Chloride 0.9% 10 ML Syringe FLUSH PRN (08:13)
[2020-12-25] MEDS: Insulin Lispro 100 Units/ML 3 ML Vial SUBCUT SCH ×2 (08:22→12:22)
[2020-12-25] MEDS ORDERED: Losartan 50 MG Tab PO SCH (09:00)
--- NOTE | 2020-12-25 11:05 | PCM.DCSUM1 ---
Discharge Summary - Hospital Course Free Text/Narrative:: 12/25/20 afebrile/vss //nasal can 4 liters at rest and sat 90-96% // rr 18 // hr 90-100. feels good // eating well// walking in room . no pains. no nausea and john resolving some. still desats with activity. lungs clearer with good air exchange bilaterally. no increased wob cor rrr no murmur s3/4 abd benign. neuro sharp. skin normal lab trending down , d dimer 340 , redrawn today for lfts and routine labs. pending. follow up with primary oncology in one week. cont o2 at home and taper as able. cont anticoag x 3 months unless dced by primary. avoid asa and ansaids. reviewed dc plans with patient and he is agreeable to all plans ad happy . boh HPI Initial Comments: Jimmy [facility]IVE Admission History & Physical Patient Name: SOFIA CAMACHO Date of : 1955 Patient Status: Inpatient Attending Provider: Abdiaziz Kimbrough Date: 12/19/20 01:41 Initialization Date: 12/19/20 01:41 H&P History of Present Illness - General Date of Service: 12/19/20 Admit Problem/Dx: Admission Diagnosis/Problem Admission Diagnosis/Problem Hypoxia Source of Information: Patient, EMS, EMS Notes Reviewed, Family - History of Present Illness Initial Comments - Free Text/Narative: Patient is a 65-year-old male with a past medical history of bilateral separate non-small cell lung cancer status post lobectomy, chemotherapy, radiation, immunotherapy, hypertension who presented with shortness of breath after COVID- 19 diagnosis. Patient states that he was exposed to COVID-19 pneumonia by family member. Patient states he first noticed worsening shortness of breath on 12-08-20. Patient tested positive for COVID-19 on 12-09-20. Patient states he had progressive worsening shortness of breath since the and he even borrowed a family member's oxygen concentrator. Patient states he does not use oxygen at baseline. Patient dates that he came in tonight because despite the supplemental oxygen he continued or worsening shortness of breath. He denies any fevers, chest pains, lower extremity swelling, headaches, vision changes, focal weakness or numbness. Patient presented the emergency department he was significantly hypoxic and required a nonrebreather to maintain oxygen saturations. Vital signs otherwise stable. Laboratory studies included a sodium 130, potassium 3.7, creatinine 0.98, white count 4.1, hemoglobin 13, platelet 122, AST 69, ALT 163, CRP 2.6, INR 1.0, troponin , D-dimer 682, lactic acid 2.3. ABG was obtained which showed pH of 7.45, PCO2 of 38, PO2 of 64. CT chest was obtained which showed patient's known right upper lobe mass, interstitial fibrosis, pretracheal lymph nodes, no pleural effusion was noted, groundglass opacities noted in the right middle lobe, left upper lobe, left lower lobe. Patient was admitted for further evaluation. I initially placed patient on a high flow nasal cannula 80% FiO2 he was maintaining oxygen saturations. I had a prolonged discussion with the patient regarding his COVID- 19 pneumonia diagnosis, his significant comorbidities with his lung cancer history. Patient maintained that he wished to be full code at this time. Patient states that he is not sure what the next step for his cancer treatment is and states that he did have a trial of immunotherapy which he had a reaction to. - Related Data Allergies/Adverse Reactions: Allergies Allergy/AdvReac Type Severity Reaction Status Date / Time cephalexin [Cephalexin] Allergy Rash Verified 12/10/20 10:34 other environmental related Allergy Cannot Uncoded 05/12/20 21:29 things Remember Home Medications: Home Meds Budesonide/Formoterol [Symbicort 160-4.5 MCG] 4.5 - 160 mcg INH BID 03/17/13 [History] Losartan [Cozaar] 25 mg PO DAILY 03/17/13 [History] Sertraline [Zoloft] 50 mg PO DAILY 03/17/13 [History] Albuterol [Proair HFA] 108 mcg INH DAILY 04/29/17 [History] metFORMIN [Glucophage] 500 mg PO DAILY 04/29/17 [History] Past Medical History - Past Health History Medical/Surgical History: Denies Medical/Surgical History HEENT History: Reports: Cataract, Impaired Vision Cardiovascular History: Reports: Hypertension Respiratory History: Reports: Asthma, COPD Other Respiratory History: stage 3 lung cancer Gastrointestinal History: Reports: Chronic Diarrhea, GERD, Irritable Bowel Syndrome, Other (See Below) Other Gastrointestinal History: COLITIS Genitourinary History: Reports: None Musculoskeletal History: Reports: None Neurological History: Reports: None Psychiatric History: Reports: Depression Endocrine/Metabolic History: Reports: Diabetes, Type II Hematologic History: Reports: Anemia Immunologic History: Reports: None Oncologic (Cancer) History: Reports: Lung, Lymphoma Dermatologic History: Reports: None - Infectious Disease History Infectious Disease History: Reports: Chicken Pox, Measles, Mumps - Past Surgical History Head Surgeries/Procedures: Reports: None HEENT Surgical History: Reports: Cataract Surgery, Tonsillectomy Cardiovascular Surgical History: Reports: None Respiratory Surgical History: Reports: Lung Resection, Thoracotomy, Other (See Below) Other Respiratory Surgeries/Procedures: left lobe resection GI Surgical History: Reports: Cholecystectomy, Colonoscopy Other Oncologic Surgeries/Procedures: states dx in 2019. Follow up with PET scans. Social & Family History - Family History Family Medical History: No Pertinent Family History HEENT: Reports: Glaucoma Cardiac: Reports: Hypertension Respiratory: Reports: Other (See Below) Other Respiratory Family Hisory: emphysema GI: Reports: Colon Polyps - Tobacco Use Tobacco Use Status *Q: Never Tobacco User Second Hand Smoke Exposure: No - Caffeine Use Caffeine Use: Reports: Coffee - Living Situation & Occupation Living situation: Reports: with Family H&P Review of Systems - Review of Systems: Review Of Systems: Comprehensive ROS is negative, except as noted in HPI. Exam - Exam Exam: See Below - Vital Signs Vital Signs: Last Vital Signs Temp 97.6 F 12/18/20 23:25 Pulse 118 H 12/18/20 23:25 Resp 24 H 12/18/20 23:25 BP 134/89 12/18/20 23:25 Pulse Ox Weight: 184 lb - Exam Quality Assessment: Other (Patient is on high flow nasal cannula) General: Alert, Oriented HEENT: Conjunctiva Clear Neck: Supple, Trachea Midline Lungs: Decreased Breath Sounds (Significantly decreased breath sounds bilaterally, crackles noted in right mid and lower lung, patient in obvious respiratory distress on high flow nasal cannula), Crackles Cardiovascular: Regular Rhythm, Tachycardia GI/Abdominal Exam: Normal Bowel Sounds, Soft Extremities: Normal Inspection Peripheral Pulses: 2+: Radial (L), Radial (R) Skin: Warm, Dry Neurological: Cranial Nerves Intact Neuro Extensive - Mental Status: Alert, Oriented x3 Neuro Extensive - Motor, Sensory, Reflexes: CN II-XII Intact Psychiatric: Alert, Normal Affect - Patient Data Lab Results Last 24 hrs: Laboratory Results - last 24 hr 12/18/20 12/18/20 12/18/20 Range/Units 23:30 23:30 23:30 WBC 4.1 L (5.0-10.0) 10^3/uL RBC 5.08 (4.6-6.2) 10^6/uL Hgb 13.3 L (14.0-18.0) g/dL Hct 40.6 (40.0-54.0) % MCV 79.9 L (80-100) fL MCH 26.2 L (27.0-34.0) pg MCHC 32.8 L (33.0-35.0) g/dL Plt Count 122 L (150-450) 10^3/uL Neut % (Auto) 90.3 H (42.2-75.2) % Lymph % (Auto) 2.9 L (20.5-50.1) % [place] % (Auto) 6.6 (2-8) % Eos % (Auto) 0.2 L (1.0-3.0) % Baso % (Auto) 0.0 (0.0-1.0) % PT (9.0-12.0) SEC INR (0.9-1.2) D-Dimer, Quantitative (0-400) ng/mL ABG pH (7.35-7.45) ABG pCO2 (35-45) mmHg ABG pO2 (70-100) mmHg ABG HCO3 (22-26) mmol/L ABG O2 Saturation (95-100) % ABG Base Excess ((-2)-(+3)) mmol/L Rishabh Test O2 Delivery Device Sodium 130 L (136-145) mmol/L Potassium 3.7 (3.5-5.1) mmol/L Chloride 98 (98-107) mmol/L Carbon Dioxide 29 (21-32) mmol/L Anion Gap 6.7 L (7-13) mEq/L BUN 16 (7-18) mg/dL Creatinine 0.98 (0.70-1.30) mg/dL Est Cr Clr Drug Dosing 73.67 mL/min Estimated GFR (MDRD) > 60 BUN/Creatinine Ratio 16.3 (No establ ref range) Glucose 245 H (70-99) mg/dL Lactic Acid 2.3 H* (0.4-2.0) mmol/L Calcium 8.7 (8.5-10.1) mg/dL Magnesium 1.8 (1.8-2.4) mg/dL Total Bilirubin 0.4 (0.2-1.0) mg/dL AST 69 H (15-37) U/L ALT 163 H (16-63) U/L Alkaline Phosphatase 78 (46-116) U/L Troponin I High Sens 6 (<=76) pg/mL C-Reactive Protein (0.0-0.9) mg/dL Total Protein 7.0 (6.4-8.2) g/dL Albumin 3.0 L (3.4-5.0) g/dL Globulin 4.0 Albumin/Globulin Ratio 0.75 12/18/20 12/19/20 12/19/20 Range/Units 23:30 00:14 23:30 WBC (5.0-10.0) 10^3/uL RBC (4.6-6.2) 10^6/uL Hgb (14.0-18.0) g/dL Hct (40.0-54.0) % MCV (80-100) fL MCH (27.0-34.0) pg MCHC (33.0-35.0) g/dL Plt Count (150-450) 10^3/uL Neut % (Auto) (42.2-75.2) % Lymph % (Auto) (20.5-50.1) % [place] % (Auto) (2-8) % Eos % (Auto) (1.0-3.0) % Baso % (Auto) (0.0-1.0) % PT 9.7 (9.0-12.0) SEC INR 1.0 (0.9-1.2) D-Dimer, Quantitative 682 H (0-400) ng/mL ABG pH 7.45 (7.35-7.45) ABG pCO2 38 (35-45) mmHg ABG pO2 64 L (70-100) mmHg ABG HCO3 26.2 H (22-26) mmol/L ABG O2 Saturation 93 L (95-100) % ABG Base Excess 3 ((-2)-(+3)) mmol/L Rishabh Test Positive O2 Delivery Device Om Sodium (136-145) mmol/L Potassium (3.5-5.1) mmol/L Chloride (98-107) mmol/L Carbon Dioxide (21-32) mmol/L Anion Gap (7-13) mEq/L BUN (7-18) mg/dL Creatinine (0.70-1.30) mg/dL Est Cr Clr Drug Dosing mL/min Estimated GFR (MDRD) BUN/Creatinine Ratio (No establ ref range) Glucose (70-99) mg/dL Lactic Acid (0.4-2.0) mmol/L Calcium (8.5-10.1) mg/dL Magnesium (1.8-2.4) mg/dL Total Bilirubin (0.2-1.0) mg/dL AST (15-37) U/L ALT (16-63) U/L Alkaline Phosphatase (46-116) U/L Troponin I High Sens (<=76) pg/mL C-Reactive Protein 2.6 H (0.0-0.9) mg/dL Total Protein (6.4-8.2) g/dL Albumin (3.4-5.0) g/dL Globulin Albumin/Globulin Ratio Result Diagrams: 12/18/20 23:30 12/18/20 23:30 Shine Results Last 24 hrs: Microbiology 12/18/20 23:30 Anaerobic Blood Culture - Final Blood - Picc Line - Problem List (1) COVID SNOMED Code(s): 217590266 ICD Code: U07.1 - COVID-19 Status: Acute Current Visit: No (2) Hx of cancer of lung SNOMED Code(s): 191830970, 379909104 ICD Code: Z85.118 - PERSONAL HISTORY OF MALIGNANT NEOPLASM OF BRONCHUS AND LUNG Status: Acute Current Visit: No (3) Hypoxia SNOMED Code(s): 623460826 ICD Code: R09.02 - HYPOXEMIA Status: Acute Current Visit: No (4) ARDS (adult respiratory distress syndrome) SNOMED Code(s): 87354493, 46194163 ICD Code: J80 - ACUTE RESPIRATORY DISTRESS SYNDROME Status: Acute Current Visit: Yes Problem List Initiated/Reviewed/Updated: Yes Orders Last 24hrs: Active Orders 24 hr Category Date Time Status Admission Diagnosis [ADT] Stat ADT 12/19/20 00:57 Ordered Admission Status [Patient Status] [ADT] Routine ADT 12/19/20 00:57 Active Blood Glucose Check, Bedside [] BIDMEALS Care 12/19/20 01:36 Ordered Nurse Communication: Isolation [RC] ASDIRECTED Care 12/19/20 01:40 Ordered Oxygen Therapy [RC] PRN Care 12/19/20 01:36 Ordered Up With Assistance [RC] ASDIRECTED Care 12/19/20 01:36 Ordered VTE/DVT Education [RC] PER UNIT ROUTINE Care 12/19/20 01:36 Ordered Vital Signs [RC] Q4H Care 12/19/20 01:36 Ordered Nothing per Oral Now Diet [DIET] Diet 12/19/20 Breakfast Ordered BILIRUBIN DIRECT [CHEM] DAILY Lab 12/19/20 01:45 Stop Req CULTURE BLOOD [BC] Stat Lab 12/18/20 23:30 Results CULTURE BLOOD [BC] Stat Lab 12/18/20 23:35 Received Acetaminophen [TylenoL] Med 12/19/20 01:36 Ordered 650 mg PO Q4H PRN Enoxaparin [Lovenox] Med 12/19/20 09:00 Ordered 40 mg SUBCUT DAILY Remdesivir 100 mg Med 12/20/20 09:00 Ordered Sodium Chloride 0.9% [Normal Saline] 100 ml IV Q24H Remdesivir 200 mg Med 12/19/20 01:39 Ordered Sodium Chloride 0.9% [Normal Saline] 250 ml IV ONETIME dexAMETHasone [Decadron] Med 12/19/20 01:45 Ordered 6 mg IVPUSH DAILY Blood Culture x2 Reflex Set [OM.PC] Stat Oth 12/18/20 23:39 Ordered Isolation [COMM] Stat Oth 12/19/20 01:39 Ordered Code Status [Resuscitation Status] Stat Resus Stat 12/19/20 00:45 Ordered Medication Orders Acetaminophen (Acetaminophen 325 Mg Tab) 650 mg PO Q4H PRN PRN Reason: Pain (Mild 1-3)/fever Dexamethasone (Dexamethasone 4 Mg/Ml Sdv) 6 mg IVPUSH DAILY IKER Stop: 12/27/20 09:01 Enoxaparin Sodium (Enoxaparin 40 Mg/0.4 Ml Syringe) 40 mg SUBCUT DAILY IKER Remdesivir 200 mg/ Sodium (Chloride) 250 mls @ 250 mls/hr IV ONETIME ONE Stop: 12/19/20 02:38 Remdesivir 100 mg/ Sodium (Chloride) 100 mls @ 100 mls/hr IV Q24H IKER Stop: 12/23/20 09:59 Assessment/Plan Comment:: 65-year-old male with significant pulmonary comorbidities including bilateral pulmonary neoplasms status post chemotherapy, radiation, immunotherapy and lobectomy who presented with acute hypoxic respiratory failure secondary to COVID-19 pneumonia. Acute hypoxic respiratory failure secondary to COVID-19 pneumonia/ARDS -Noted groundglass opacities in multiple lung elder with positive covid test on 12/09/20 - overall consistent with COVID-19 pneumonia in a background of interstitial fibrosis likely secondary to patient's recent lung cancer treatments, right upper lobe mass also noted on CT scan with patient's known non-small cell lung cancer -Patient is requiring initially nonrebreather and now high flow nasal cannula, current FiO2 is 80% - PA FiO2 ratio less than 100, patient meets criteria for severe ARDS - continuous pulse oximetry, telemetry monitoring -We will initiate treatment dexamethasone 6 mg daily for 10 days of treatment, remdesivir 200 mg initial with 100 mg daily - daily ALT level while on remdesivir - d/c if ALT >5x upper limit of normal -discussed the benefits and risks of remdesivir treatment patient was agreeable -Scheduled DuoNeb, albuterol nebulizer as needed -Self proning as tolerated -Zosyn for any superimposed bacterial pneumonia concerns -Overall patient is significantly poor prognosis, had prolonged discussion about CODE STATUS -at this point patient wishes to be full code despite the low chance of survival given his non-small cell lung cancer, history of lobectomy and severe ARDS secondary to COVID-19 pneumonia Diabetes mellituswell controlled on Metformin, hold Metformin, twice daily glucose checks for now, may need setting scale insulin given likely hyperglycemia with steroid administration Hypertensioncontinue losartan as studies have shown ours to be potentially beneficial Anxiety/depressioncontinue sertraline, ordered 0.5 mg Ativan every 8 hour for anxiety due to dyspnea Fluidsnone Electrolyteswithin normal lites Dietn.p.o. for now given respiratory status DVT prophylaxis Lovenox Diagnosis: Stroke: No Modified [place] Scale: No Symptoms at All Modified [place] Scale Score: 0 - Discharge Data Discharge Date: 12/25/20 Discharge Disposition: Home, Self-Care 01 Condition: Good - Referral to Home Health Primary Care Physician: PCP None - Discharge Diagnosis/Problem(s) (1) COVID SNOMED Code(s): 638503635 ICD Code: U07.1 - COVID-19 Status: Acute Priority: Low Current Visit: No Onset Date: ~12/07/20 Problem Details: better see note. 12/22/20 slow improvment no weaning . doing better weaning. 12/24/20 down to 50% 30 liter flow rate on o2 4 liters and doing well day 5 remdisivir completed/ dexday 8 cont x 2 more days at home. (2) Hx of cancer of lung SNOMED Code(s): 389430290, 055604584 ICD Code: Z85.118 - PERSONAL HISTORY OF MALIGNANT NEOPLASM OF BRONCHUS AND LUNG Status: Acute Priority: Medium Current Visit: No Onset Date: ~12/20/20 Problem Details: starting augmetnin x 5 days complete 3 more days (3) Hypoxia SNOMED Code(s): 597340107 ICD Code: R09.02 - HYPOXEMIA Status: Acute Priority: Low Current Visit: No Onset Date: ~12/20/20 Problem Details: 50% flow rate30 liters. 4 liters sats mid 90s lung sounds better (4) Thrombocytopenia SNOMED Code(s): 857209823 ICD Code: D69.6 - THROMBOCYTOPENIA, UNSPECIFIED Status: Acute Priority: Low Current Visit: Yes Onset Date: ~12/19/20 Problem Details: resolving. (5) Elevated LFTs SNOMED Code(s): 522837754 ICD Code: R79.89 - OTHER SPECIFIED ABNORMAL FINDINGS OF BLOOD CHEMISTRY Status: Acute Priority: Medium Current Visit: Yes Onset Date: ~12/19/20 Problem Details: day 5 remdisavir/dexamethasone/ lfts stable - Patient Instructions Diet: Usual Diet as Tolerated Activity: As Tolerated Driving: Do Not Drive Notify Provider of: Fever - Discharge Plan *PRESCRIPTION DRUG MONITORING PROGRAM REVIEWED*: No *COPY OF PRESCRIPTION DRUG MONITORING REPORT IN PATIENT ERIN: No Prescriptions/Med Rec: Losartan [Cozaar] 50 mg PO DAILY #30 tablet dexAMETHasone [Decadron] 6 mg PO DAILY 2 Days #2 tab metFORMIN [Glucophage] 500 mg PO BIDMEALS #60 Rivaroxaban [Xarelto] 10 mg PO WITHDINNER #30 tablet Sertraline [Zoloft] 50 mg PO DAILY #90 Home Medications: Home Meds Budesonide/Formoterol [Symbicort 160-4.5 MCG] 2 inh PO BID 03/17/13 [History] Albuterol [Proair HFA] 2 inh PO Q4H PRN 04/29/17 [History] Losartan [Cozaar] 50 mg PO DAILY #30 tablet 12/25/20 [Rx] Rivaroxaban [Xarelto] 10 mg PO WITHDINNER #30 tablet 12/25/20 [Rx] Sertraline [Zoloft] 50 mg PO DAILY #90 12/25/20 [Rx] dexAMETHasone [Decadron] 6 mg PO DAILY 2 Days #2 tab 12/25/20 [Rx] metFORMIN [Glucophage] 500 mg PO BIDMEALS #60 12/25/20 [Rx] Oxygen Therapy Mode: Nasal Cannula Oxygen Flow Rate (L/min): 4 Forms: ED Department Discharge Referrals: PCP,None [Primary Care Provider] - - Discharge Summary/Plan Comment DC Time >30 min.: Yes Total # of Minutes for Discharge Time: 40 minutes Discharge Summary/Plan Comment: f/u with primary and oncology withen week and stop meds augmentin and dexamethasone when out . cont nebs as before and prn. limit activity. cont anticoagulation - General Info Date of Service: 12/25/20 Admission Dx/Problem (Free Text: covid with pneumonia/resp failure [place] [facility] Admission History & Physical Patient Name: SOFIA CAMACHO Date of : 1955 Patient Status: Inpatient Attending Provider: Abdiaziz Kimbrough Date: 12/19/20 01:41 Initialization Date: 12/19/20 01:41 H&P History of Present Illness - General Date of Service: 12/19/20 Admit Problem/Dx: Admission Diagnosis/Problem Admission Diagnosis/Problem Hypoxia Source of Information: Patient, EMS, EMS Notes Reviewed, Family - History of Present Illness Initial Comments - Free Text/Narative: Patient is a 65-year-old male with a past medical history of bilateral separate non-small cell lung cancer status post lobectomy, chemotherapy, radiation, immunotherapy, hypertension who presented with shortness of breath after COVID- 19 diagnosis. Patient states that he was exposed to COVID-19 pneumonia by family member. Patient states he first noticed worsening shortness of breath on 12-08-20. Patient tested positive for COVID-19 on 12-09-20. Patient states he had progressive worsening shortness of breath since the and he even borrowed a family member's oxygen concentrator. Patient states he does not use oxygen at baseline. Patient dates that he came in tonight because despite the supplemental oxygen he continued or worsening shortness of breath. He denies any fevers, chest pains, lower extremity swelling, headaches, vision changes, focal weakness or numbness. Patient presented the emergency department he was significantly hypoxic and required a nonrebreather to maintain oxygen satu rations. Vital signs otherwise stable. Laboratory studies included a sodium 130, potassium 3.7, creatinine 0.98, white count 4.1, hemoglobin 13, platelet 122, AST 69, ALT 163, CRP 2.6, INR 1.0, troponin , D-dimer 682, lactic acid 2.3. ABG was obtained which showed pH of 7.45, PCO2 of 38, PO2 of 64. CT chest was obtained which showed patient's known right upper lobe mass, interstitial fibrosis, pretracheal lymph nodes, no pleural effusion was noted, groundglass opacities noted in the right middle lobe, left upper lobe, left lower lobe. Patient was admitted for further evaluation. I initially placed patient on a high flow nasal cannula 80% FiO2 he was maintaining oxygen saturations. I had a prolonged discussion with the patient regarding his COVID-19 pneumonia diagnosis, his significant comorbidities with his lung cancer history. Patient maintained that he wished to be full code at this time. Patient states that he is not sure what the next step for his cancer treatment is and states that he did have a trial of immunotherapy which he had a reaction to. - Related Data Allergies/Adverse Reactions: Allergies Allergy/AdvReac Type Severity Reaction Status Date / Time cephalexin [Cephalexin] Allergy Rash Verified 12/10/20 10:34 other environmental related Allergy Cannot Uncoded 05/12/20 21:29 things Remember Home Medications: Home Meds Budesonide/Formoterol [Symbicort 160-4.5 MCG] 4.5 - 160 mcg INH BID 03/17/13 [History] Losartan [Cozaar] 25 mg PO DAILY 03/17/13 [History] Sertraline [Zoloft] 50 mg PO DAILY 03/17/13 [History] Albuterol [Proair HFA] 108 mcg INH DAILY 04/29/17 [History] metFORMIN [Glucophage] 500 mg PO DAILY 04/29/17 [History] Past Medical History - Past Health History Medical/Surgical History: Denies Medical/Surgical History HEENT History: Reports: Cataract, Impaired Vision Cardiovascular History: Reports: Hypertension Respiratory History: Reports: Asthma, COPD Other Respiratory History: stage 3 lung cancer Gastrointestinal History: Reports: Chronic Diarrhea, GERD, Irritable Bowel Syndrome, Other (See Below) Other Gastrointestinal History: COLITIS Genitourinary History: Reports: None Musculoskeletal History: Reports: None Neurological History: Reports: None Psychiatric History: Reports: Depression Endocrine/Metabolic History: Reports: Diabetes, Type II Hematologic History: Reports: Anemia Immunologic History: Reports: None Oncologic (Cancer) History: Reports: Lung, Lymphoma Dermatologic History: Reports: None - Infectious Disease History Infectious Disease History: Reports: Chicken Pox, Measles, Mumps - Past Surgical History Head Surgeries/Procedures: Reports: None HEENT Surgical History: Reports: Cataract Surgery, Tonsillectomy Cardiovascular Surgical History: Reports: None Respiratory Surgical History: Reports: Lung Resection, Thoracotomy, Other (See Below) Other Respiratory Surgeries/Procedures: left lobe resection GI Surgical History: Reports: Cholecystectomy, Colonoscopy Other Oncologic Surgeries/Procedures: states dx in 2020. Follow up with PET scans. Social & Family History - Family History Family Medical History: No Pertinent Family History HEENT: Reports: Glaucoma Cardiac: Reports: Hypertension Respiratory: Reports: Other (See Below) Other Respiratory Family Hisory: emphysema GI: Reports: Colon Polyps - Tobacco Use Tobacco Use Status *Q: Never Tobacco User Second Hand Smoke Exposure: No - Caffeine Use Caffeine Use: Reports: Coffee - Living Situation & Occupation Living situation: Reports: with Family H&P Review of Systems - Review of Systems: Review Of Systems: Comprehensive ROS is negative, except as noted in HPI. Exam - Exam Exam: See Below - Vital Signs Vital Signs: Last Vital Signs Temp 97.6 F 12/18/20 23:25 Pulse 118 H 12/18/20 23:25 Resp 24 H 12/18/20 23:25 BP 134/89 12/18/20 23:25 Pulse Ox Weight: 184 lb - Exam Quality Assessment: Other (Patient is on high flow nasal cannula) General: Alert, Oriented HEENT: Conjunctiva Clear Neck: Supple, Trachea Midline Lungs: Decreased Breath Sounds (Significantly decreased breath sounds bilaterally, crackles noted in right mid and lower lung, patient in obvious respiratory distress on high flow nasal cannula), Crackles Cardiovascular: Regular Rhythm, Tachycardia GI/Abdominal Exam: Normal Bowel Sounds, Soft Extremities: Normal Inspection Peripheral Pulses: 2+: Radial (L), Radial (R) Skin: Warm, Dry Neurological: Cranial Nerves Intact Neuro Extensive - Mental Status: Alert, Oriented x3 Neuro Extensive - Motor, Sensory, Reflexes: CN II-XII Intact Psychiatric: Alert, Normal Affect - Patient Data Lab Results Last 24 hrs: Laboratory Results - last 24 hr 12/18/20 12/18/20 12/18/20 Range/Units 23:30 23:30 23:30 WBC 4.1 L (5.0-10.0) 10^3/uL RBC 5.08 (4.6-6.2) 10^6/uL Hgb 13.3 L (14.0-18.0) g/dL Hct 40.6 (40.0-54.0) % MCV 79.9 L (80-100) fL MCH 26.2 L (27.0-34.0) pg MCHC 32.8 L (33.0-35.0) g/dL Plt Count 122 L (150-450) 10^3/uL Neut % (Auto) 90.3 H (42.2-75.2) % Lymph % (Auto) 2.9 L (20.5-50.1) % [place] % (Auto) 6.6 (2-8) % Eos % (Auto) 0.2 L (1.0-3.0) % Baso % (Auto) 0.0 (0.0-1.0) % PT (9.0-12.0) SEC INR (0.9-1.2) D-Dimer, Quantitative (0-400) ng/mL ABG pH (7.35-7.45) ABG pCO2 (35-45) mmHg ABG pO2 (70-100) mmHg ABG HCO3 (22-26) mmol/L ABG O2 Saturation (95-100) % ABG Base Excess ((-2)-(+3)) mmol/L Rishabh Test O2 Delivery Device Sodium 130 L (136-145) mmol/L Potassium 3.7 (3.5-5.1) mmol/L Chloride 98 (98-107) mmol/L Carbon Dioxide 29 (21-32) mmol/L Anion Gap 6.7 L (7-13) mEq/L BUN 16 (7-18) mg/dL Creatinine 0.98 (0.70-1.30) mg/dL Est Cr Clr Drug Dosing 73.67 mL/min Estimated GFR (MDRD) > 60 BUN/Creatinine Ratio 16.3 (No establ ref range) Glucose 245 H (70-99) mg/dL Lactic Acid 2.3 H* (0.4-2.0) mmol/L Calcium 8.7 (8.5-10.1) mg/dL Magnesium 1.8 (1.8-2.4) mg/dL Total Bilirubin 0.4 (0.2-1.0) mg/dL AST 69 H (15-37) U/L ALT 163 H (16-63) U/L Alkaline Phosphatase 78 (46-116) U/L Troponin I High Sens 6 (<=76) pg/mL C-Reactive Protein (0.0-0.9) mg/dL Total Protein 7.0 (6.4-8.2) g/dL Albumin 3.0 L (3.4-5.0) g/dL Globulin 4.0 Albumin/Globulin Ratio 0.75 12/18/20 12/19/20 12/19/20 Range/Units 23:30 00:14 23:30 WBC (5.0-10.0) 10^3/uL RBC (4.6-6.2) 10^6/uL Hgb (14.0-18.0) g/dL Hct (40.0-54.0) % MCV (80-100) fL MCH (27.0-34.0) pg MCHC (33.0-35.0) g/dL Plt Count (150-450) 10^3/uL Neut % (Auto) (42.2-75.2) % Lymph % (Auto) (20.5-50.1) % [place] % (Auto) (2-8) % Eos % (Auto) (1.0-3.0) % Baso % (Auto) (0.0-1.0) % PT 9.7 (9.0-12.0) SEC INR 1.0 (0.9-1.2) D-Dimer, Quantitative 682 H (0-400) ng/mL ABG pH 7.45 (7.35-7.45) ABG pCO2 38 (35-45) mmHg ABG pO2 64 L (70-100) mmHg ABG HCO3 26.2 H (22-26) mmol/L ABG O2 Saturation 93 L (95-100) % ABG Base Excess 3 ((-2)-(+3)) mmol/L Rishabh Test Positive O2 Delivery Device Om Sodium (136-145) mmol/L Potassium (3.5-5.1) mmol/L Chloride (98-107) mmol/L Carbon Dioxide (21-32) mmol/L Anion Gap (7-13) mEq/L BUN (7-18) mg/dL Creatinine (0.70-1.30) mg/dL Est Cr Clr Drug Dosing mL/min Estimated GFR (MDRD) BUN/Creatinine Ratio (No establ ref range) Glucose (70-99) mg/dL Lactic Acid (0.4-2.0) mmol/L Calcium (8.5-10.1) mg/dL Magnesium (1.8-2.4) mg/dL Total Bilirubin (0.2-1.0) mg/dL AST (15-37) U/L ALT (16-63) U/L Alkaline Phosphatase (46-116) U/L Troponin I High Sens (<=76) pg/mL C-Reactive Protein 2.6 H (0.0-0.9) mg/dL Total Protein (6.4-8.2) g/dL Albumin (3.4-5.0) g/dL Globulin Albumin/Globulin Ratio Result Diagrams: 12/18/20 23:30 12/18/20 23:30 Shine Results Last 24 hrs: Microbiology 12/18/20 23:30 Anaerobic Blood Culture - Final Blood - Picc Line - Problem List (1) COVID SNOMED Code(s): 457145497 ICD Code: U07.1 - COVID-19 Status: Acute Current Visit: No (2) Hx of cancer of lung SNOMED Code(s): 335137056, 311878631 ICD Code: Z85.118 - PERSONAL HISTORY OF MALIGNANT NEOPLASM OF BRONCHUS AND LUNG Status: Acute Current Visit: No (3) Hypoxia SNOMED Code(s): 075702879 ICD Code: R09.02 - HYPOXEMIA Status: Acute Current Visit: No (4) ARDS (adult respiratory distress syndrome) SNOMED Code(s): 05763310, 44394911 ICD Code: J80 - ACUTE RESPIRATORY DISTRESS SYNDROME Status: Acute Current Visit: Yes Problem List Initiated/Reviewed/Updated: Yes Orders Last 24hrs: Active Orders 24 hr Category Date Time Status Admission Diagnosis [ADT] Stat ADT 12/19/20 00:57 Ordered Admission Status [Patient Status] [ADT] Routine ADT 12/19/20 00:57 Active Blood Glucose Check, Bedside [RC] BIDMEALS Care 12/19/20 01:36 Ordered Nurse Communication: Isolation [RC] ASDIRECTED Care 12/19/20 01:40 Ordered Oxygen Therapy [RC] PRN Care 12/19/20 01:36 Ordered Up With Assistance [RC] ASDIRECTED Care 12/19/20 01:36 Ordered VTE/DVT Education [RC] PER UNIT ROUTINE Care 12/19/20 01:36 Ordered Vital Signs [RC] Q4H Care 12/19/20 01:36 Ordered Nothing per Oral Now Diet [DIET] Diet 12/19/20 Breakfast Ordered BILIRUBIN DIRECT [CHEM] DAILY Lab 12/19/20 01:45 Stop Req CULTURE BLOOD [BC] Stat Lab 12/18/20 23:30 Results CULTURE BLOOD [BC] Stat Lab 12/18/20 23:35 Received Acetaminophen [TylenoL] Med 12/19/20 01:36 Ordered 650 mg PO Q4H PRN Enoxaparin [Lovenox] Med 12/19/20 09:00 Ordered 40 mg SUBCUT DAILY Remdesivir 100 mg Med 12/20/20 09:00 Ordered Sodium Chloride 0.9% [Normal Saline] 100 ml IV Q24H Remdesivir 200 mg Med 12/19/20 01:39 Ordered Sodium Chloride 0.9% [Normal Saline] 250 ml IV ONETIME dexAMETHasone [Decadron] Med 12/19/20 01:45 Ordered 6 mg IVPUSH DAILY Blood Culture x2 Reflex Set [OM.PC] Stat Oth 12/18/20 23:39 Ordered Isolation [COMM] Stat Oth 12/19/20 01:39 Ordered Code Status [Resuscitation Status] Stat Resus Stat 12/19/20 00:45 Ordered Medication Orders Acetaminophen (Acetaminophen 325 Mg Tab) 650 mg PO Q4H PRN PRN Reason: Pain (Mild 1-3)/fever Dexamethasone (Dexamethasone 4 Mg/Ml Sdv) 6 mg IVPUSH DAILY [facility] Stop: 12/27/20 09:01 Enoxaparin Sodium (Enoxaparin 40 Mg/0.4 Ml Syringe) 40 mg SUBCUT DAILY [facility] Remdesivir 200 mg/ Sodium (Chloride) 250 mls @ 250 mls/hr IV ONETIME ONE Stop: 12/19/20 02:38 Remdesivir 100 mg/ Sodium (Chloride) 100 mls @ 100 mls/hr IV Q24H [facility] Stop: 12/23/20 09:59 Assessment/Plan Comment:: 65-year-old male with significant pulmonary comorbidities including bilateral pulmonary neoplasms status post chemotherapy, radiation, immunotherapy and lobectomy who presented with acute hypoxic respiratory failure secondary to COVID-19 pneumonia. Acute hypoxic respiratory failure secondary to COVID-19 pneumonia/ARDS -Noted groundglass opacities in multiple lung elder with positive covid test on 12/09/20 - overall consistent with COVID-19 pneumonia in a background of interstitial fibrosis likely secondary to patient's recent lung cancer treatments, right upper lobe mass also noted on CT scan with patient's known non-small cell lung cancer -Patient is requiring initially nonrebreather and now high flow nasal cannula, current FiO2 is 80% - PA FiO2 ratio less than 100, patient meets criteria for severe ARDS - continuous pulse oximetry, telemetry monitoring -We will initiate treatment dexamethasone 6 mg daily for 10 days of treatment, remdesivir 200 mg initial with 100 mg daily - daily ALT level while on remdesivir - d/c if ALT >5x upper limit of normal -discussed the benefits and risks of remdesivir treatment patient was agreeable -Scheduled DuoNeb, albuterol nebulizer as needed -Self proning as tolerated -Zosyn for any superimposed bacterial pneumonia concerns -Overall patient is significantly poor prognosis, had prolonged discussion about CODE STATUS -at this point patient wishes to be full code despite the low chance of survival given his non-small cell lung cancer, history of lobectomy and severe ARDS secondary to COVID-19 pneumonia Diabetes mellituswell controlled on Metformin, hold Metformin, twice daily glucose checks for now, may need setting scale insulin given likely hyperglycemia with steroid administration Hypertensioncontinue losartan as studies have shown ours to be potentially beneficial Anxiety/depressioncontinue sertraline, ordered 0.5 mg Ativan every 8 hour for anxiety due to dyspnea Fluidsnone Electrolyteswithin normal lites Dietn.p.o. for now given respiratory status DVT prophylaxis Lovenox Subjective Update: 12/25/20 afebrile/vss //nasal can 4 liters at rest and sat 90-96% // rr 18 // hr 90-100. feels good // eating well// walking in room . no pains. no nausea and john resolving some. still desats with activity. lungs clearer with good air exchange bilaterally. no increased wob cor rrr no murmur s3/4 abd benign. neuro sharp. skin normal lab trending down , d dimer 340 , redrawn today for lfts and routine labs. pending. follow up with primary oncology in one week. cont o2 at home and taper as able. cont anticoag x 3 months unless dced by primary. avoid asa and ansaids. reviewed dc plans with patient and he is agreeable to all plans ad happy . boh Functional Status: Reports: Pain Controlled - Review of Systems General: Reports: No Symptoms HEENT: Reports: No Symptoms Pulmonary: Reports: No Symptoms, Shortness of Breath Cardiovascular: Reports: No Symptoms Gastrointestinal: Reports: No Symptoms Genitourinary: Reports: No Symptoms Musculoskeletal: Reports: No Symptoms Skin: Reports: No Symptoms Neurological: Reports: No Symptoms Psychiatric: Reports: No Symptoms - Patient Data Vitals - Most Recent: Last Vital Signs Temp 36.3 C 12/25/20 08:00 Pulse 73 12/25/20 08:00 Resp 16 12/25/20 08:00 BP 145/97 H 12/25/20 08:08 Pulse Ox 88 L 12/25/20 09:00 Weight - Most Recent: 82.463 kg I&O - Last 24 hours: Intake & Output 12/24/20 12/25/20 12/25/20 22:59 06:59 14:59 Intake Total 300 200 200 Balance 300 200 200 Lab Results - Last 24 hrs: Laboratory Results - last 24 hr 12/24/20 12/24/20 12/24/20 Range/Units 11:44 16:18 20:59 POC Glucose 272 H 272 H 243 H (70-99) mg/dL 12/25/20 Range/Units 08:03 POC Glucose 129 H (70-99) mg/dL Med Orders - Current: Current Medications Acetaminophen (Acetaminophen 325 Mg Tab) 650 mg PO Q4H PRN PRN Reason: Pain (Mild 1-3)/fever Last Admin: 12/24/20 21:06 Dose: 650 mg Documented by: Albuterol (Albuterol 6.7 Gm Inhaler) 6.7 gm INH Q4H PRN PRN Reason: Shortness of Breath Amoxicillin/Clavulanate Potassium (Amoxicillin/Clavulanate K 875-125 Mg Tab) 1 tab PO Q12HR [facility] Last Admin: 12/25/20 08:08 Dose: 1 tab Documented by: Dexamethasone (Dexamethasone 4 Mg/Ml Sdv) 6 mg IVPUSH DAILY [facility] Stop: 12/27/20 09:01 Last Admin: 12/25/20 08:11 Dose: 6 mg Documented by: Dextrose/Water (50% Dextrose In Water 50 Ml Syringe) 50 ml IVPUSH Q15M PRN PRN Reason: Hypoglycemia Glucagon (Glucagon,Human Recombinant 1 Mg Vial) 1 mg IM Q15M PRN PRN Reason: Hypoglycemia Glucagon (Glucagon,Human Recombinant 1 Mg Vial) 1 mg IM Q15M PRN PRN Reason: Hypoglycemia Insulin Human Lispro (Insulin Lispro 100 Units/Ml 3 Ml Vial) 0 unit SUBCUT WITHMEALSANDBED [facility]; Protocol Last Admin: 12/25/20 08:22 Dose: Not Given Documented by: Lorazepam (Lorazepam 0.5 Mg Tab) 0.5 mg PO Q8H PRN PRN Reason: Anxiety Last Admin: 12/24/20 21:07 Dose: 0.5 mg Documented by: Losartan Potassium (Losartan 50 Mg Tab) 50 mg PO DAILY [facility] Last Admin: 12/25/20 08:08 Dose: 50 mg Documented by: Metformin HCl (Metformin 500 Mg Tab) 500 mg PO DAILY [facility] Last Admin: 12/25/20 08:07 Dose: 500 mg Documented by: Mometasone Furoate/Formoterol Fumar (Formoterol/Mometasone 200-5 Mcg 8.8 Gm Inhaler) 0 puff IH BID [facility] Last Admin: 12/25/20 08:09 Dose: 2 puff Documented by: Rivaroxaban (Rivaroxaban 10 Mg Tab) 10 mg PO WITHDINNER [facility] Last Admin: 12/24/20 19:45 Dose: 10 mg Documented by: Sertraline HCl (Sertraline 50 Mg Tab) 50 mg PO DAILY [facility] Last Admin: 12/25/20 08:08 Dose: 50 mg Documented by: Sodium Chloride (Sodium Chloride 0.9% 10 Ml Syringe) 10 ml FLUSH ASDIRECTED PRN PRN Reason: IV Use Last Admin: 12/25/20 08:13 Dose: 10 ml Documented by: Discontinued Medications Albuterol (Albuterol 0.083% 2.5 Mg/3 Ml Neb Soln) 2.5 mg NEB Q2H PRN PRN Reason: Wheezing Albuterol (Albuterol 6.7 Gm Inhaler) 0 gm INH Q4HR [facility] Albuterol/Ipratropium (Albuterol/Ipratropium 3.0-0.5 Mg/3 Ml Neb Soln) 3 ml NEB Q6HRRT [facility] Last Admin: 12/19/20 08:20 Dose: 3 ml Documented by: Enoxaparin Sodium (Enoxaparin 40 Mg/0.4 Ml Syringe) 40 mg SUBCUT DAILY [facility] Last Admin: 12/19/20 09:17 Dose: 40 mg Documented by: Enoxaparin Sodium (Enoxaparin 40 Mg/0.4 Ml Syringe) 40 mg SUBCUT Q12HR [facility] Last Admin: 12/21/20 08:27 Dose: 40 mg Documented by: Remdesivir 200 mg/ Sodium (Chloride) 250 mls @ 250 mls/hr IV ONETIME ONE Stop: 12/19/20 02:38 Last Admin: 12/19/20 03:03 Dose: 250 mls/hr Documented by: Remdesivir 100 mg/ Sodium (Chloride) 100 mls @ 100 mls/hr IV Q24H [facility] Stop: 12/23/20 09:59 Last Admin: 12/23/20 08:36 Dose: 100 mls/hr Documented by: Sterile Water (Sterile Water For Injection) Confirm Administered Dose 40 mls @ as directed .ROUTE .STK-MED ONE Stop: 12/19/20 02:38 Last Admin: 12/19/20 03:05 Dose: Not Given Documented by: Piperacillin Sod/Tazobactam (Sod 3.375 gm/ Sodium Chloride) 100 mls @ 200 mls/hr IV Q6H [facility] Last Infusion: 12/19/20 09:57 Dose: Infused Documented by: Piperacillin Sod/Tazobactam (Sod 3.375 gm/ Sodium Chloride) 100 mls @ 200 mls/hr IV Q6HR [facility] Last Admin: 12/23/20 12:20 Dose: 200 mls/hr Documented by: Insulin Glargine (Insulin Glarg,Human.Rec.Analog 100 Unit/Ml) 20 unit SUBCUT ONETIME ONE Stop: 12/23/20 17:18 Last Admin: 12/23/20 17:34 Dose: 20 unit Documented by: Insulin Human Lispro (Insulin Lispro 100 Units/Ml 3 Ml Vial) 0 unit SUBCUT TIDMEALS [facility]; Protocol Last Admin: 12/19/20 17:11 Dose: 1 units Documented by: Losartan Potassium (Losartan 50 Mg Tab) 25 mg PO DAILY [facility] Last Admin: 12/24/20 12:02 Dose: Not Given Documented by: Losartan Potassium (Losartan 25 Mg Tab) 25 mg PO DAILY [facility] Last Admin: 12/24/20 12:02 Dose: Not Given Documented by: Losartan Potassium (Losartan 50 Mg Tab) 50 mg PO ONETIME ONE Stop: 12/24/20 12:01 Last Admin: 12/24/20 11:48 Dose: 50 mg Documented by: Sodium Chloride (Sodium Chloride 0.9% 10 Ml Syringe) 10 ml IV ASDIRECTED PRN PRN Reason: Keep Vein Open Last Admin: 12/19/20 13:56 Dose: 10 ml Documented by: - Exam Quality Assessment: Reports: Supplemental Oxygen General: Reports: Alert, Oriented HEENT: Reports: Pupils Equal, Pupils Reactive, EOMI, Mucous Membr. Moist/[place] Neck: Reports: Supple Lungs: Reports: Clear to Auscultation, Normal Respiratory Effort Cardiovascular: Reports: Regular Rate, Regular Rhythm GI/Abdominal Exam: Normal Bowel Sounds, Soft, Non-Tender, No Organomegaly, No Distention, No Abnormal Bruit, No Mass, Pelvis Stable (Male) Exam: No Hernia, Normal Inspection, Normal Prostate, Circumcised Rectal (Males) Exam: Normal Exam, Normal Rectal Tone, Prostate Normal Back Exam: Reports: Normal Inspection, Full Range of Motion Extremities: Normal Inspection, Normal Range of Motion, Non-Tender, No Pedal Edema, Normal Capillary Refill Skin: Reports: Warm, Dry, Intact Wound/Incisions: Reports: Healing Well Neurological: Reports: No New Focal Deficit Psy/Mental Status: Reports: Alert, Normal Affect, Normal Mood
[2020-12-25 11:57] LABS: ANION GAP 14.1 mEq/L (7-13); CHLORIDE,CL 101 mmol/L (98-107); SODIUM,NA 139 mmol/L (136-145)
[2020-12-25 13:04] VITALS: BP 131/93; PULSE 96
== END 2020-12-25 15:15 | disposition home or self-care (01) | DRG 177 ==
LOC: DL.ED 22:56 → DL.MS 12-19 00:57
PROVIDERS: ADMIT Internal Medicine; ATTEND Pediatrics
PROC: XW033E5 Introduction of Remdesivir Anti-infective into Peripheral Vein, Percutaneous Approach, New Technology Group 5 (ICD-10-PCS; principal; 2020-12-19)
PROC: 3E0333Z Introduction of Anti-inflammatory into Peripheral Vein, Percutaneous Approach (ICD-10-PCS; 2020-12-19)
PROC: 5A0955A Assistance with Respiratory Ventilation, Greater than 96 Consecutive Hours, High Flow/Velocity Cannula (ICD-10-PCS; 2020-12-19)
PROC: 8E0ZXY6 Isolation (ICD-10-PCS; 2020-12-19)
DX: U07.1 COVID-19 (principal); J80 Acute respiratory distress syndrome; J12.82 Pneumonia due to coronavirus disease 2019; C34.90 Malignant neoplasm of unspecified part of unspecified bronchus or lung; J44.0 Chronic obstructive pulmonary disease with (acute) lower respiratory infection; F41.9 Anxiety disorder, unspecified; F32.9 Major depressive disorder, single episode, unspecified; H54.7 Unspecified visual loss; K21.9 Gastro-esophageal reflux disease without esophagitis; D69.6 Thrombocytopenia, unspecified; R79.89 Other specified abnormal findings of blood chemistry; Z85.118 Personal history of other malignant neoplasm of bronchus and lung; Z88.1 Allergy status to other antibiotic agents; Z79.84 Long term (current) use of oral hypoglycemic drugs; Z79.899 Other long term (current) drug therapy; Z98.49 Cataract extraction status, unspecified eye; Z28.82 Immunization not carried out because of caregiver refusal
CPT/HCPCS: 36415; 36600; 71250; 80053; 82803; 82947; 83605; 83735; 84460; 84484; 85025; 85379; 85610; 85651; 86140; 87040; 93005; 94640; 99284; A9270-GY; J1100; J1642; J1650; J1815-GY; J2543; J7050; J7620-GY

== ENCOUNTER 2021-06-25 09:35 | Emergency (ER) | payer OTHER ==
[2021-06-25 09:59] VITALS: BP 122/79; PULSE 152
[2021-06-25 10:22] LABS: ANION GAP 12.4 mEq/L (7-13); CHLORIDE,CL 98 mmol/L (98-107); ESTIMATED GFR > 60; SODIUM,NA 137 mmol/L (136-145)
[2021-06-25] MEDS ORDERED: Iopamidol 755 Mg/ML 100 ML Bottle IVPUSH ONE (10:39)
[2021-06-25] MEDS ORDERED: Rivaroxaban 10 MG Tab PO ONE (12:29)
[2021-06-25] MEDS ORDERED: Levofloxacin/Dextrose 5%-Water 500 MG in Premix Bag 1 BAG IV ONE (12:31)
== END 2021-06-25 14:01 | disposition home or self-care (01) ==
LOC: DL.ED 09:35
DX: J18.9 Pneumonia, unspecified organism (principal); I26.99 Other pulmonary embolism without acute cor pulmonale; I10 Essential (primary) hypertension; J44.9 Chronic obstructive pulmonary disease, unspecified; E11.9 Type 2 diabetes mellitus without complications; Z88.1 Allergy status to other antibiotic agents; Z88.8 Allergy status to other drugs, medicaments and biological substances; Z79.899 Other long term (current) drug therapy; Z79.01 Long term (current) use of anticoagulants; Z87.891 Personal history of nicotine dependence
CPT/HCPCS: 36415; 71260; 80053; 82150; 83605; 83690; 83735; 84484; 85025; 85379; 87040; 93005; 93010; 96365; 99284; 99285; A9270; J1642; J1956; Q9967